=== PATIENT | female | born 1975 | race Caucasian/White ===

== ENCOUNTER 2017-02-21 10:27 | Inpatient (IN) ==
[2017-02-21] MEDS ORDERED: *HR* Morphine 2 MG/ML SYRINGE IVP ONE (10:33)
[2017-02-21] MEDS ORDERED: 0.9 % Sodium Chloride 1,000 ML IVC ONE (10:33)
[2017-02-21] MEDS ORDERED: Ondansetron 4 MG/2 ML VIAL IVP ONE (10:33)
--- NOTE | 2017-02-21 10:37 | Emergency Department Note ---
Disposition Clinical Impression: Vomiting and diarrhea, Colitis Disposition: Admitted As Inpatient Condition: Fair Referrals: NO,PCP [Non-Partnered Physician] - Forms: Work/School Release, ED Satisfaction Letter Time of Disposition: 11:41 Abdominal Pain HPI - General Chief Complaint: ED Abdominal Pain Stated Complaint: abd n/v/d Time Seen by Provider: 02/21/17 10:33 Source: EMS Nursing Notes Reviewed: Yes Vital Signs Reviewed: Yes - History of Present Illness HPI Narrative: 41-year-old female presents emergency room for abdominal pain nausea vomiting and diarrhea. Symptoms started on Tuesday after she ate some taco salad. She states she started throwing up almost immediately after eating. She has had persistent vomiting since Tuesday as well as diarrhea. She has not noted any blood in her vomit or stool. No documented fevers. She is complaining of lower abdominal pain and cramping. She denies any urinary symptoms. She does admit to some chills and riders. She was brought in via ambulance. Onset (ago): day(s) Consistency: constant Location: LLQ, RLQ, suprapubic Pain Severity: moderate Pain Scale: 8 Quality: cramping, aching Migration to: suprapubic Improves with: nothing Worsens with: eating, bowel movement, vomiting Associated symptoms: Reports: nausea, vomiting, diarrhea, chills Treatments prior to arrival: none - Related Data Home Medications Medication Instructions Recorded Confirmed Duloxetine HCl [Cymbalta] 60 mg PO DAILY 04/25/15 08/10/16 Esomeprazole Magnesium [Nexium] 40 mg PO DAILY 04/25/15 08/10/16 Lurasidone HCl [Latuda] 120 mg PO DAILY 04/25/15 08/10/16 Trazodone HCl [TraZODone] 200 mg PO HS 04/25/15 08/10/16 Albuterol Sulfate [Proair Hfa] 1 puff IH TID 05/24/16 08/10/16 Baclofen 10 mg PO BID PRN 05/24/16 08/10/16 Cholecalciferol (Vitamin D3) 1,000 unit PO DAILY 05/24/16 08/10/16 [Vitamin D3] HydrOXYzine Pamoate [Vistaril] 100 mg PO TID 05/24/16 08/10/16 Levothyroxine Sodium [Tirosint] 50 mcg PO DAILY 05/24/16 08/10/16 Ondansetron ODT [Zofran ODT] 4 mg SL Q8H PRN 05/24/16 08/10/16 Prazosin HCl [Minipress] 5 mg PO HS 05/24/16 08/10/16 Propranolol HCl 20 mg PO HS 05/24/16 08/10/16 Ranitidine HCl [Zantac] 150 mg PO BID 05/24/16 08/10/16 Fluticasone Propionate Nasal 1 spray NS DAILY 05/25/16 08/10/16 [Flonase] Vitamin B Complex [B Complex] 1 tab PO DAILY 05/25/16 08/10/16 Albuterol Neb [Proventil Neb] 2.5 mg IH Q4HR 08/10/16 08/10/16 Eluxadoline [Viberzi] 150 mg PO BID 08/10/16 08/10/16 Promethazine [Phenergan] 50 mg RC Q8HR 08/10/16 08/10/16 Previous Rx's Medication Instructions Recorded Promethazine [Phenergan] 25 mg PO Q8HR #10 tablet 08/07/16 Hyoscyamine SL [Levsin Sl] 0.125 mg SL TID #90 tab.subl 08/11/16 Allergies Allergy/AdvReac Type Severity Reaction Status Date / Time latex Allergy Rash Verified 08/10/16 13:30 naproxen [From Naprosyn] Allergy Swelling Verified 08/10/16 13:30 of Lip/Tongue/Throat bismuth subsalicylate AdvReac Vomiting Verified 08/10/16 13:30 [From Pepto-Bismol] caffeine AdvReac Vomiting Verified 08/10/16 13:30 codeine AdvReac Vomiting Verified 08/10/16 13:30 Review of Systems: Gen.: No fevers or chills or new weakness Eyes: Denies double vision or any vision changes Ears: Denies any otalgia Pharynx: Denies sore throat CV: Denies chest pain. Denies palpitations Respiratory: Denies any cough or sputum production. No shortness of breath. GI: + for abdominal pain, nausea vomiting diarrhea Neuro: Denies any headache. No problems with ambulation. No numbness. 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 Psychiatric history: Reports: anxiety, bipolar, PTSD, prior suicide attempt, previous psychiatric hospitalization - Social History Smoking status: Current every day smoker Alcohol use: Reports: none Drug use: Reports: marijuana Physical Exam - General Limitations: no limitations, other (+rigors ) General appearance: anxious, in distress - Head Head exam: atraumatic, normocephalic - Eye Eye exam: Present: normal appearance - ENT ENT exam: mucous membranes dry - Chest Chest inspection: Present: normal inspection - Respiratory Respiratory exam: Present: normal lung sounds bilaterally - Cardiovascular Cardiovascular exam: Present: normal rhythm, tachycardia - Abdominal Exam Abdominal exam: Present: soft, tenderness (Diffuse lower abdominal tenderness. No guarding or rebound. Normal bowel sounds.) - Extremities Exam Extremities exam: Present: normal inspection - Neurological Exam Neurological exam: Present: alert, oriented X3 - Psychiatric Psychiatric exam: Present: normal affect, anxious - Skin Skin exam: Present: warm, dry, intact Course Course Narrative: Patient was given pain medication and antiemetics and IV fluids. Her lactate did come back elevated at 4. CT scan showed evidence of either infectious or inflammatory colitis. She needs to be admitted for further care and treatment with IV antibiotics and IV fluids. She remains afebrile. No significant white count elevation. Vital Signs Temperature 98.9 F 02/21/17 10:29 Pulse Rate 122 02/21/17 10:29 Respiratory Rate 22 02/21/17 10:29 Blood Pressure 136/98 02/21/17 10:29 O2 Sat by Pulse Oximetry 98 02/21/17 10:29 Temperature 98.9 F 02/21/17 10:29 Pulse Rate 62 02/21/17 11:39 Respiratory Rate 18 02/21/17 11:39 Blood Pressure 99/55 02/21/17 11:39 O2 Sat by Pulse Oximetry 98 02/21/17 11:39 Oxygen Delivery Oxygen Delivery Room Air Abdominal Pain - MDM Narrative Medical decision making narrative: will continue fluids, I have ordered IV Levaquin and IV Flagyl to treat for possible infectious colitis. Her pain on exam is correlated to what is seen on CT scan. She does have an elevated lactate level. She is on her second liter fluid at this time. - Medical Records Medical records reviewed: Yes I reviewed the patient's medical records. - Lab Data Lab results reviewed: Yes I reviewed the patient's lab results. Result diagrams: 02/21/17 10:50 02/21/17 10:50 Lab Results 02/21/17 02/21/17 02/21/17 Range/Units 10:35 10:50 10:50 WBC 12.1 H (4.3-11.1) K/mcL RBC 5.47 H (3.82-4.97) M/mcL Hgb 15.9 H (11.5-15.4) g/dL Hct 47.2 H (35.3-44.9) % MCV 86.3 (83.0-100.0) fL MCH 29.1 (28.0-33.3) pg MCHC 33.7 (31.6-35.5) g/dL RDW 14.6 H (11.5-14.5) % Plt Count 331 (140-400) K/mcL MPV 9.9 (9.4-12.4) fL Immature Gran % 0.5 (0-4) % Seg Neutrophils % 74.1 % Lymphocytes % 16.7 % Monocytes % 7.5 % Eosinophils % 0.7 % Basophils % 0.5 % Neutrophils # 8.9 (1.6-8.9) K/mcL Lymphocytes # 2.0 (0.6-4.6) K/mcL Monocytes # 0.9 (0.0-1.3) K/mcL Eosinophils # 0.1 (0.0-0.6) K/mcL Basophils # 0.1 (0.0-0.2) K/mcL Sodium 143 (136-145) mEq/L Potassium 3.4 L (3.5-4.5) mEq/L Chloride 109 (98-109) mEq/L Carbon Dioxide 21 (19-29) mEq/L BUN 6 L (7-20) mg/dL Creatinine 0.85 (0.57-1.11) mg/dL Est GFR ( Amer) > 60 (> 60) Est GFR (Non-Af Amer) > 60 (> 60) BUN/Creatinine Ratio 7 (6-26) Glucose 108 H (70-99) mg/dL POC Glucose 112 H (58-89) Calculated Osmolality 294 (280-300) Lactic Acid (0.5-2.2) mmol/L Calcium 9.9 (8.6-10.8) mg/dL Total Bilirubin 0.3 (0.2-1.2) mg/dL Direct Bilirubin 0.1 (0.0-0.5) mg/dL Indirect Bilirubin 0.2 (0.0-1.2) mg/dL AST 10 (5-34) Units/L ALT 12 (0-55) Units/L Alkaline Phosphatase 138 H (38-126) Units/L Serum Total Protein 7.7 (6.0-8.3) g/dL Albumin 4.0 (3.5-5.0) g/dL Globulin 3.7 H (2.4-3.5) g/dL Albumin/Globulin Ratio 1.1 (1.1-2.2) Lipase 36 (8-78) Units/L // Range/Units 10:50 WBC (4.3-11.1) K/mcL RBC (3.82-4.97) M/mcL Hgb (11.5-15.4) g/dL Hct (35.3-44.9) % MCV (83.0-100.0) fL MCH (28.0-33.3) pg MCHC (31.6-35.5) g/dL RDW (11.5-14.5) % Plt Count (140-400) K/mcL MPV (9.4-12.4) fL Immature Gran % (0-4) % Seg Neutrophils % % Lymphocytes % % Monocytes % % Eosinophils % % Basophils % % Neutrophils # (1.6-8.9) K/mcL Lymphocytes # (0.6-4.6) K/mcL Monocytes # (0.0-1.3) K/mcL Eosinophils # (0.0-0.6) K/mcL Basophils # (0.0-0.2) K/mcL Sodium (136-145) mEq/L Potassium (3.5-4.5) mEq/L Chloride (98-109) mEq/L Carbon Dioxide (19-29) mEq/L BUN (7-20) mg/dL Creatinine (0.57-1.11) mg/dL Est GFR ( Amer) (> 60) Est GFR (Non-Af Amer) (> 60) BUN/Creatinine Ratio (6-26) Glucose (70-99) mg/dL POC Glucose (58-89) Calculated Osmolality (280-300) Lactic Acid 4.0 H* (0.5-2.2) mmol/L Calcium (8.6-10.8) mg/dL Total Bilirubin (0.2-1.2) mg/dL Direct Bilirubin (0.0-0.5) mg/dL Indirect Bilirubin (0.0-1.2) mg/dL AST (5-34) Units/L ALT (0-55) Units/L Alkaline Phosphatase (38-126) Units/L Serum Total Protein (6.0-8.3) g/dL Albumin (3.5-5.0) g/dL Globulin (2.4-3.5) g/dL Albumin/Globulin Ratio (1.1-2.2) Lipase (8-78) Units/L - Radiology Data Radiology results reviewed: Yes I reviewed the patient's radiology results.
[2017-02-21] MEDS ORDERED: *HR* Promethazine 25 MG/ML VIAL IVP ONE (10:55)
[2017-02-21 11:03] LABS: Basophils # 0.1 K/mcL (0.0-0.2); Basophils % 0.5 %; Eosinophils # 0.1 K/mcL (0.0-0.6); Eosinophils % 0.7 %; Hematocrit 47.2 % (35.3-44.9); Hemoglobin 15.9 g/dL (11.5-15.4); Immature Granulocytes % 0.5 % (0-4); Lymphocytes % 16.7 %; Mean Corpuscular HGB Conc 33.7 g/dL (31.6-35.5); Mean Corpuscular Hemoglobin 29.1 pg (28.0-33.3); Mean Corpuscular Volume 86.3 fL (83.0-100.0); Mean Platelet Volume 9.9 fL (9.4-12.4); Monocytes # 0.9 K/mcL (0.0-1.3); Monocytes % 7.5 %; Neutrophils # 8.9 K/mcL (1.6-8.9); Platelet Count 331 K/mcL (140-400); Red Blood Count 5.47 M/mcL (3.82-4.97); Red Cell Distribution Width 14.6 % (11.5-14.5); Segmented Neutrophils % 74.1 %
[2017-02-21 11:14] LABS: Alanine Aminotransferase 12 Units/L (0-55); Albumin/Globulin Ratio 1.1 (1.1-2.2); Alkaline Phosphatase 138 Units/L (38-126); Aspartate Amino Transferase 10 Units/L (5-34); BUN/Creatinine Ratio 7 (6-26); Bilirubin,Direct 0.1 mg/dL (0.0-0.5); Bilirubin,Indirect 0.2 mg/dL (0.0-1.2); Bilirubin,Total 0.3 mg/dL (0.2-1.2); Blood Urea Nitrogen 6 mg/dL (7-20); Calcium 9.9 mg/dL (8.6-10.8); Carbon Dioxide 21 mEq/L (19-29); Chloride 109 mEq/L (98-109); Globulin 3.7 g/dL (2.4-3.5); Glucose 108 mg/dL (70-99); Lipase 36 Units/L (8-78); Osmolality,Calculated 294 (280-300); Potassium 3.4 mEq/L (3.5-4.5); Sodium 143 mEq/L (136-145); Total Protein 7.7 g/dL (6.0-8.3); eGFR For African Americans > 60 (> 60); eGFR For Non-African Americans > 60 (> 60)
[2017-02-21] MEDS ORDERED: MetroNIDAZOLE 500 MG/100 ML 500 MG/100 ML BAG IVPB ONE (11:39)
[2017-02-21] MEDS ORDERED: *HR* HYDROmorphone (PF) 1 MG/ML SYRINGE IVP ONE (11:39)
[2017-02-21 11:45] LABS: Bilirubin,Urine Negative (Negative); Blood,Urine Trace (Negative); Clarity,Urine Clear (Clear); Color,Urine Yellow (Yellow); Glucose,Urine (UA) Normal (Normal); Ketones,Urine Trace mg/dL (Negative); Leukocyte Esterase,Urine Negative (Negative); Nitrite,Urine Negative (Negative); PH,Urine 7.5 pH Units (5.0-8.0); Protein,Urine Negative (Neg-Trace); Specific Gravity,Urine 1.011 (1.010-1.025); Urobilinogen,Urine Normal (Normal)
[2017-02-21 11:48] LABS: Bacteria,Urine None Seen per hpf (None-Few); Hyaline Casts,Urine None Seen per lpf (None-Few); Squamous Epithelial Cell,Urine Many per lpf (None-Few); WBC,Urine 0-3 per hpf (0-3)
[2017-02-21] MEDS: Levofloxacin 750 MG/150 ML 750 MG/150 ML BAG IVPB SCH (11:54)
--- NOTE | 2017-02-21 13:05 | Event Note ---
Date of Encounter: 02/21/17 Time of Encounter: 13:02 Patient seen and examined with nurse practitioner. Food poisoning versus gastroenteritis. Symptoms of intractable abdominal pain nausea vomiting and diarrhea that are both nonbloody for the past 2 days. If you brighten the emergency room. CT scan shows evidence of colitis. In. Antibiotics with ciprofloxacin and Flagyl until stool studies are back. Lactic acid is for. 2 L of fluids were given in the emergency room and continue hydration. Continue NPO. No prior similar problems. she has history of irritable bowel syndrome. Hemodynamically stable except for intermittent hypotension after opiates given in the emergency room. She wants some time to decide on a code status.
[2017-02-21] MEDS ORDERED: Ketorolac 30 MG/ML VIAL IVP PRN (13:18)
[2017-02-21] MEDS ORDERED: Naloxone 0.4 MG/ML INJ IVP PRN (13:18)
[2017-02-21] MEDS ORDERED: *HR* LORazepam 2 MG/ML VIAL IVP ONE (13:28)
--- NOTE | 2017-02-21 13:56 | Internal Med History&Physical ---
Date of Encounter: 02/21/17 Time of Encounter: 13:00 Assessment and Plan (1) Abdominal pain Current visit: Yes Status: Acute Assess: Ms. Wei presents with chief complaint of severe lower abdominal pain with nausea, vomiting, and diarrhea for the past three days. Patient states she became ill after eating a taco salad at home on Tuesday. Her mother reports that no one else became ill from eating the same food. Ms. Wei reports that she is unable to keep anything down due to the continuing nausea and vomiting, and that she continues to experience diarrhea as well. Patient denies any blood present in stool or emesis. Diagnosis for this patient is food poisoning versus gastroenteritis based on current symptoms. Patient's current WBCs on initial blood draw is 12.1. Plan: Blood cultures ordered Urine cultures ordered based on patient's hx of UTIs Stool cultures ordered to include C. difficile and ova/parasites IV Zofran ordered PRN IV Protonix 40 mg daily ordered Supplemental O2 ordered NPO diet except ice chips as tolerated Continue IV levaquin 750 mg daily beginning 02/22/17 due to patient receiving initial dose in ED Resume Flagyl 500 mg Q8 at 21:00 today (02/22/17) Monitor intake and output and daily weight Falls precautions/bed rest w/bathroom privileges/[id number] orders due to patient's dizziness Monitor patient and vital signs Qualifiers: Abdominal location: lower abdomen, unspecified Qualified Code(s): R10.30 - Lower abdominal pain, unspecified (2) Vomiting and diarrhea Current visit: Yes Status: Acute Assess: Ms. Wei reports that she is unable to keep anything down due to the continuing nausea and vomiting, and that she continues to experience diarrhea as well. Patient denies any blood present in stool or emesis. Plan: NPO diet except ice chips as tolerated Cultures for blood, urine, and stool ordered IV fluids 0.9% NS @ 125 mL/HR for hydration Follow-up labs ordered IV Zofran ordered PRN IV Protonix ordered 40 mg daily Monitor input and output Monitor daily weight (3) Leukocytosis (leucocytosis) Current visit: Yes Status: Acute Assess: Patient presents acute leukocytosis related to possible worsening or gastroenteritis. Patient's initial WBCs are 12.1 at first blood draw in ED. Plan: Continue IV levaquin 750 mg daily beginning 02/22/17 due to patient receiving initial dose in ED Resume Flagyl 500 mg Q8 at 21:00 today (02/22/17) Blood cultures ordered Urine cultures ordered based on patient's hx of UTIs Stool cultures ordered to include C. difficile and ova/parasites Repeat lactic acid ordered Qualifiers: Leukocytosis type: lymphocytosis Qualified Code(s): D72.820 - Lymphocytosis (symptomatic) (4) Hypokalemia Current visit: Yes Status: Acute Assess: Patient presents with acute hypokalemia most likely due to current nausea, vomiting, diarrhea, and dehydration for the past three days. Plan: IV Potassium piggyback 10 meq ONCE ordered Follow-up labs ordered (5) Irritable bowel syndrome Current visit: Yes Status: Chronic Assess: Patient presents with history of irritable bowel syndrome. Plan: Continue patient's current medications NPO diet except ice chips as tolerated until current symptoms subside Fecal occult guaic ordered Monitor input and output Qualifiers: Irritable bowel syndrome type: with both diarrhea and constipation Qualified Code(s): K58.2 - Mixed irritable bowel syndrome (6) GERD (gastroesophageal reflux disease) Current visit: Yes Status: Chronic Assess: Patient presents with a history of chronic gastroesophageal reflux disease. Plan: IV Zofran ordered PRN IV Protonix 40 mg daily ordered Continue patient's medications Qualifiers: Esophagitis presence: esophagitis presence not specified Qualified Code(s) : K21.9 - Gastro-esophageal reflux disease without esophagitis (7) DVT prophylaxis Current visit: Yes Status: Acute Assess: Patient placed on DVT prophylaxis due to inpatient protocol and current bedrest status. Plan: Heparin 5,000 units SQ Q8 ordered Internal Medicine - H&P: HPI Chief complaint: Abdominal pain/N/V/D Admitted From: Emergency Dept Plans for Post Hospital Care: Home History of present illness: Ms. Wei is a 41 year old female who presents from the ED with chief complaint of severe lower abdominal pain with nausea, vomiting, and diarrhea for the past three days. Patient states she became ill after eating a taco salad at home on Tuesday. Her mother reports that no one else became ill from eating the same food. Ms. Wei reports that she is unable to keep anything down due to the continuing nausea and vomiting, and that she continues to experience diarrhea as well. Patient denies any blood present in stool or emesis. Patient denies fever but reports chills and uncontrollable shaking earlier today (02/21/17). Patient states that the pain is located in the suprapubic area more so than the epigastric area. She also states that she had something similar one year ago and reports Dr. Gardiner performed an EGD and colonoscopy. She states the occurrence last year was attributed to heightened stress in her life. Ms. Wei has a history of IBS, GERD, tendinitis, fibromyalgia, neuropathy, asthma, COPD, migraines, osteoporosis, thyroid disease , anxiety, depression, bipolar disorder, borderline personality disorder, PTSD, and prior suicide attempts involving pills and cutting. Patient's lactic acid is currently 4.0 on initial blood draw ED. Patient to be admitted as inpatient due to elevated lactic acid and will be placed nothing by mouth with ice chips as tolerated. She received IV Zofran, IV Protonix, and IV fluids. Orders have been placed for a urine tox screen, urine cultures, blood cultures, and stool cultures (to include ova and parasites and C. difficile). Lactic acid will be repeated. We will continue IV levaquin 750 mg daily beginning 02/22/17 due to patient receiving dose today in ED and IV flagyl 500 mg Q8 resuming at 21:00 today (02/21/17) for infection coverage. Bed rest, falls precautions, and up- with assist orders placed due to patient's current dizziness. Patient to be monitored closely. Past Med Surg Social Fam HX - Past Medical History Source: patient Medical history: arthritis, asthma, COPD, fibromyalgia, GERD, migraine, osteoporosis, thyroid disease, other Psychiatric history: anxiety, bipolar, depression, PTSD, prior suicide attempt ( Patient reports multiple attempts using pills and cutting wrists.), previous psychiatric hospitalization, other (Borderline personality disorder) - Past Surgical History Surgical History: hysterectomy, other (Surgery for deviated septum) - Social History Smoking Status: Current every day smoker Packs per day: 1 PPD Smokeless Tobacco Status: No Alcohol use: none Drug use: marijuana Current living situation: Home, With Family Activity Level: Independent ambulation Recent Out of Country Travel Within the Last 8 Weeks: No Exposure or Possible Exposure to Illness During Travel: No - Family History Father Adopted: No Race: Family Member Ethnicity: Non- Living Status: Age at : 58 Cause of : Esophageal cancer Hx Family Cardiac Disorders: Yes (hyperlipidemia) Hx Family Respiratory Disorders: No Hx Family Cancer: Yes (Esophageal) Hx Family GI Disorders: No Hx Family Endocrine Disorder: No Hx Family Neuromuscular Disorders: No Hx Family Neurologic Disorders: Yes (anxiety) Hx Family HEENT Disorders: No Hx Family Autoimmune Disorders: No Mother Adopted: No Race: Family Member Ethnicity: Non- Living Status: Still Living Hx Family Cardiac Disorders: No Hx Family Respiratory Disorders: Yes (COPD) Hx Family Cancer: No Hx Family GI Disorders: Yes (Kidney stones, IBS) Hx Family Endocrine Disorder: No Hx Family Neuromuscular Disorders: No Hx Family Neurologic Disorders: Yes (Anxiety) Hx Family HEENT Disorders: No Hx Family Autoimmune Disorders: No Internal Medicine - H&P: Meds Duloxetine HCl [Cymbalta] 60 mg PO DAILY 04/25/15 [History] Esomeprazole Magnesium [Nexium] 40 mg PO DAILY 04/25/15 [History] Lurasidone HCl [Latuda] 120 mg PO DAILY 04/25/15 [History] Trazodone HCl [TraZODone] 200 mg PO HS 04/25/15 [History] Albuterol Sulfate [Proair Hfa] 1 puff IH TID 05/24/16 [History] Baclofen 10 mg PO BID PRN 05/24/16 [History] Cholecalciferol (Vitamin D3) [Vitamin D3] 1,000 unit PO DAILY 05/24/16 [History] HydrOXYzine Pamoate [Vistaril] 100 mg PO TID 05/24/16 [History] Levothyroxine Sodium [Tirosint] 50 mcg PO DAILY 05/24/16 [History] Ondansetron ODT [Zofran ODT] 4 mg SL Q8H PRN 05/24/16 [History] Prazosin HCl [Minipress] 5 mg PO HS 05/24/16 [History] Propranolol HCl 20 mg PO HS 05/24/16 [History] Ranitidine HCl [Zantac] 150 mg PO BID 05/24/16 [History] Fluticasone Propionate Nasal [Flonase] 1 spray NS DAILY 05/25/16 [History] Vitamin B Complex [B Complex] 1 tab PO DAILY 05/25/16 [History] Promethazine [Phenergan] 25 mg PO Q8HR #10 tablet 08/07/16 [Rx] Albuterol Neb [Proventil Neb] 2.5 mg IH Q4HR 08/10/16 [History] Eluxadoline [Viberzi] 150 mg PO BID 08/10/16 [History] Promethazine [Phenergan] 50 mg RC Q8HR 08/10/16 [History] Montelukast [Singulair] 10 mg PO DAILY 02/21/17 [History] Pantoprazole Sodium [Protonix] 40 mg PO BID 02/21/17 [History] Pregabalin [Lyrica] 150 mg PO BID 02/21/17 [History] diazePAM [Valium] 5 mg PO DAILY PRN 02/21/17 [History] Allergies latex Allergy (Verified 08/10/16 13:30) Rash naproxen [From Naprosyn] Allergy (Verified 08/10/16 13:30) Swelling of Lip/Tongue/Throat bismuth subsalicylate [From Pepto-Bismol] Adverse Reaction (Verified 08/10/16 13 :30) Vomiting caffeine Adverse Reaction (Verified 08/10/16 13:30) Vomiting codeine Adverse Reaction (Verified 08/10/16 13:30) Vomiting All Systems PM: A 10-system review of systems was performed and is negative for pertinent findings except as documented above in the HPI. - Constitutional Constitutional: as per HPI, anorexia, chills - EENT Eyes: no change in vision, no discharge, no pain, no photophobia Ears: no ear discharge, no ear pain, no tinnitus Nose, mouth and throat: no dysphagia, no nasal discharge, no neck pain, no sore throat - Breasts Breasts: as per HPI - Cardiovascular Cardiovascular ROS IM: as per HPI, lightheadedness, no chest pain, no diaphoresis, no dyspnea, no palpitations, no syncope - Respiratory Respiratory: no cough, no dyspnea, no wheezing, no excessive phlegm production - Gastrointestinal Gastrointestinal: as per HPI, abdominal pain, cramping, diarrhea, nausea, vomiting - Genitourinary Genitourinary: no change in urinary stream, no dysuria, no flank pain, no hematuria Menstruation: as per HPI, post hysterectomy - Musculoskeletal Musculoskeletal ROS IM: no numbness, no tingling - Integumentary Integumentary IM: no rash, no unusual bruising - Neurological Neurological ROS: as per HPI, dizziness, weakness, no confusion, no convulsions , no focal weakness, no numbness, no tingling, no tremor(s) - Psychiatric Psychiatric: as per HPI - Endocrine Endocrine IM: as per HPI - Hematologic/Lymphatic Hematologic/Lymphatic: no easy bruising - Allergic/Immunologic Allergic/Immunologic: as per HPI - Constitutional Vitals: Temp Pulse Resp BP Pulse Ox 99 F 62 18 99/55 98 02/21/17 11:39 02/21/17 11:39 02/21/17 11:39 02/21/17 11:39 02/21/17 11:39 General appearance: Present: cooperative, A&O X 3, obese, severe distress, answers questions appropriately - Head Head exam: Present: atraumatic, normocephalic - Eye Eye exam: Present: PERRL, conjuntiva pink, sclera anicteric Pupils: Present: PERRL - ENT ENT exam: Present: normal exam, normal external ear exam - Neck Neck exam general surgery: Present: supple, trachea midline. Absent: lymphadenopathy - Respiratory Respiratory exam: Present: CTAB. Absent: accessory muscle use, rales, rhonchi, wheezes - Cardiovascular Cardiovascular exam: Present: RRR, +S1, +S2. Absent: diastolic murmur, gallop, rubs, systolic murmur - GI/Abdominal GI/Abdominal exam: Present: guarding, hypoactive bowel sounds, soft, tenderness - Rectal Rectal exam: Present: deferred - Additional comments: exam deferred. - Extremities Exam Extremities exam: Present: warm, radial pulses palpable and symetrical. Absent : calf tenderness, cyanotic, pedal edema - Back Exam Back exam: Present: normal inspection - Neurological Exam Neurological exam: Present: altered (Patient appears mildly altered and is slow to respond to questions during examination), CN II-XII intact, oriented X3, no focal deficits. Absent: pronater drift, facial droop, speech deficit - Psychiatric Psychiatric exam: Present: anxious, depressed - Skin Skin exam: Present: dry, intact Internal Med - H&P Results - Labs CBC & Chem 7: 02/21/17 10:50 02/21/17 10:50 Labs: Short CBC 02/21/17 Range/Units 10:50 WBC 12.1 H (4.3-11.1) K/mcL Hgb 15.9 H (11.5-15.4) g/dL Hct 47.2 H (35.3-44.9) % Plt Count 331 (140-400) K/mcL Neutrophils # 8.9 (1.6-8.9) K/mcL BMP 02/21/17 10:50 Sodium 143 Potassium 3.4 L Chloride 109 Carbon Dioxide 21 BUN 6 L Creatinine 0.85 Glucose 108 H Calcium 9.9 Liver Function 02/21/17 Range/Units 10:50 Total Bilirubin 0.3 (0.2-1.2) mg/dL Direct Bilirubin 0.1 (0.0-0.5) mg/dL AST 10 (5-34) Units/L ALT 12 (0-55) Units/L Alkaline Phosphatase 138 H (38-126) Units/L Albumin 4.0 (3.5-5.0) g/dL Urine 02/21/17 Range/Units 11:30 Urine Color Yellow (Yellow) Urine Clarity Clear (Clear) Urine pH 7.5 (5.0-8.0) pH Units Ur Specific [place] 1.011 (1.010-1.025) Urine Protein Negative (Neg-Trace) mg/dL Urine Glucose (UA) Normal (Normal) mg/dL - Impressions ITS Impressions Abdomen/Pelvis CT 02/21/17 10:40 IMPRESSION: 1. There is mild reticulation in the fat surrounding the rectum and descending colon which may be related to an infectious/inflammatory colitis. There is an associated small amount of free pelvic fluid. No focal fluid collection or abscess. 2. Bilateral inguinal hernias containing fat, stable. D/ / 02/21/2017 11:32:18 Krystian Odell MD / margarita Interpreting Provider: Krystian Odell MD - Diagnostic Studies CT scan - abdomen Additional comments: Impressions Abdomen/Pelvis CT 02/21/17 10:40
[2017-02-21] MEDS ORDERED: Baclofen 10 MG TABLET PO PRN (14:57)
[2017-02-21] MEDS: Albuterol 2.5 MG/3 ML NEBULIZER IH SCH ×3 (15:34→23:07)
[2017-02-21] MEDS: 0.9 % Sodium Chloride 1,000 ML IVC SCH (16:38)
[2017-02-21] MEDS: *HR* Heparin 5,000 UNIT/ML VIAL SQ SCH ×2 (16:39→22:34)
[2017-02-21] MEDS: Ondansetron 4 MG/2 ML VIAL IVP PRN (19:32)
[2017-02-21] MEDS: *HR* HYDROmorphone (PF) 1 MG/ML SYRINGE IVP PRN ×2 (19:32→23:54)
[2017-02-21] MEDS ORDERED: MetroNIDAZOLE 500 MG/100 ML 500 MG/100 ML BAG IVPB SCH (21:00)
[2017-02-21] MEDS: Pregabalin 75 MG CAPSULE PO SCH (22:29)
[2017-02-21] MEDS: ELUXADOLINE PO SCH (22:30)
[2017-02-21] MEDS: hydrOXYzine pamoate 25 MG CAPSULE PO SCH (22:30)
[2017-02-21] MEDS: traZODone 50 MG TABLET PO SCH (22:30)
[2017-02-21 22:51] LABS: Amphetamine Screen,Urine Negative ng/mL (Cutoff=1000); Barbiturate Screen,Urine Negative ng/mL (Cutoff=200); Benzodiazepines Screen,Urine Positive ng/mL (Cutoff=200); Cannabinoid Screen,Urine Positive ng/mL (Cutoff = 50); Cocaine Screen,Urine Negative ng/mL (Cutoff= 300); Opiate Screen,Urine Positive ng/mL (Cutoff=300); Phencyclidine Screen,Urine Negative ng/mL (Cutoff=25)
[2017-02-22] MEDS: 0.9 % Sodium Chloride 1,000 ML IVC SCH (02:00)
[2017-02-22] MEDS: Albuterol 2.5 MG/3 ML NEBULIZER IH SCH ×5 (03:38→23:33)
[2017-02-22] MEDS: *HR* HYDROmorphone (PF) 1 MG/ML SYRINGE IVP PRN ×5 (04:26→23:11)
[2017-02-22] MEDS: D5% in 0.45% NACL 1,000 ML IVC SCH (06:37)
[2017-02-22] MEDS: Ondansetron 4 MG/2 ML VIAL IVP PRN ×2 (06:39→19:51)
[2017-02-22 06:58] LABS: Basophils % 0.6 %; Eosinophils # 0.1 K/mcL (0.0-0.6); Eosinophils % 1.1 %; Hematocrit 35.9 % (35.3-44.9); Immature Granulocytes % 0.3 % (0-4); Lymphocytes # 3.5 K/mcL (0.6-4.6); Lymphocytes % 48.3 %; Mean Corpuscular HGB Conc 32.6 g/dL (31.6-35.5); Mean Corpuscular Hemoglobin 28.9 pg (28.0-33.3); Mean Corpuscular Volume 88.6 fL (83.0-100.0); Mean Platelet Volume 10.5 fL (9.4-12.4); Monocytes # 0.9 K/mcL (0.0-1.3); Neutrophils # 2.7 K/mcL (1.6-8.9); Platelet Count 242 K/mcL (140-400); Red Blood Count 4.05 M/mcL (3.82-4.97); Red Cell Distribution Width 14.9 % (11.5-14.5); Segmented Neutrophils % 37.7 %
[2017-02-22 07:00] LABS: Hemoglobin 11.7 g/dL (11.5-15.4)
[2017-02-22 07:27] LABS: Alanine Aminotransferase 7 Units/L (0-55); Albumin 2.6 g/dL (3.5-5.0); Alkaline Phosphatase 89 Units/L (38-126); Aspartate Amino Transferase 11 Units/L (5-34); BUN/Creatinine Ratio 8 (6-26); Bilirubin,Total 0.3 mg/dL (0.2-1.2); Blood Urea Nitrogen 6 mg/dL (7-20); Calcium 8.4 mg/dL (8.6-10.8); Carbon Dioxide 21 mEq/L (19-29); Chloride 116 mEq/L (98-109); Chol/HDL Ratio 4.8 (0-4.9); Cholesterol 155 mg/dL (< 200); Globulin 2.6 g/dL (2.4-3.5); Glucose 76 mg/dL (70-99); HDL Cholesterol 32 mg/dL (40-59); LDL Cholesterol,Calculated 112 mg/dL (0-99); Magnesium 1.8 mg/dL (1.6-2.6); Osmolality,Calculated 292 (280-300); Phosphorous 3.2 mg/dL (2.3-4.7); Potassium 3.7 mEq/L (3.5-4.5); Sodium 143 mEq/L (136-145); Total Protein 5.2 g/dL (6.0-8.3); Triglycerides 57 mg/dL (< 150); eGFR For African Americans > 60 (> 60); eGFR For Non-African Americans > 60 (> 60)
[2017-02-22] MEDS: Vitamin B Complex/Vit C/Vit E 1 EACH TABLET PO SCH (08:29)
[2017-02-22] MEDS: hydrOXYzine pamoate 25 MG CAPSULE PO SCH ×2 (08:29→22:59)
[2017-02-22] MEDS: Pantoprazole 40 MG VIAL IVP SCH (08:29)
[2017-02-22] MEDS: Pregabalin 75 MG CAPSULE PO SCH ×2 (08:29→23:00)
[2017-02-22] MEDS: Cholecalciferol (D-3) 1,000 UNIT TABLET PO SCH (08:30)
[2017-02-22] MEDS: ELUXADOLINE PO SCH ×2 (08:33→23:00)
[2017-02-22] MEDS: *HR* Heparin 5,000 UNIT/ML VIAL SQ SCH ×3 (08:33→22:59)
[2017-02-22] MEDS: Fluticasone Propionate Nasal 50 MCG/SPRAY BOTTLE NS SCH (08:33)
[2017-02-22] MEDS: Levofloxacin 750 MG/150 ML 750 MG/150 ML BAG IVPB SCH (08:35)
[2017-02-22] MEDS ORDERED: Levofloxacin 750 MG/150 ML 750 MG/150 ML BAG IVPB SCH (09:00)
[2017-02-22] MEDS: MetroNIDAZOLE 500 MG/100 ML 500 MG/100 ML BAG IVPB SCH ×2 (10:32→17:36)
[2017-02-22] MEDS: diazePAM 5 MG TABLET PO PRN (14:24)
--- NOTE | 2017-02-22 16:16 | Internal Med Progress Note ---
Date of Encounter: 02/22/17 Time of Encounter: 09:35 - Assessment and plan (1) Acute gastroenteritis Current Visit: Yes Status: Acute Assessment and plan: Improving, continue Flagl, Levaquin (2) Irritable bowel syndrome Current Visit: Yes Status: Chronic Assessment and plan: follows up with gastroenterology as outpatient Qualifiers: Irritable bowel syndrome type: with both diarrhea and constipation Qualified Code(s): K58.2 - Mixed irritable bowel syndrome (3) GERD (gastroesophageal reflux disease) Current Visit: Yes Status: Chronic Assessment and plan: continue pantoprazole Qualifiers: Esophagitis presence: esophagitis presence not specified Qualified Code(s) : K21.9 - Gastro-esophageal reflux disease without esophagitis (4) Tobacco abuse Current Visit: No Status: Chronic Assessment and plan: NRT, counselled about cessation - Time Spent With Patient less than 15 minutes - Subjective Interval history: Patient is awake and alert. Not in any distress. Feels better. States he diarrhea and vomiting have improved. Wants to eat. No fever. No other acute events or complaints. - Constitutional Vitals: Temp Pulse Resp BP Pulse Ox 99.0 F 50 16 107/62 94 02/22/17 15:40 02/22/17 15:40 02/22/17 15:40 02/22/17 15:40 02/22/17 15:40 General appearance: Present: cooperative, A&O X 3, no acute distress, answers questions appropriately - ENT ENT exam: Present: mucous membranes dry - Neck Neck exam general surgery: Present: supple - Respiratory Respiratory exam: Present: CTAB. Absent: rhonchi, wheezes - Cardiovascular Cardiovascular exam: Present: RRR, +S1, +S2 - GI/Abdominal GI/Abdominal exam: Present: soft, tenderness (mild epigastric). Absent: guarding - Extremities Exam Extremities exam: Present: radial pulses palpable and symetrical. Absent: cyanotic, pedal edema - Neurological Exam Neurological exam: Present: alert, oriented X3, no focal deficits Internal Medicine: Result - Labs CBC & Chem 7: 02/22/17 06:21 02/22/17 06:21 Labs: Short CBC 02/22/17 Range/Units 06:21 WBC 7.2 (4.3-11.1) K/mcL Hgb 11.7 D (11.5-15.4) g/dL Hct 35.9 (35.3-44.9) % Plt Count 242 (140-400) K/mcL Neutrophils # 2.7 (1.6-8.9) K/mcL BMP 02/22/17 06:21 Sodium 143 Potassium 3.7 Chloride 116 H Carbon Dioxide 21 BUN 6 L Creatinine 0.71 Glucose 76 Calcium 8.4 L D Liver Function 02/22/17 Range/Units 06:21 Total Bilirubin 0.3 (0.2-1.2) mg/dL AST 11 (5-34) Units/L ALT 7 (0-55) Units/L Alkaline Phosphatase 89 (38-126) Units/L Albumin 2.6 L D (3.5-5.0) g/dL - VTE Documentation of Mechanical Device: Intermittent pneumatic compression device Consult Discharge Plan - Plan Referrals: Yudelka Whittington MD [Primary Care Provider] -
[2017-02-22] MEDS: Nicotine 21 MG PATCH.TD24 TD SCH (17:35)
[2017-02-22] MEDS: traZODone 50 MG TABLET PO SCH (22:59)
[2017-02-23] MEDS: *HR* Heparin 5,000 UNIT/ML VIAL SQ SCH ×3 (00:28→17:01)
[2017-02-23] MEDS: D5% in 0.45% NACL 1,000 ML IVC SCH ×4 (00:32→13:16)
[2017-02-23] MEDS ORDERED: Ondansetron 4 MG/2 ML VIAL IVP PRN (01:34)
[2017-02-23] MEDS ORDERED: Ondansetron 4 MG/2 ML VIAL IVP ONE (01:34)
[2017-02-23] MEDS ORDERED: Albuterol 2.5 MG/3 ML NEBULIZER IH PRN (01:35)
[2017-02-23] MEDS: *HR* Morphine 2 MG/ML SYRINGE IVP PRN ×4 (01:44→20:33)
[2017-02-23] MEDS: MetroNIDAZOLE 500 MG/100 ML 500 MG/100 ML BAG IVPB SCH ×3 (04:16→19:31)
[2017-02-23] MEDS: hydrOXYzine pamoate 25 MG CAPSULE PO SCH ×2 (07:45→20:33)
[2017-02-23] MEDS: Pregabalin 75 MG CAPSULE PO SCH ×2 (07:46→20:33)
[2017-02-23] MEDS: Vitamin B Complex/Vit C/Vit E 1 EACH TABLET PO SCH (07:46)
[2017-02-23] MEDS: Nicotine 21 MG PATCH.TD24 TD SCH (07:46)
[2017-02-23] MEDS: Pantoprazole 40 MG VIAL IVP SCH (07:47)
[2017-02-23] MEDS: Cholecalciferol (D-3) 1,000 UNIT TABLET PO SCH (07:47)
[2017-02-23] MEDS: Levofloxacin 750 MG/150 ML 750 MG/150 ML BAG IVPB SCH (07:48)
[2017-02-23] MEDS: ELUXADOLINE PO SCH ×2 (10:44→20:34)
[2017-02-23] MEDS ORDERED: Fluconazole 100 MG TABLET PO ONE (15:44)
--- NOTE | 2017-02-23 16:29 | Internal Med Progress Note ---
Date of Encounter: 02/23/17 Time of Encounter: 11:00 - Assessment and plan (1) Acute gastroenteritis Current Visit: Yes Status: Acute Assessment and plan: Improving, continue Flagyl, Levaquin (2) Irritable bowel syndrome Current Visit: Yes Status: Chronic Assessment and plan: follows up with gastroenterology as outpatient Qualifiers: Irritable bowel syndrome type: with both diarrhea and constipation Qualified Code(s): K58.2 - Mixed irritable bowel syndrome (3) GERD (gastroesophageal reflux disease) Current Visit: Yes Status: Chronic Assessment and plan: continue pantoprazole Qualifiers: Esophagitis presence: esophagitis presence not specified Qualified Code(s) : K21.9 - Gastro-esophageal reflux disease without esophagitis (4) Tobacco abuse Current Visit: No Status: Chronic Assessment and plan: NRT, counselled about cessation - Time Spent With Patient less than 15 minutes - Subjective Interval history: Patient is awake and alert. Not in any distress. Feels better. States her diarrhea and vomiting have improved. Tolerating oral diet. Emotionally labile. No fever. No other acute events or complaints. - Constitutional Vitals: Temp Pulse Resp BP Pulse Ox 98.2 F 60 17 97/61 99 02/23/17 14:02 02/23/17 14:02 02/23/17 14:02 02/23/17 14:02 02/23/17 14:02 General appearance: Present: cooperative, A&O X 3, no acute distress, answers questions appropriately - Head Head exam: Present: atraumatic - Neck Neck exam general surgery: Present: supple - Respiratory Respiratory exam: Present: CTAB. Absent: rhonchi, wheezes - Cardiovascular Cardiovascular exam: Present: RRR, +S1, +S2 - GI/Abdominal GI/Abdominal exam: Present: soft. Absent: guarding, tenderness - Extremities Exam Extremities exam: Present: radial pulses palpable and symetrical. Absent: cyanotic, pedal edema - Neurological Exam Neurological exam: Present: alert, oriented X3, no focal deficits Internal Medicine: Result - Labs CBC & Chem 7: 02/22/17 06:21 02/22/17 06:21 - VTE Documentation of Mechanical Device: Intermittent pneumatic compression device Consult Discharge Plan - Plan Referrals: Yudelka Whittington MD [Primary Care Provider] -
[2017-02-23] MEDS: diazePAM 5 MG TABLET PO PRN (17:10)
[2017-02-23] MEDS: Nystatin SUSP 5 ML UD.LIQ PO SCH ×2 (17:10→20:33)
[2017-02-23] MEDS: Fluticasone Propionate Nasal 50 MCG/SPRAY BOTTLE NS SCH (17:24)
[2017-02-23] MEDS: traZODone 50 MG TABLET PO SCH (20:33)
[2017-02-24] MEDS: *HR* Morphine 2 MG/ML SYRINGE IVP PRN ×3 (00:20→07:56)
[2017-02-24] MEDS: *HR* Heparin 5,000 UNIT/ML VIAL SQ SCH ×2 (00:23→10:50)
[2017-02-24] MEDS: D5% in 0.45% NACL 1,000 ML IVC SCH (02:17)
[2017-02-24] MEDS: MetroNIDAZOLE 500 MG/100 ML 500 MG/100 ML BAG IVPB SCH (02:18)
[2017-02-24] MEDS: Pantoprazole 40 MG VIAL IVP SCH (07:57)
[2017-02-24] MEDS: Nystatin SUSP 5 ML UD.LIQ PO SCH (07:57)
[2017-02-24] MEDS: Vitamin B Complex/Vit C/Vit E 1 EACH TABLET PO SCH (07:57)
[2017-02-24] MEDS: Pregabalin 75 MG CAPSULE PO SCH (07:57)
[2017-02-24] MEDS: Nicotine 21 MG PATCH.TD24 TD SCH (07:58)
[2017-02-24] MEDS: hydrOXYzine pamoate 25 MG CAPSULE PO SCH (07:58)
[2017-02-24] MEDS: Cholecalciferol (D-3) 1,000 UNIT TABLET PO SCH (07:58)
[2017-02-24] MEDS: Levofloxacin 750 MG/150 ML 750 MG/150 ML BAG IVPB SCH (07:59)
--- NOTE | 2017-02-24 10:21 | Discharge Summary ---
Date of Encounter: 02/24/17 Time of Encounter: 08:15 - Discharge Diagnosis (1) Acute gastroenteritis Priority: Primary Status: Acute Comments: Resolved, continue Flagyl (2) Irritable bowel syndrome Priority: Secondary Status: Chronic Comments: follows up with gastroenterology as outpatient Qualifiers: Irritable bowel syndrome type: with both diarrhea and constipation Qualified Code(s): K58.2 - Mixed irritable bowel syndrome (3) GERD (gastroesophageal reflux disease) Priority: Secondary Status: Chronic Comments: continue pantoprazole Qualifiers: Esophagitis presence: esophagitis presence not specified Qualified Code(s) : K21.9 - Gastro-esophageal reflux disease without esophagitis (4) Tobacco abuse Priority: Secondary Status: Chronic Comments: NRT, counselled about cessation - Discharge Medications Prescriptions: OxyCODONE/APAP 5/325 [Percocet 5/325 MG] 1 each PO Q8HR PRN #7 tablet PRN Reason: Pain Fluconazole [Diflucan] 150 mg PO DAILY #1 tab metroNIDAZOLE [Flagyl] 500 mg PO BID 7 Days Nicotine Patch [Nicoderm] 21 mg TD DAILY #30 patch.td24 Nystatin [Nystatin Suspension] 100,000 units PO QID #120 ml Home Medications: Duloxetine HCl [Cymbalta] 60 mg PO DAILY 04/25/15 [History] Lurasidone HCl [Latuda] 120 mg PO DAILY 04/25/15 [History] Trazodone HCl [TraZODone] 200 mg PO HS 04/25/15 [History] Albuterol Sulfate [Proair Hfa] 1 puff IH TID 05/24/16 [History] Cholecalciferol (Vitamin D3) [Vitamin D3] 1,000 unit PO DAILY 05/24/16 [History] HydrOXYzine Pamoate [Vistaril] 50 mg PO BID 05/24/16 [History] Levothyroxine Sodium [Tirosint] 50 mcg PO DAILY 05/24/16 [History] Ondansetron ODT [Zofran ODT] 4 mg SL Q8H PRN 05/24/16 [History] Prazosin HCl [Minipress] 5 mg PO HS 05/24/16 [History] Propranolol HCl 20 mg PO HS 05/24/16 [History] Ranitidine HCl [Zantac] 150 mg PO BID 05/24/16 [History] Vitamin B Complex [B Complex] 1 tab PO DAILY 05/25/16 [History] Albuterol Neb [Proventil Neb] 2.5 mg IH Q4HR 08/10/16 [History] Eluxadoline [Viberzi] 150 mg PO BID 08/10/16 [History] Montelukast [Singulair] 10 mg PO DAILY 02/21/17 [History] Pantoprazole Sodium [Protonix] 40 mg PO BID 02/21/17 [History] Fluconazole [Diflucan] 150 mg PO DAILY #1 tab 02/24/17 [Rx] Fluticasone Propionate Nasal [Flonase] 50 mcg NS DAILY bottle 02/24/17 [Rx] Nicotine Patch [Nicoderm] 21 mg TD DAILY #30 patch.td24 02/24/17 [Rx] Nystatin [Nystatin Suspension] 100,000 units PO QID #120 ml 02/24/17 [Rx] OxyCODONE/APAP 5/325 [Percocet 5/325 MG] 1 each PO Q8HR PRN #7 tablet 02/24/17 [ Rx] Pregabalin [Lyrica] 150 mg PO BID capsule 02/24/17 [Rx] metroNIDAZOLE [Flagyl] 500 mg PO BID 7 Days 02/24/17 [Rx] Allergies/Adverse Reactions: Allergies latex Allergy (Verified 08/10/16 13:30) Rash naproxen [From Naprosyn] Allergy (Verified 08/10/16 13:30) Swelling of Lip/Tongue/Throat bismuth subsalicylate [From Pepto-Bismol] Adverse Reaction (Verified 08/10/16 13 :30) Vomiting caffeine Adverse Reaction (Verified 08/10/16 13:30) Vomiting codeine Adverse Reaction (Verified 08/10/16 13:30) Vomiting Date of admission: 02/21/17 14:08 Primary care physician: Yudelka Whittington Anticipated date of discharge: 02/24/17 - Patient Status Disposition: Home, Self-Care Condition: Good Functional capacity at discharge: independent ambulation Overall status at discharge: patient is progressing back to baseline - Discharge Instructions Instructions: Gastroenteritis (DC) Follow Up With: Yudelka Whittington MD [Primary Care Provider] - 03/04/17 11:15 am - Diet and Activity Activity: resume usual activities as tolerated Diet: low fat, low cholesterol Hospital course: Ms. Wei is a 41 year old female who presented to the ED with chief complaint of severe lower abdominal pain with nausea, vomiting, and diarrhea. Patient states she became ill after eating a taco salad at home. Her mother reported that no one else became ill from eating the same food. Ms. Wei reported that she was unable to keep anything down due to the continuing nausea and vomiting, and she continued to experience diarrhea as well. Patient denied any blood present in stool or emesis. Patient denied fever but reported chills and uncontrollable shaking earlier today (02/21/17). Patient stated that the pain was located in the suprapubic area more so than the epigastric area. She also stated that she had something similar one year ago and reports Dr. Gardiner performed an EGD and colonoscopy. She states the occurrence last year was attributed to heightened stress in her life. Ms. Wei has a history of IBS , GERD, tendinitis, fibromyalgia, neuropathy, asthma, COPD, migraines, osteoporosis, thyroid disease, anxiety, depression, bipolar disorder, borderline personality disorder, PTSD, and prior suicide attempts involving pills and cutting. Patient's lactic acid was 4.0 on initial blood draw ED. She received IV Zofran, IV Protonix, and IV fluids. Patient was started on IV Levaquin and Flagyl. Diet was slowly advanced. She tolerated clear liquids and then regular diet. Symptoms of diarrhea and vomiting have now resolved. Patient is emotionally labile. She has been advised to continue all her home meds regularly. She states she will follow up with her GI specialist for her IBS. At the time of discharge, patient is awake and alert. not in any distress. Explained about condition and plan of care. Understood and agreed. No unanswered questions. Feels better and wants to go home. No complications. Advised about smoking cessation. Time spent discussing smoking cessation with patient: 3 to 10 minutes - Time Spent with Patient Total time spent providing and/or coordinating discharge services: Less than 30 minutes - Constitutional Vitals: Temp Pulse Resp BP Pulse Ox 98.1 F 71 16 113/75 93 02/24/17 06:53 02/24/17 06:53 02/24/17 06:53 02/24/17 06:53 02/24/17 06:53 General appearance: Present: cooperative, A&O X 3, no acute distress, answers questions appropriately - Head Head exam: Present: atraumatic - Neck Neck exam general surgery: Present: supple - Respiratory Respiratory exam: Present: CTAB. Absent: rhonchi, wheezes - Cardiovascular Cardiovascular exam: Present: RRR, +S1, +S2 - GI/Abdominal GI/Abdominal exam: Present: soft. Absent: guarding, tenderness - Extremities Exam Extremities exam: Present: radial pulses palpable and symetrical. Absent: cyanotic, pedal edema - Neurological Exam Neurological exam: Present: alert, oriented X3, no focal deficits - VTE Documentation of Mechanical Device: Intermittent pneumatic compression device
[2017-02-24 10:51] VITALS: BP 111/68
[2017-02-24] MEDS: 0.9 % Sodium Chloride 1,000 ML IVC SCH (10:51)
[2017-02-24] MEDS: diazePAM 5 MG TABLET PO PRN (10:54)
== END 2017-02-24 12:55 | disposition home or self-care (01) | DRG 392 ==
LOC: EMEROO 10:27 → 3BNU 14:08 → 3ANU 02-22 23:46
PROVIDERS: ADMIT Hospitalist; ATTEND Nurse Practitioner Family

== ENCOUNTER 2017-04-22 20:17 | Inpatient (IN) ==
--- NOTE | 2017-04-22 21:31 | Emergency Department Note ---
Disposition Clinical Impression: Colitis Sepsis Qualifiers: Sepsis type: sepsis due to unspecified organism Qualified Code(s): A41.9 - Sepsis, unspecified organism Leukocytosis Qualifiers: Leukocytosis type: unspecified Qualified Code(s): D72.829 - Elevated white blood cell count, unspecified Disposition: Admitted As Inpatient Condition: Fair Referrals: NONE,PCP [Non-Partnered Physician] - Forms: Work/School Release, ED Satisfaction Letter Time of Disposition: 00:11 Abdominal Pain HPI - General Chief Complaint: ED Abdominal Pain Stated Complaint: ABD Pain / Diarrhea 2 days Time Seen by Provider: 04/22/17 20:19 Source: patient Mode of arrival: ambulatory Nursing Notes Reviewed: Yes Vital Signs Reviewed: Yes - History of Present Illness HPI Narrative: 41-year-old female history of bipolar, fibromyalgia, IBS, recently admitted for colitis in February 2017, presents with 2 days of nausea vomiting and diffuse abdominal pain. Patient states she is 8 out of 10 crampy pain in her lower abdomen she describes this as left-sided and right-sided, radiating across her abdomen. Patient states that she is been having diarrhea for last several days as well that she describes as brown and loose stool, denies any hematochezia or melena. Patient reports some dysuria, but denies hematuria. Patient is a history of a hysterectomy but no other abdominal surgeries. She states that this feels a lot like blossoms that she had colitis is not as bad, and they gave her antibiotics for that previously and she is admitted to the hospital for a few days. Patient denies chest pain, weight changes, She reports nausea, fever, chills. Pt Subjective Complaint: abdominal pain Onset (ago): day(s) Consistency: constant, intermittent Location: diffuse, suprapubic Pain Severity: moderate Pain Scale: 8 Quality: stabbing, aching Radiation: LLQ, RLQ Improves with: nothing Worsens with: nothing Associated symptoms: Reports: nausea. Denies: vomiting, diarrhea Treatments prior to arrival: none - Related Data Home Medications Medication Instructions Recorded Confirmed Duloxetine HCl [Cymbalta] 60 mg PO DAILY 04/25/15 02/21/17 Lurasidone HCl [Latuda] 120 mg PO DAILY 04/25/15 02/21/17 Trazodone HCl [TraZODone] 200 mg PO HS 04/25/15 02/21/17 Albuterol Sulfate [Proair Hfa] 1 puff IH TID 05/24/16 02/21/17 Cholecalciferol (Vitamin D3) 1,000 unit PO DAILY 05/24/16 02/21/17 [Vitamin D3] HydrOXYzine Pamoate [Vistaril] 50 mg PO BID 05/24/16 02/21/17 Levothyroxine Sodium [Tirosint] 50 mcg PO DAILY 05/24/16 02/21/17 Ondansetron ODT [Zofran ODT] 4 mg SL Q8H PRN 05/24/16 02/21/17 Prazosin HCl [Minipress] 5 mg PO HS 05/24/16 02/21/17 Propranolol HCl 20 mg PO HS 05/24/16 02/21/17 Ranitidine HCl [Zantac] 150 mg PO BID 05/24/16 02/21/17 Vitamin B Complex [B Complex] 1 tab PO DAILY 05/25/16 02/21/17 Albuterol Neb [Proventil Neb] 2.5 mg IH Q4HR 08/10/16 02/21/17 Eluxadoline [Viberzi] 150 mg PO BID 08/10/16 02/21/17 Montelukast [Singulair] 10 mg PO DAILY 02/21/17 02/21/17 Pantoprazole Sodium [Protonix] 40 mg PO BID 02/21/17 02/21/17 Previous Rx's Medication Instructions Recorded Fluconazole [Diflucan] 150 mg PO DAILY #1 tab 02/24/17 Fluticasone Propionate Nasal 50 mcg NS DAILY bottle 02/24/17 [Flonase] Nicotine Patch [Nicoderm] 21 mg TD DAILY #30 patch.td24 02/24/17 Nystatin [Nystatin Suspension] 100,000 units PO QID #120 ml 02/24/17 OxyCODONE/APAP 5/325 [Percocet 1 each PO Q8HR PRN #7 tablet 02/24/17 5/325 MG] Pregabalin [Lyrica] 150 mg PO BID capsule 02/24/17 metroNIDAZOLE [Flagyl] 500 mg PO BID 7 Days 02/24/17 HYDROcodone/Acet 5/325 mg [[place] 1 tab PO Q6H PRN #6 tab 07/19/17 5-325 mg] Allergies Allergy/AdvReac Type Severity Reaction Status Date / Time latex Allergy Rash Verified 04/06/17 11:00 naproxen [From Naprosyn] Allergy Swelling Verified 04/06/17 11:00 of Lip/Tongue/Throat bismuth subsalicylate AdvReac Vomiting Verified 04/06/17 11:00 [From Pepto-Bismol] caffeine AdvReac Vomiting Verified 04/06/17 11:00 codeine AdvReac Vomiting Verified 04/06/17 11:00 Review of Systems: 10 Point ROS was performed and negative except as per below or as documented in HPI. Constitutional: Denies: fever Eyes: Denies: eye pain ENT: Denies: nasal congestion CV: Denies: chest pain Resp: Denies: cough, hemoptysis GI: +abdominal pain, Nausea and diarrhea Denies: hematochezia Denies: dysuria, hematuria MSK: Denies: back pain, neck pain, extremity pain Skin: Denies: new rashes Neuro: Denies: paresthesias or weakness All systems ED: reviewed and negative except as stated. Abdominal Pain PMH - Past Medical History Medical history: Reports: arthritis, asthma, COPD, fibromyalgia, GERD, migraine , thyroid disease, other Female Surgical History: Reports: hysterectomy CHANNEL DEVELOPMENT DIRECTOR history: Reports: no CHANNEL DEVELOPMENT DIRECTOR history Psychiatric history: Reports: anxiety, bipolar, depression, PTSD, prior suicide attempt, previous psychiatric hospitalization - Social History Smoking status: Current every day smoker Alcohol use: Reports: none Drug use: Reports: none Physical Exam Constitutional: Tachycardic, temperature 99.9 appears very uncomfortable Eyes: PERRLA, sclera anicteric Neck: normal inspection, neck is supple Resp: CTA bilaterally, no resp distress CV: RRR, no m/g/r GI: normal inspection, soft abdomen, no guarding or rigidity, mild to moderate tenderness to palpation diffusely, negative Dominique sign. Hyperactive bowel sounds. Back: normal inspection, no tenderness to palpation Neuro: A&O3, CNII-XII grossly intact, ESQUIVEL MSK: no gross deformities, normal ROM UE and LE Skin: on limited exam, skin intact with no rashes or lesions - General Limitations: no limitations General appearance: alert, in no apparent distress Course Course Narrative: 41-year-old female with nausea, vomiting, and diffuse lower abdominal pain. She does not have a surgical belly with rebound or guarding, but I am concerned about her symptoms, she had a lactate of 4.0 previously and she is admitted a month ago, so will recheck lactate including CBC, BMP, hepatic panel, lipase, 2 L of fluids, CT abdomen and pelvis without contrast, antiemetics and - Reevaluation(s) Reevaluation #1: At 23:08 Sepsis identified possibly and suspected based on CT read. CT was read and shows inflammatory colitis, possibly infectious colitis, at this point concern for sepsis, patient meets criteria with leukocytosis and tachycardia, however she does not meet criteria for severe sepsis she is not elevated lactate , no changes in bilirubin or creatinine, no signs of end organ damage, and no hypotension. For that reason we did give her a 2 L bolus 30ml/kg, she did have a lactate, we added a blood cultures and will admit. Empiric Abx for intra- abdominal infection with Zosyn and Flagyl started after blood cultures. Time: 23:08 Reevaluation #2: Dr. Lopez accepts patient, she is hemodynamically stable at time of ED disposition. Time: 00:10 Vital Signs Temperature 99.9 F H 04/22/17 20:19 Pulse Rate 105 04/22/17 20:19 Respiratory Rate 20 04/22/17 20:19 Blood Pressure 97/63 04/22/17 20:19 O2 Sat by Pulse Oximetry 91 04/22/17 20:19 Temperature 99.9 F H 04/22/17 20:19 Pulse Rate 96 04/22/17 23:17 Respiratory Rate 16 04/22/17 23:17 Blood Pressure 109/69 04/22/17 23:17 O2 Sat by Pulse Oximetry 91 04/22/17 23:17 Oxygen Delivery Oxygen Delivery Room Air Abdominal Pain - Differential Diagnosis Differential Diagnosis: Likely: abdominal pain non-specific, constipation, diverticulosis, gastroenteritis, ischemic bowel - Medical Records Medical records reviewed: Yes I reviewed the patient's medical records. - Lab Data Lab results reviewed: Yes I reviewed the patient's lab results. Result diagrams: 04/22/17 21:28 04/22/17 21:28 Lab Results 04/22/17 04/22/17 04/22/17 Range/Units 21:28 21:28 21:28 WBC 20.7 H (4.3-11.1) K/mcL RBC 4.92 (3.82-4.97) M/mcL Hgb 14.0 (11.5-15.4) g/dL Hct 41.1 (35.3-44.9) % MCV 83.5 (83.0-100.0) fL MCH 28.5 (28.0-33.3) pg MCHC 34.1 (31.6-35.5) g/dL RDW 14.4 (11.5-14.5) % Plt Count 370 (140-400) K/mcL MPV 9.6 (9.4-12.4) fL Immature Gran % 0.6 (0-4) % Seg Neutrophils % 75.1 % Lymphocytes % 18.0 % Monocytes % 6.0 % Eosinophils % 0.1 % Basophils % 0.2 % Neutrophils # 15.6 H (1.6-8.9) K/mcL Lymphocytes # 3.7 (0.6-4.6) K/mcL Monocytes # 1.2 (0.0-1.3) K/mcL Eosinophils # 0.0 (0.0-0.6) K/mcL Basophils # 0.1 (0.0-0.2) K/mcL Sodium 133 L (136-145) mEq/L Potassium 3.5 (3.5-4.5) mEq/L Chloride 100 (98-109) mEq/L Carbon Dioxide 24 (19-29) mEq/L BUN 6 L (7-20) mg/dL Creatinine 0.72 (0.57-1.11) mg/dL Est GFR ( Amer) > 60 (> 60) Est GFR (Non-Af Amer) > 60 (> 60) BUN/Creatinine Ratio 8 (6-26) Glucose 102 H (70-99) mg/dL Calculated Osmolality 274 L (280-300) Lactic Acid 1.3 (0.5-2.2) mmol/L Calcium 9.1 (8.6-10.8) mg/dL Phosphorus 3.6 (2.3-4.7) mg/dL Magnesium 1.6 (1.6-2.6) mg/dL Total Bilirubin 0.3 (0.2-1.2) mg/dL Direct Bilirubin 0.1 (0.0-0.5) mg/dL Indirect Bilirubin 0.2 (0.0-1.2) mg/dL AST 13 (5-34) Units/L ALT 13 (0-55) Units/L Alkaline Phosphatase 106 (38-126) Units/L Troponin I (0-0.03) ng/mL Serum Total Protein 6.9 (6.0-8.3) g/dL Albumin 3.1 L (3.5-5.0) g/dL Globulin 3.8 H (2.4-3.5) g/dL Albumin/Globulin Ratio 0.8 L (1.1-2.2) Amylase 36 (25-125) Units/L Lipase 21 (8-78) Units/L Urine Color (Yellow) Urine Clarity (Clear) Urine pH (5.0-8.0) pH Units Ur Specific [place] (1.010-1.025) Urine Protein (Neg-Trace) mg/dL Urine Glucose (UA) (Normal) mg/dL Urine Ketones (Negative) mg/dL Urine Blood (Negative) Urine Nitrite (Negative) Urine Bilirubin (Negative) Urine Urobilinogen (Normal) mg/dL Ur Leukocyte Esterase (Negative) Urine Microscopic RBC (0-3) per hpf Urine Microscopic WBC (0-3) per hpf Ur Squamous Epith Cells (None-Few) per lpf Urine Bacteria (None-Few) per hpf Hyaline Casts (None-Few) per lpf Ur Culture Indicated? (NO) 04/22/17 04/22/17 Range/Units 21:28 21:40 WBC (4.3-11.1) K/mcL RBC (3.82-4.97) M/mcL Hgb (11.5-15.4) g/dL Hct (35.3-44.9) % MCV (83.0-100.0) fL MCH (28.0-33.3) pg MCHC (31.6-35.5) g/dL RDW (11.5-14.5) % Plt Count (140-400) K/mcL MPV (9.4-12.4) fL Immature Gran % (0-4) % Seg Neutrophils % % Lymphocytes % % Monocytes % % Eosinophils % % Basophils % % Neutrophils # (1.6-8.9) K/mcL Lymphocytes # (0.6-4.6) K/mcL Monocytes # (0.0-1.3) K/mcL Eosinophils # (0.0-0.6) K/mcL Basophils # (0.0-0.2) K/mcL Sodium (136-145) mEq/L Potassium (3.5-4.5) mEq/L Chloride (98-109) mEq/L Carbon Dioxide (19-29) mEq/L BUN (7-20) mg/dL Creatinine (0.57-1.11) mg/dL Est GFR ( Amer) (> 60) Est GFR (Non-Af Amer) (> 60) BUN/Creatinine Ratio (6-26) Glucose (70-99) mg/dL Calculated Osmolality (280-300) Lactic Acid (0.5-2.2) mmol/L Calcium (8.6-10.8) mg/dL Phosphorus (2.3-4.7) mg/dL Magnesium (1.6-2.6) mg/dL Total Bilirubin (0.2-1.2) mg/dL Direct Bilirubin (0.0-0.5) mg/dL Indirect Bilirubin (0.0-1.2) mg/dL AST (5-34) Units/L ALT (0-55) Units/L Alkaline Phosphatase (38-126) Units/L Troponin I 0.00 (0-0.03) ng/mL Serum Total Protein (6.0-8.3) g/dL Albumin (3.5-5.0) g/dL Globulin (2.4-3.5) g/dL Albumin/Globulin Ratio (1.1-2.2) Amylase (25-125) Units/L Lipase (8-78) Units/L Urine Color Yellow (Yellow) Urine Clarity Clear (Clear) Urine pH 6.0 (5.0-8.0) pH Units Ur Specific [place] 1.013 (1.010-1.025) Urine Protein Negative (Neg-Trace) mg/dL Urine Glucose (UA) Normal (Normal) mg/dL Urine Ketones Negative (Negative) mg/dL Urine Blood Moderate H (Negative) Urine Nitrite Negative (Negative) Urine Bilirubin Negative (Negative) Urine Urobilinogen Normal (Normal) mg/dL Ur Leukocyte Esterase Negative (Negative) Urine Microscopic RBC 5-15 H (0-3) per hpf Urine Microscopic WBC 3-5 H (0-3) per hpf Ur Squamous Epith Cells Many H (None-Few) per lpf Urine Bacteria None Seen (None-Few) per hpf Hyaline Casts None Seen (None-Few) per lpf Ur Culture Indicated? NO (NO) - Radiology Data Radiology results reviewed: Yes I reviewed the patient's radiology results. Abdomen/Pelvis CT 04/22/17 21:34 IMPRESSION: 1. There is mild increase wall thickening and inflammation involving the rectum, sigmoid colon and descending colon. Findings are nonspecific, and could represent an infectious or inflammatory colitis. 2. Normal appendix. 3. No nephrolithiasis or hydronephrosis. D/ / Trevon Roche MD / Trevon Roche MD Interpreting Provider: Trevon Roche MD - EKG Data EKG attestation: Yes I reviewed and interpreted this EKG. EKG shows normal: sinus rhythm Rate: normal Rhythm: NSR [place]/QRS: normal (Ventricular rate 80 bpm MS 146 QRS [address] seg elevations unchanged when compared to previous EKG) Interpretation: no acute changes - Core Measures AMI Core Measures Followed: No Attestation Statement - Attestation Attestation: I examined this patient and my medical decision-making was reviewed with the Resident Physician. I agree with the documented findings, disposition and treatment plan as described except to the extent set forth below. Patient to ED with abdominal pain vomiting diarrhea. Onset a couple of days ago. Patient is also to prior episodes she had for which she had to be admitted for IV antibiotics for colitis. She states is not quite as bad as it was that time. Feels warm but no measured fever. Exam shows her no distress with diffuse abdominal tenderness. Plan. Labs CT and symptom control. CT shows colitis. Patient meets sepsis criteria leukocytosis, colitis, and tachycardia. She is given broad-spectrum antibiotics. She is given 2 L of fluid. She is admitted to medicine.
[2017-04-22] MEDS ORDERED: Pantoprazole 40 MG VIAL IVP ONE (21:34)
[2017-04-22] MEDS ORDERED: Ondansetron 4 MG/2 ML VIAL IVP ONE (21:34)
[2017-04-22] MEDS ORDERED: 0.9 % Sodium Chloride 1,000 ML IVC ONE ×2 (21:34→22:06)
[2017-04-22 21:38] LABS: Basophils # 0.1 K/mcL (0.0-0.2); Basophils % 0.2 %; Eosinophils % 0.1 %; Hematocrit 41.1 % (35.3-44.9); Immature Granulocytes % 0.6 % (0-4); Lymphocytes # 3.7 K/mcL (0.6-4.6); Mean Corpuscular HGB Conc 34.1 g/dL (31.6-35.5); Mean Corpuscular Hemoglobin 28.5 pg (28.0-33.3); Mean Corpuscular Volume 83.5 fL (83.0-100.0); Mean Platelet Volume 9.6 fL (9.4-12.4); Monocytes # 1.2 K/mcL (0.0-1.3); Neutrophils # 15.6 K/mcL (1.6-8.9); Platelet Count 370 K/mcL (140-400); Red Blood Count 4.92 M/mcL (3.82-4.97); Red Cell Distribution Width 14.4 % (11.5-14.5); Segmented Neutrophils % 75.1 %
[2017-04-22 21:47] LABS: Bilirubin,Urine Negative (Negative); Blood,Urine Moderate (Negative); Clarity,Urine Clear (Clear); Color,Urine Yellow (Yellow); Glucose,Urine (UA) Normal (Normal); Ketones,Urine Negative (Negative); Leukocyte Esterase,Urine Negative (Negative); Nitrite,Urine Negative (Negative); Protein,Urine Negative (Neg-Trace); Specific Gravity,Urine 1.013 (1.010-1.025); Urobilinogen,Urine Normal (Normal)
[2017-04-22 21:50] LABS: Bacteria,Urine None Seen per hpf (None-Few); Hyaline Casts,Urine None Seen per lpf (None-Few); Squamous Epithelial Cell,Urine Many per lpf (None-Few)
[2017-04-22 21:51] LABS: Alanine Aminotransferase 13 Units/L (0-55); Albumin 3.1 g/dL (3.5-5.0); Albumin/Globulin Ratio 0.8 (1.1-2.2); Alkaline Phosphatase 106 Units/L (38-126); Amylase 36 Units/L (25-125); Aspartate Amino Transferase 13 Units/L (5-34); BUN/Creatinine Ratio 8 (6-26); Bilirubin,Direct 0.1 mg/dL (0.0-0.5); Bilirubin,Indirect 0.2 mg/dL (0.0-1.2); Bilirubin,Total 0.3 mg/dL (0.2-1.2); Blood Urea Nitrogen 6 mg/dL (7-20); Calcium 9.1 mg/dL (8.6-10.8); Carbon Dioxide 24 mEq/L (19-29); Chloride 100 mEq/L (98-109); Globulin 3.8 g/dL (2.4-3.5); Glucose 102 mg/dL (70-99); Lipase 21 Units/L (8-78); Osmolality,Calculated 274 (280-300); Potassium 3.5 mEq/L (3.5-4.5); Sodium 133 mEq/L (136-145); Total Protein 6.9 g/dL (6.0-8.3); eGFR For African Americans > 60 (> 60); eGFR For Non-African Americans > 60 (> 60)
[2017-04-22] MEDS ORDERED: *HR* HYDROmorphone (PF) 1 MG/ML SYRINGE IVP ONE (22:55)
[2017-04-22] MEDS ORDERED: MetroNIDAZOLE 500 MG/100 ML 500 MG/100 ML BAG IVPB ONE (23:25)
[2017-04-22] MEDS ORDERED: Piperacillin/Tazobactam 3.375 GM in D5% in Water (Mini-Bag+) 100 ML IVPB ONE (23:25)
[2017-04-22 23:59] LABS: Magnesium 1.6 mg/dL (1.6-2.6); Phosphorous 3.6 mg/dL (2.3-4.7)
[2017-04-23] MEDS ORDERED: Naloxone 0.4 MG/ML INJ IVP PRN (02:05)
--- NOTE | 2017-04-23 02:30 | Internal Med History&Physical ---
<Марина Carlos - Last Filed: 04/23/17 02:30> Date of Encounter: 04/23/17 Time of Encounter: 01:30 Assessment and Plan (1) Sepsis Current visit: Yes Status: Acute - 2 SIRS criteria (WBC 20.7 and HR 105). Lactic acid 1.8. - Likely secondary to colitis. - Pending blood cultures. - Continue antibiotics and hydration with IV NS. - Closely monitor. Qualifiers: Sepsis type: sepsis due to unspecified organism Qualified Code(s): A41.9 - Sepsis, unspecified organism (2) Colitis Current visit: Yes Status: Acute - CT A/P showed mild increase wall thickening and inflammation involving the rectum, sigmoid colon and descending colon, concerning of infectious or inflammatory colitis. - Colonoscopy on 02/17/16 found a ascending colon polyp, which has focal adenomatous changes on pathology. Random colon biopsy found mild chronic inflammation in lamina propria and lymphoid aggregates. - Stool culture and C. difficile toxin PCR had been ordered. - Will treat with Cipro and Flagyl. - Continue to monitor. (3) GERD (gastroesophageal reflux disease) Current visit: No Status: Chronic - Continue PPI. Qualifiers: Esophagitis presence: esophagitis presence not specified Qualified Code(s) : K21.9 - Gastro-esophageal reflux disease without esophagitis (4) Anxiety and depression Current visit: Yes Status: Acute - Will continue home psychiatric medications. (5) Tobacco abuse Current visit: No Status: Chronic - Smoking cessation counseling. - Nicotine patch. (6) DVT prophylaxis Current visit: No Status: Acute - SQ heparin. Internal Medicine - H&P: HPI Chief complaint: nausea, diarrhea and abdominal pain Admitted From: Emergency Dept Plans for Post Hospital Care: Home History of present illness: Ms. Wei is a 41 year old female with PMH of IBS, GERD, fibromyalgia, anxiety and depression. Patient presented with complaint of nausea, diarrhea and diffuse abdominal pain for 2 days. Patient reports having bowel movements up to 10 times a day and describes the abdominal pain as diffuse constant sharp pain aggravated by bowel movement and no noted alleviating factor. Other associated symptoms include chills, shortness of breath and productive cough with clear sputum. Patient was hospitalized for similar symptoms back in February 2017 and was treated with Flagyl and Levaquin at that time. Patient denies recent travel or sick contact. Past Med Surg Social Fam HX - Past Medical History Medical history: arthritis, asthma, COPD, fibromyalgia, GERD, migraine, thyroid disease, other Psychiatric history: anxiety, bipolar, depression, PTSD, prior suicide attempt, previous psychiatric hospitalization - Past Surgical History Surgical History: hysterectomy, other - Social History Smoking Status: Current every day smoker Smokeless Tobacco Status: No Alcohol use: none Drug use: none - Family History Father Adopted: No Family Member Ethnicity: Non- Living Status: Hx Family Cardiac Disorders: Yes (hyperlipidemia) Hx Family Respiratory Disorders: No Hx Family Cancer: Yes (Esophageal) Hx Family GI Disorders: No Hx Family Endocrine Disorder: No Hx Family Neuromuscular Disorders: No Hx Family Neurologic Disorders: Yes (anxiety) Hx Family HEENT Disorders: No Hx Family Autoimmune Disorders: No Mother Adopted: No Family Member Ethnicity: Non- Living Status: Still Living Hx Family Cardiac Disorders: No Hx Family Respiratory Disorders: Yes Hx Family Cancer: No Hx Family GI Disorders: Yes (Kidney stones, IBS) Hx Family Endocrine Disorder: No Hx Family Neuromuscular Disorders: No Hx Family Neurologic Disorders: Yes (Anxiety) Hx Family HEENT Disorders: No Hx Family Autoimmune Disorders: No Internal Medicine - H&P: Meds Duloxetine HCl [Cymbalta] 60 mg PO DAILY 04/25/15 [History] Lurasidone HCl [Latuda] 120 mg PO DAILY 04/25/15 [History] Trazodone HCl [TraZODone] 200 mg PO HS 04/25/15 [History] Albuterol Sulfate [Proair Hfa] 1 puff IH TID 05/24/16 [History] Cholecalciferol (Vitamin D3) [Vitamin D3] 1,000 unit PO DAILY 05/24/16 [History] HydrOXYzine Pamoate [Vistaril] 50 mg PO BID 05/24/16 [History] Levothyroxine Sodium [Tirosint] 50 mcg PO DAILY 05/24/16 [History] Ondansetron ODT [Zofran ODT] 4 mg SL Q8H PRN 05/24/16 [History] Prazosin HCl [Minipress] 5 mg PO HS 05/24/16 [History] Propranolol HCl 20 mg PO HS 05/24/16 [History] Ranitidine HCl [Zantac] 150 mg PO BID 05/24/16 [History] Vitamin B Complex [B Complex] 1 tab PO DAILY 05/25/16 [History] Albuterol Neb [Proventil Neb] 2.5 mg IH Q4HR 08/10/16 [History] Eluxadoline [Viberzi] 150 mg PO BID 08/10/16 [History] Montelukast [Singulair] 10 mg PO DAILY 02/21/17 [History] Pantoprazole Sodium [Protonix] 40 mg PO BID 02/21/17 [History] Fluconazole [Diflucan] 150 mg PO DAILY #1 tab 02/24/17 [Rx] Fluticasone Propionate Nasal [Flonase] 50 mcg NS DAILY bottle 02/24/17 [Rx] Nicotine Patch [Nicoderm] 21 mg TD DAILY #30 patch.td24 02/24/17 [Rx] Nystatin [Nystatin Suspension] 100,000 units PO QID #120 ml 02/24/17 [Rx] OxyCODONE/APAP 5/325 [Percocet 5/325 MG] 1 each PO Q8HR PRN #7 tablet 02/24/17 [ Rx] Pregabalin [Lyrica] 150 mg PO BID capsule 02/24/17 [Rx] metroNIDAZOLE [Flagyl] 500 mg PO BID 7 Days 02/24/17 [Rx] HYDROcodone/Acet 5/325 mg [[place] 5-325 mg] 1 tab PO Q6H PRN #6 tab 04/06/17 [Rx] Allergies latex Allergy (Verified 04/06/17 11:00) Rash naproxen [From Naprosyn] Allergy (Verified 04/06/17 11:00) Swelling of Lip/Tongue/Throat bismuth subsalicylate [From Pepto-Bismol] Adverse Reaction (Verified 04/06/17 11 :00) Vomiting caffeine Adverse Reaction (Verified 04/06/17 11:00) Vomiting codeine Adverse Reaction (Verified 04/06/17 11:00) Vomiting All Systems PM: A 10-system review of systems was performed and is negative for pertinent findings except as documented above in the HPI. - Constitutional Constitutional: anorexia, chills, no fever(s) - EENT Eyes: no change in vision Ears: no decreased hearing Nose, mouth and throat: no dysphagia, no odynophagia - Cardiovascular Cardiovascular ROS IM: edema, no chest pain, no syncope - Respiratory Respiratory: cough, dyspnea, no hemoptysis, no change in phlegm color - Gastrointestinal Gastrointestinal: as per HPI, abdominal pain, diarrhea, nausea, no hematochezia , no melena, no vomiting - Genitourinary Genitourinary: no difficulty urinating, no dysuria, no hematuria - Integumentary Integumentary IM: no pruritus, no rash - Neurological Neurological ROS: no focal weakness, no numbness, no tingling - Hematologic/Lymphatic Hematologic/Lymphatic: no easy bleeding, no easy bruising - Constitutional Vitals: Temp Pulse Resp BP Pulse Ox 99.9 F H 96 16 97/51 91 04/22/17 20:19 04/22/17 23:17 04/23/17 01:12 04/23/17 01:12 04/22/17 23:17 General appearance: Present: cooperative, A&O X 3, no acute distress - Head Head exam: Present: atraumatic, normocephalic - Eye Eye exam: Present: EOMI, PERRL, conjuntiva pink, sclera anicteric - Neck Neck exam general surgery: Present: supple, trachea midline. Absent: lymphadenopathy - Respiratory Respiratory exam: Present: CTAB. Absent: accessory muscle use, rales, rhonchi, wheezes - Cardiovascular Cardiovascular exam: Present: +S1, +S2, tachycardia. Absent: diastolic murmur, gallop, rubs, systolic murmur - GI/Abdominal GI/Abdominal exam: Present: normal bowel sounds, soft, tenderness (Diffuse), no peritoneal signs. Absent: distended - Extremities Exam Extremities exam: Present: pedal edema (Mild BLE edema), warm, radial pulses palpable and symetrical. Absent: calf tenderness, cyanotic - Neurological Exam Neurological exam: Present: CN II-XII intact, oriented X3, no focal deficits. Absent: pronater drift, facial droop, speech deficit - Skin Skin exam: Present: dry, intact, warm Internal Med - H&P Results - Labs CBC & Chem 7: 04/22/17 21:28 04/22/17 21:28 <Jose Cruz Gamboa - Last Filed: 04/23/17 06:01> Date of Encounter: 04/23/17 Internal Medicine - H&P: HPI History of present illness: Ms. Wei is a 41 year old female All Systems PM: A 10-system review of systems was performed and is negative for pertinent findings except as documented above in the HPI. - Constitutional Vitals: Temp Pulse Resp BP Pulse Ox 98.4 F 80 16 95/58 96 04/23/17 02:53 04/23/17 02:53 04/23/17 02:53 04/23/17 02:53 04/23/17 02:53 Internal Med - H&P Results - Labs CBC & Chem 7: 04/22/17 21:28 04/22/17 21:28 - Diagnostic Studies CT scan - abdomen Status: image reviewed by me - Attending Attestation I personally interviewed and examined this patient and my medical decision- making was reviewed with the Resident Physician. I agree with the documented findings, disposition and treatment plan as described. Jose Cruz Gamboa MD, MPH Hospitalist
[2017-04-23] MEDS: 0.9 % Sodium Chloride 1,000 ML IVC SCH ×2 (02:51→14:21)
[2017-04-23] MEDS: *HR* Heparin 5,000 UNIT/ML VIAL SQ SCH ×3 (06:03→21:28)
[2017-04-23] MEDS ORDERED: *HR* OxyCODONE/APAP 5/325 TABLET PO ONE ×3 (06:44→21:44)
[2017-04-23] MEDS: Ondansetron 4 MG/2 ML VIAL IVP PRN ×2 (07:13→18:01)
[2017-04-23 07:44] LABS: Adenovirus F 40/41 PCR Not detected (Not detect); Astrovirus PCR Not detected (Not detect); C.difficile Toxin A/B by PCR Not detected (Not detect); Campylobacter by PCR Not detected (Not detect); Cryptosporidium by PCR Not detected (Not detect); Cyclospora cayetanensis PCR Not detected (Not detect); E. coli O157 by PCR Not detected (Not detect); Entamoeba histolytica PCR Not detected (Not detect); Enteroaggregative E.coli(EAEC) Not detected (Not detect); Enteropathogenic E.coli(EPEC) Not detected (Not detect); Enterotoxigenic E.coli (ETEC) Not detected (Not detect); Giardia lamblia PCR Not detected (Not detect); Norovirus GI/GII PCR Not detected (Not detect); Plesiomonas shigelloides PCR Not detected (Not detect); Rotavirus A PCR Not detected (Not detect); Salmonella PCR Not detected (Not detect); Sapovirus PCR Not detected (Not detect); Shig/EnteroinvasiveE coli EIEC Not detected (Not detect); Shigalike tox-prod E coli STEC Not detected (Not detect); Vibrio PCR Not detected (Not detect); Vibrio cholerae PCR Not detected (Not detect); Yersinia enterocolitica PCR Not detected (Not detect)
[2017-04-23 07:54] LABS: BUN/Creatinine Ratio 7 (6-26); Calcium 8.6 mg/dL (8.6-10.8); Carbon Dioxide 24 mEq/L (19-29); Chloride 109 mEq/L (98-109); Glucose 109 mg/dL (70-99); Osmolality,Calculated 290 (280-300); Potassium 3.4 mEq/L (3.5-4.5); eGFR For African Americans > 60 (> 60); eGFR For Non-African Americans > 60 (> 60)
[2017-04-23 08:05] LABS: Basophils # 0.1 K/mcL (0.0-0.2); Basophils % 0.3 %; Eosinophils # 0.1 K/mcL (0.0-0.6); Eosinophils % 0.5 %; Hematocrit 38.1 % (35.3-44.9); Immature Granulocytes % 0.4 % (0-4); Lymphocytes # 4.5 K/mcL (0.6-4.6); Lymphocytes % 29.9 %; Mean Corpuscular HGB Conc 32.5 g/dL (31.6-35.5); Mean Corpuscular Hemoglobin 27.8 pg (28.0-33.3); Mean Corpuscular Volume 85.4 fL (83.0-100.0); Mean Platelet Volume 10.6 fL (9.4-12.4); Monocytes # 1.3 K/mcL (0.0-1.3); Monocytes % 8.5 %; Neutrophils # 9.1 K/mcL (1.6-8.9); Platelet Count 353 K/mcL (140-400); Red Blood Count 4.46 M/mcL (3.82-4.97); Red Cell Distribution Width 14.6 % (11.5-14.5); Segmented Neutrophils % 60.4 %
[2017-04-23 08:06] LABS: Blood Urea Nitrogen 5 mg/dL (7-20); Sodium 141 mEq/L (136-145)
[2017-04-23 08:14] LABS: Hemoglobin 12.4 g/dL (11.5-15.4)
[2017-04-23] MEDS: MetroNIDAZOLE 500 MG/100 ML 500 MG/100 ML BAG IVPB SCH ×3 (08:22→23:01)
[2017-04-23] MEDS: Nicotine 14 MG PATCH.TD24 TD SCH (08:27)
[2017-04-23] MEDS ORDERED: *HR* LORazepam 2 MG/ML VIAL IVP ONE (10:38)
[2017-04-23] MEDS: Pantoprazole 40 MG VIAL IVP SCH (11:13)
--- NOTE | 2017-04-23 13:48 | Event Note ---
Date of Encounter: 04/23/17 Time of Encounter: 13:45 Admitted overnight with ABD pain. Was found to be septic secondary to colitis. Seen and examined at bedside; says she feel about the same. Says she is nervous and is requesting valium. Medication list reviewed and valium recently stopped. Afebrile, WBC trending down. Cont IV ATB, fluids. Will add one time dose ativan. Clinically stable
[2017-04-23] MEDS: Nystatin POWDER 30 GM BOTTLE TP SCH (23:01)
[2017-04-23] MEDS: hydrOXYzine pamoate 25 MG CAPSULE PO PRN (23:01)
[2017-04-24] MEDS: 0.9 % Sodium Chloride 1,000 ML IVC SCH ×2 (03:43→15:12)
[2017-04-24] MEDS: Ondansetron 4 MG/2 ML VIAL IVP PRN ×2 (03:44→15:02)
[2017-04-24 04:13] LABS: Hematocrit 33.7 % (35.3-44.9); Mean Corpuscular HGB Conc 32.6 g/dL (31.6-35.5); Mean Corpuscular Hemoglobin 28.3 pg (28.0-33.3); Mean Corpuscular Volume 86.6 fL (83.0-100.0); Platelet Count 285 K/mcL (140-400); Red Blood Count 3.89 M/mcL (3.82-4.97); Red Cell Distribution Width 14.8 % (11.5-14.5)
[2017-04-24 04:35] LABS: Alanine Aminotransferase 10 Units/L (0-55); Albumin 2.6 g/dL (3.5-5.0); Albumin/Globulin Ratio 0.9 (1.1-2.2); Alkaline Phosphatase 81 Units/L (38-126); Aspartate Amino Transferase 10 Units/L (5-34); BUN/Creatinine Ratio 6 (6-26); Bilirubin,Total 0.3 mg/dL (0.2-1.2); Calcium 8.4 mg/dL (8.6-10.8); Carbon Dioxide 26 mEq/L (19-29); Chloride 110 mEq/L (98-109); Glucose 88 mg/dL (70-99); Osmolality,Calculated 290 (280-300); Potassium 3.6 mEq/L (3.5-4.5); Sodium 142 mEq/L (136-145); Total Protein 5.6 g/dL (6.0-8.3); eGFR For African Americans > 60 (> 60); eGFR For Non-African Americans > 60 (> 60)
[2017-04-24 04:37] LABS: Blood Urea Nitrogen 4 mg/dL (7-20)
[2017-04-24] MEDS: Acetaminophen 325 MG TABLET PO PRN ×2 (06:02→12:31)
[2017-04-24] MEDS: *HR* Heparin 5,000 UNIT/ML VIAL SQ SCH ×3 (06:02→20:11)
[2017-04-24] MEDS: Pregabalin 75 MG CAPSULE PO SCH ×2 (08:02→20:05)
[2017-04-24] MEDS: hydrOXYzine pamoate 25 MG CAPSULE PO PRN (08:02)
[2017-04-24] MEDS: Nystatin POWDER 30 GM BOTTLE TP SCH ×2 (08:06→20:08)
[2017-04-24] MEDS: Nicotine 14 MG PATCH.TD24 TD SCH (08:06)
[2017-04-24] MEDS: Pantoprazole 40 MG VIAL IVP SCH (08:07)
[2017-04-24] MEDS: MetroNIDAZOLE 500 MG/100 ML 500 MG/100 ML BAG IVPB SCH ×2 (08:10→15:03)
[2017-04-24] MEDS ORDERED: Famotidine 20 MG TABLET PO SCH (09:00)
[2017-04-24] MEDS: BuPROPion XL (24 HR) 150 MG TABLET PO SCH (12:29)
--- NOTE | 2017-04-24 13:44 | Internal Med Progress Note ---
Date of Encounter: 04/24/17 Time of Encounter: 13:42 - Assessment and plan (1) Sepsis Current Visit: Yes Status: Resolved Assessment and plan: Patient's vital signs are within normal limits and WBC has returned to normal at 10.0. Treating her colitis and anticipate discharge once tolerating PO. Qualifiers: Sepsis type: sepsis due to unspecified organism Qualified Code(s): A41.9 - Sepsis, unspecified organism (2) Colitis Current Visit: Yes Status: Acute Assessment and plan: IV fluids 0.9NS at 100mL/hr Flagyl and cipro IVPB advance diet as tolerated. (3) Vomiting and diarrhea Current Visit: Yes Status: Acute Assessment and plan: Secondary to acute colitis. IV fluids 0.9NS at 100mL/hr. Zofran PRN for nausea advance diet as tolerated. (4) GERD (gastroesophageal reflux disease) Current Visit: Yes Status: Chronic Assessment and plan: continue PPI Qualifiers: Esophagitis presence: esophagitis presence not specified Qualified Code(s) : K21.9 - Gastro-esophageal reflux disease without esophagitis (5) Anxiety and depression Current Visit: Yes Status: Acute Assessment and plan: Patient reporting nightmares and anxiety. She did not receive her home doses of cymbalta or trazodone yesterday. Will continue her home doses today and continue to monitor. (6) Smoking Current Visit: Yes Status: Acute Assessment and plan: smoking cessation and nicotine patch. (7) DVT prophylaxis Current Visit: Yes Status: Acute Assessment and plan: Heparin 5000u SQ TID - Subjective Interval history: Patient reporting feeling anxious and having nightmares overnight. She reports she has not been tolerating food yet and is still having diarrhea. Vital signs are within normal limits and WBC has normalized. Stool culture negative. Will continue her home psych medications, continue flagyl and cipro and advance diet as tolerating. - Constitutional Vitals: Temp Pulse Resp BP Pulse Ox 98.7 F 71 16 120/71 99 04/24/17 10:43 04/24/17 10:43 04/24/17 10:43 04/24/17 10:43 04/24/17 10:43 General appearance: Present: cooperative, A&O X 3, no acute distress - Head Head exam: Present: atraumatic, normocephalic - Eye Eye exam: Present: PERRL, conjuntiva pink, sclera anicteric Pupils: Present: PERRL - Neck Neck exam general surgery: Present: supple, trachea midline. Absent: lymphadenopathy - Respiratory Respiratory exam: Present: CTAB. Absent: accessory muscle use, rales, rhonchi, wheezes - Cardiovascular Cardiovascular exam: Present: RRR, +S1, +S2. Absent: diastolic murmur, gallop, rubs, systolic murmur - GI/Abdominal GI/Abdominal exam: Present: normal bowel sounds, soft, tenderness, no peritoneal signs. Absent: distended - Extremities Exam Extremities exam: Present: warm, radial pulses palpable and symetrical. Absent : calf tenderness, cyanotic, pedal edema - Neurological Exam Neurological exam: Present: CN II-XII intact, oriented X3, no focal deficits. Absent: facial droop, speech deficit - Skin Skin exam: Present: dry, intact Internal Medicine: Result - Labs CBC & Chem 7: 04/24/17 03:33 04/24/17 03:33 Labs: All Lab Results (24 Hours) 04/24/17 04/24/17 Range/Units 03:33 03:33 WBC 10.0 (4.3-11.1) K/mcL RBC 3.89 (3.82-4.97) M/mcL Hgb 11.0 L (11.5-15.4) g/dL Hct 33.7 L (35.3-44.9) % MCV 86.6 (83.0-100.0) fL MCH 28.3 (28.0-33.3) pg MCHC 32.6 (31.6-35.5) g/dL RDW 14.8 H (11.5-14.5) % Plt Count 285 (140-400) K/mcL MPV 10.0 (9.4-12.4) fL Sodium 142 (136-145) mEq/L Potassium 3.6 (3.5-4.5) mEq/L Chloride 110 H (98-109) mEq/L Carbon Dioxide 26 (19-29) mEq/L BUN 4 L (7-20) mg/dL Creatinine 0.62 (0.57-1.11) mg/dL Est GFR ( Amer) > 60 (> 60) Est GFR (Non-Af Amer) > 60 (> 60) BUN/Creatinine Ratio 6 (6-26) Glucose 88 (70-99) mg/dL Calculated Osmolality 290 (280-300) Calcium 8.4 L (8.6-10.8) mg/dL Total Bilirubin 0.3 (0.2-1.2) mg/dL AST 10 (5-34) Units/L ALT 10 (0-55) Units/L Alkaline Phosphatase 81 (38-126) Units/L Serum Total Protein 5.6 L (6.0-8.3) g/dL Albumin 2.6 L (3.5-5.0) g/dL Globulin 3.0 (2.4-3.5) g/dL Albumin/Globulin Ratio 0.9 L (1.1-2.2) - Diagnostic Studies CT scan - abdomen Additional comments: Abdomen/Pelvis CT 04/22/17 21:34 IMPRESSION: 1. There is mild increase wall thickening and inflammation involving the rectum, sigmoid colon and descending colon. Findings are nonspecific, and could represent an infectious or an inflammatory colitis. 2. Normal appendix. 3. No nephrolithiasis or hydronephrosis. D/ / 04/23/2017 05:02:40 Trevon Roche MD / karanyer Interpreting Provider: Trevon Roche MD Consult Discharge Plan - Plan Referrals: Yudelka Whittington MD [Primary Care Provider] -
[2017-04-24] MEDS: Baclofen 10 MG TABLET PO SCH ×2 (15:02→20:05)
[2017-04-24] MEDS: Nystatin SUSP 5 ML UD.LIQ PO SCH ×2 (17:26→20:07)
[2017-04-24] MEDS: Famotidine 20 MG TABLET PO SCH (20:05)
[2017-04-24] MEDS ORDERED: traZODone 50 MG TABLET PO SCH ×2 (21:00)
[2017-04-25] MEDS: MetroNIDAZOLE 500 MG/100 ML 500 MG/100 ML BAG IVPB SCH ×2 (00:22→08:01)
[2017-04-25] MEDS: hydrOXYzine pamoate 25 MG CAPSULE PO PRN (00:23)
[2017-04-25 01:53] LABS: Hematocrit 33.3 % (35.3-44.9); Hemoglobin 11.3 g/dL (11.5-15.4); Mean Corpuscular HGB Conc 33.9 g/dL (31.6-35.5); Mean Corpuscular Hemoglobin 28.7 pg (28.0-33.3); Mean Corpuscular Volume 84.5 fL (83.0-100.0); Mean Platelet Volume 10.5 fL (9.4-12.4); Platelet Count 285 K/mcL (140-400); Red Blood Count 3.94 M/mcL (3.82-4.97); Red Cell Distribution Width 14.6 % (11.5-14.5)
[2017-04-25 02:01] LABS: Alanine Aminotransferase 10 Units/L (0-55); Albumin 2.6 g/dL (3.5-5.0); Albumin/Globulin Ratio 0.9 (1.1-2.2); Alkaline Phosphatase 97 Units/L (38-126); Aspartate Amino Transferase 14 Units/L (5-34); BUN/Creatinine Ratio 6 (6-26); Bilirubin,Total 0.3 mg/dL (0.2-1.2); Blood Urea Nitrogen 4 mg/dL (7-20); Calcium 8.4 mg/dL (8.6-10.8); Carbon Dioxide 25 mEq/L (19-29); Chloride 109 mEq/L (98-109); Glucose 84 mg/dL (70-99); Osmolality,Calculated 286 (280-300); Potassium 3.3 mEq/L (3.5-4.5); Sodium 140 mEq/L (136-145); Total Protein 5.6 g/dL (6.0-8.3); eGFR For African Americans > 60 (> 60); eGFR For Non-African Americans > 60 (> 60)
[2017-04-25] MEDS: *HR* Heparin 5,000 UNIT/ML VIAL SQ SCH (05:27)
[2017-04-25] MEDS: Baclofen 10 MG TABLET PO SCH (08:01)
[2017-04-25] MEDS: Pregabalin 75 MG CAPSULE PO SCH (08:01)
[2017-04-25] MEDS: Nystatin SUSP 5 ML UD.LIQ PO SCH ×2 (08:01→13:09)
[2017-04-25] MEDS: Famotidine 20 MG TABLET PO SCH (08:02)
[2017-04-25] MEDS: Nicotine 14 MG PATCH.TD24 TD SCH (08:02)
[2017-04-25] MEDS: Pantoprazole 40 MG VIAL IVP SCH (08:02)
[2017-04-25] MEDS: BuPROPion XL (24 HR) 150 MG TABLET PO SCH (08:03)
[2017-04-25] MEDS: 0.9 % Sodium Chloride 1,000 ML IVC SCH (08:03)
[2017-04-25] MEDS ORDERED: Fluticasone Propionate Nasal 50 MCG/SPRAY BOTTLE NS SCH (09:00)
[2017-04-25] MEDS ORDERED: *HR* HYDROmorphone 2 MG/ML SYRINGE IVP ONE (10:05)
[2017-04-25] MEDS: Ondansetron 4 MG/2 ML VIAL IVP PRN (10:17)
[2017-04-25] MEDS: Nystatin POWDER 30 GM BOTTLE TP SCH (10:18)
--- NOTE | 2017-04-25 10:33 | Discharge Summary ---
<Arias Perez R - Last Filed: 04/25/17 11:43> Date of Encounter: 04/25/17 Time of Encounter: 09:20 - Discharge Diagnosis (1) Sepsis Priority: Primary Status: Resolved Qualifiers: Sepsis type: sepsis due to unspecified organism Qualified Code(s): A41.9 - Sepsis, unspecified organism (2) Colitis Priority: Secondary Status: Acute (3) GERD (gastroesophageal reflux disease) Priority: Secondary Status: Chronic Qualifiers: Esophagitis presence: esophagitis presence not specified Qualified Code(s) : K21.9 - Gastro-esophageal reflux disease without esophagitis (4) Anxiety and depression Priority: Secondary Status: Chronic - Discharge Medications Prescriptions: Fluconazole [Diflucan] 150 mg PO DAILY #3 tablet Levofloxacin [Levaquin] 750 mg PO DAILY #7 tablet metroNIDAZOLE [Flagyl] 500 mg PO TID #21 tablet Home Medications: Duloxetine HCl [Cymbalta] 30 mg PO DAILY 04/25/15 [History] Lurasidone HCl [Latuda] 120 mg PO DAILY 04/25/15 [History] Trazodone HCl [TraZODone] 300 mg PO HS 04/25/15 [History] Albuterol Sulfate [Proair Hfa] 1 puff IH TID 05/24/16 [History] Cholecalciferol (Vitamin D3) [Vitamin D3] 1,000 unit PO DAILY 05/24/16 [History] HydrOXYzine Pamoate [Vistaril] 50 mg PO TID 05/24/16 [History] Levothyroxine Sodium [Tirosint] 50 mcg PO DAILY 05/24/16 [History] Ondansetron ODT [Zofran ODT] 4 mg SL Q8H PRN 05/24/16 [History] Prazosin HCl [Minipress] 5 mg PO HS 05/24/16 [History] Propranolol HCl 20 mg PO HS 05/24/16 [History] Ranitidine HCl [Zantac] 150 mg PO BID 05/24/16 [History] Vitamin B Complex [B Complex] 1 tab PO DAILY 05/25/16 [History] Albuterol Neb [Proventil Neb] 2.5 mg IH Q4HR 08/10/16 [History] Montelukast [Singulair] 10 mg PO DAILY 02/21/17 [History] Pantoprazole Sodium [Protonix] 40 mg PO BID 02/21/17 [History] Fluticasone Propionate Nasal [Flonase] 50 mcg NS DAILY bottle 02/24/17 [Rx] Pregabalin [Lyrica] 150 mg PO BID capsule 02/24/17 [Rx] HYDROcodone/Acet 5/325 mg [[place] 5-325 mg] 1 tab PO Q6H PRN #6 tab 04/06/17 [Rx] Baclofen [Lioresal] 10 mg PO TID 04/23/17 [History] BuPROPion XL (24 HR) [Wellbutrin Xl] 150 mg PO DAILY 04/23/17 [History] Acetaminophen [Tylenol] 650 mg PO Q6HR PRN tab 04/25/17 [Rx] Fluconazole [Diflucan] 150 mg PO DAILY #3 tablet 04/25/17 [Rx] Levofloxacin [Levaquin] 750 mg PO DAILY #7 tablet 04/25/17 [Rx] metroNIDAZOLE [Flagyl] 500 mg PO TID #21 tablet 04/25/17 [Rx] Allergies/Adverse Reactions: Allergies latex Allergy (Verified 04/06/17 11:00) Rash naproxen [From Naprosyn] Allergy (Verified 04/06/17 11:00) Swelling of Lip/Tongue/Throat bismuth subsalicylate [From Pepto-Bismol] Adverse Reaction (Verified 04/06/17 11 :00) Vomiting caffeine Adverse Reaction (Verified 04/06/17 11:00) Vomiting codeine Adverse Reaction (Verified 04/06/17 11:00) Vomiting Date of admission: 04/24/17 17:13 Primary care physician: Yudelka Whittington Discharging clinician: Arias Perez Anticipated date of discharge: 04/25/17 - Patient Status Disposition: Home, Self-Care Condition: Fair Functional capacity at discharge: independent ambulation Overall status at discharge: patient is progressing back to baseline - Discharge Instructions Instructions: Metronidazole (By mouth), Fluconazole (By mouth), Levofloxacin ( By mouth), Infectious Colitis (GEN) Follow Up With: Yudelka Whittington MD [Primary Care Provider] - 04/29/17 10:45 am Stephen Gardiner MD [Partnered Physician] - (Web Request entered for Gastroenterology. Thank you) Additional Instructions: Follow-up with your primary care provider within 7 days Follow-up with gastroenterology rn occupational prescriptions at your pharmacy Take Levaquin once daily for 7 days Take Flagyl three times daily for 7 days Take Diflucan for 3 days Return or seek care if symptoms worsen - Diet and Activity Activity: increase activity as tolerated Diet: advance to your usual diet Interval History: Patient seen and examined. Reports she is improved from yesterday. Reports some diarrhea through the night. Some nausea and abdominal pain this morning, but no vomiting. Tolerating PO intake. Denies chest pain, dyspnea, hematochezia, melena , dysuria. Hospital course: Ms. Wei is a 41 year old female who presented with nausea, vomiting, diarrhea, and diffuse abdominal pain. She met SIRS criteria and blood cultures were drawn and preliminary results are negative. CT showed increased wall thickening and inflammation of rectum, sigmoid colon, and descending colon ( inflammation vs infectious). Stool PCR was negative. She was given Cipro and Flagyll and the fever and white blood cell count improved. - Time Spent with Patient Total time spent providing and/or coordinating discharge services: - Constitutional Vitals: Temp Pulse Resp BP Pulse Ox 98.7 F 69 16 107/64 97 04/25/17 07:01 04/25/17 07:01 04/25/17 07:01 04/25/17 07:01 04/25/17 07:25 General appearance: Present: cooperative, A&O X 3, no acute distress - Head Head exam: Present: atraumatic, normocephalic - Eye Eye exam: Present: sclera anicteric - Respiratory Respiratory exam: Present: CTAB. Absent: rales, rhonchi, wheezes - Cardiovascular Cardiovascular exam: Present: RRR, +S1, +S2. Absent: diastolic murmur, systolic murmur - GI/Abdominal GI/Abdominal exam: Present: normal bowel sounds, soft, tenderness (diffusely). Absent: distended, rigid - Extremities Exam Extremities exam: Present: warm, radial pulses palpable and symetrical. Absent : calf tenderness, joint swelling, pedal edema <Aris Mims - Last Filed: 04/25/17 18:20> Date of Encounter: 04/25/17 Date of admission: 04/24/17 17:13 Primary care physician: Yudelka Whittington [facility] course: Ms. Wei is a 41 year old female - Time Spent with Patient Total time spent providing and/or coordinating discharge services: - Constitutional Vitals: Temp Pulse Resp BP Pulse Ox 98.9 F 62 16 118/74 95 04/25/17 11:01 04/25/17 11:01 04/25/17 11:01 04/25/17 11:01 04/25/17 11:01 - Attending Attestation I examined this patient and my medical decision-making was reviewed with the Resident Physician, Dr Perez. I agree with the documented findings, disposition and treatment plan as described except to the extent set forth below. I have independently obtained history and examined the patient and my findings are summarized below: Patient reports that her nausea has improved, denies vomiting. Abdominal pain is controlled with oral pain medication. On exam abdomen is soft and nontender. Heart is regular. Plan: We will switch to oral Levaquin and Flagyl. Plan for discharge home today.
[2017-04-25 11:03] VITALS: BP 118/74
--- NOTE | 2017-04-25 15:09 | Electrocardiograph Report ---
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
== END 2017-04-25 14:19 | disposition home or self-care (01) | DRG 872 ==
LOC: EMEROO 20:17 → 3ANU 20:17 → SUATTDRO 04-24 17:13
PROVIDERS: ADMIT Internal Medicine; ATTEND Internal Medicine

== ENCOUNTER 2017-07-03 17:21 | Inpatient (IN) ==
[2017-07-03] MEDS ORDERED: Ondansetron 4 MG/2 ML VIAL IVP ONE (17:49)
[2017-07-03] MEDS ORDERED: 0.9 % Sodium Chloride 1,000 ML IVC ONE ×2 (17:49→20:21)
--- NOTE | 2017-07-03 17:53 | Emergency Department Note ---
Disposition Clinical Impression: Cellulitis Disposition: Admitted As Inpatient Condition: Good Referrals: Yudelka Whittington MD [Primary Care Provider] - Forms: ED Satisfaction Letter Time of Disposition: 20:48 Skin/Abscess/FB HPI Chief complaint: ED Skin/Abscess/Foreign Body Stated complaint: inflamed insision post gall bladder Time Seen by Provider: 07/03/17 17:39 Source: patient Mode of arrival: ambulatory Limitations: no limitations Nursing Notes Reviewed: Yes Vital Signs Reviewed: Yes HPI Narrative: Patient presents to the ED with the chief complaint of redness around her surgical incision and abdominal pain. Patient had a laparoscopic cholecystectomy performed by Dr. Leiva on 06/30 due to cholecystitis. States that she was discharged home 2 days ago without issue. She woke up this morning and noticed redness around her periumbilical incision. She complains of gradually increasing abdominal pain, nausea, subjective fever. She has also been having diarrhea which is nonbloody, nonbilious. States her Percocet helps with the pain in her abdomen but not the pain in her skin around the incision. States she has not had a bowel movement since discharge, so she took some laxative last night and has had diarrhea since. Home Medications Medication Instructions Recorded Confirmed Duloxetine HCl [Cymbalta] 30 mg PO DAILY 04/25/15 06/29/17 Lurasidone HCl [Latuda] 120 mg PO DAILY 04/25/15 06/29/17 Trazodone HCl [TraZODone] 300 mg PO HS 04/25/15 06/29/17 Albuterol Sulfate [Proair Hfa] 1 puff IH TID 05/24/16 06/29/17 Cholecalciferol (Vitamin D3) 1,000 unit PO DAILY 05/24/16 06/29/17 [Vitamin D3] HydrOXYzine Pamoate [Vistaril] 50 mg PO TID 05/24/16 06/29/17 Levothyroxine Sodium [Tirosint] 50 mcg PO DAILY 05/24/16 06/29/17 Prazosin HCl [Minipress] 5 mg PO HS 05/24/16 06/29/17 Propranolol HCl 20 mg PO HS 05/24/16 06/29/17 Ranitidine HCl [Zantac] 150 mg PO BID 05/24/16 06/29/17 Vitamin B Complex [B Complex] 1 tab PO DAILY 05/25/16 06/29/17 Albuterol Neb [Proventil Neb] 2.5 mg IH Q4HR 08/10/16 06/29/17 Montelukast [Singulair] 10 mg PO DAILY 02/21/17 06/29/17 Pantoprazole Sodium [Protonix] 40 mg PO BID 02/21/17 06/29/17 Baclofen [Lioresal] 10 mg PO TID 04/23/17 06/29/17 BuPROPion XL (24 HR) [Wellbutrin 150 mg PO DAILY 04/23/17 06/29/17 Xl] Dicyclomine [Bentyl] 20 mg PO TID 06/29/17 06/29/17 diazePAM [Valium] 5 mg PO DAILY 06/29/17 06/29/17 Previous Rx's Medication Instructions Recorded Pregabalin [Lyrica] 150 mg PO BID capsule 02/24/17 Acetaminophen [Tylenol] 650 mg PO Q6HR PRN tab 04/25/17 Docusate [Colace] 100 mg PO BID #30 capsule 07/01/17 OxyCODONE/APAP 10/325 [Percocet 1 each PO Q6HR PRN #28 tablet 07/01/17 10/325 MG] Allergies Allergy/AdvReac Type Severity Reaction Status Date / Time latex Allergy Rash Verified 07/03/17 17:33 naproxen [From Naprosyn] Allergy Swelling Verified 07/03/17 17:33 of Lip/Tongue/Throat aluminum hydroxide AdvReac Vomiting Verified 07/03/17 17:33 [From Mylanta] bismuth subsalicylate AdvReac Vomiting Verified 07/03/17 17:33 [From Pepto-Bismol] caffeine AdvReac Vomiting Verified 07/03/17 17:33 calcium carbonate AdvReac Vomiting Verified 07/03/17 17:33 [From Mylanta] codeine AdvReac Vomiting Verified 07/03/17 17:33 magnesium [From Mylanta] AdvReac Vomiting Verified 07/03/17 17:33 simethicone [From Mylanta] AdvReac Vomiting Verified 07/03/17 17:33 tramadol [From Ultram] AdvReac Nausea Verified 07/03/17 17:33 All systems ED: reviewed and negative except as stated. Constitutional: Reports: fever (subjective ) Cardiovascular: Denies: chest pain Respiratory: Denies: dyspnea Gastrointestinal: Reports: abdominal pain, nausea, diarrhea Genitourinary: Denies: dysuria Musculoskeletal: Denies: back pain Integumentary: Reports: as per HPI, rash Neurological: Denies: headache Endocrine: Reports: fatigue Past Medical History - Past Medical History Attestation: Yes The following information was validated with the patient. Source: patient Medical history: Reports: arthritis, asthma, COPD, fibromyalgia, GERD, migraine , thyroid disease, other Surgical history: Reports: hysterectomy (laproscopic ) Psychiatric history: Reports: anxiety, bipolar, depression, PTSD, prior suicide attempt, previous psychiatric hospitalization HEALTH PROGRAM MANAGER history: Reports: no HEALTH PROGRAM MANAGER history - Social History Smoking Status: Current every day smoker Smokeless Tobacco Status: No Alcohol use: Reports: none Drug use: Reports: none Physical Exam - General Limitations: no limitations General appearance: alert, in no apparent distress, other (appears uncomfortable ) - ENT ENT exam: normal exam, normal oropharynx, mucous membranes moist - Neck Neck exam: Present: normal inspection, full ROM, trachea midline - Chest Chest inspection: Present: normal inspection, symmetric chest wall rise - Respiratory Respiratory exam: Present: normal lung sounds bilaterally - Cardiovascular Cardiovascular exam: Present: regular rate, normal rhythm, normal heart sounds - Abdominal Exam Abdominal exam: Present: soft, tenderness, distention, guarding, hypoactive bowel sounds, incision (Laparoscopic incisions are clean and intact. The periumbilical incision does have a large area of erythema surrounding it. She is guarding diffusely with no rebound tenderness. Mild warmth.) - Extremities Exam Extremities exam: Present: normal inspection, full ROM. Absent: tenderness, pedal edema - Neurological Exam Neurological exam: Present: alert, oriented X3 - Psychiatric Psychiatric exam: Present: normal affect, normal mood - Skin Skin exam: Present: warm, dry, intact, rash. Absent: normal color Course Course Narrative: Patient presents to the ED with complaints of what appears to be a cellulitis around her surgical site. She is 3 days postop laparoscopic cholecystectomy. Patient has fairly significant abdominal tenderness and guarding, which is more than I would expect her to have 3 days postop. Concern over potential intra- abdominal abscess versus perforation. We will check labs and CT abdomen and pelvis with IV contrast to further evaluate. - Reevaluation(s) Reevaluation #1: Patient has an abdominal wall cellulitis. We will consult surgery and admitted to medicine. Vital Signs Temperature 98.4 F 07/03/17 17:33 Pulse Rate 95 07/03/17 17:33 Respiratory Rate 20 07/03/17 17:33 Blood Pressure 85/57 07/03/17 17:33 O2 Sat by Pulse Oximetry 94 07/03/17 17:33 Temperature 98.4 F 07/03/17 17:33 Pulse Rate 98 07/03/17 20:24 Respiratory Rate 12 07/03/17 20:24 Blood Pressure 90/60 07/03/17 20:24 O2 Sat by Pulse Oximetry 93 07/03/17 20:24 Oxygen Delivery Oxygen Delivery Nasal Cannula Skin/Abscess/Foreign Body - Lab Data Result diagrams: 07/03/17 18:10 07/03/17 18:10 Lab Results 07/03/17 07/03/17 07/03/17 Range/Units 18:10 18:10 18:10 WBC 15.8 H D (4.3-11.1) K/mcL RBC 4.01 (3.82-4.97) M/mcL Hgb 11.6 (11.5-15.4) g/dL Hct 34.5 L (35.3-44.9) % MCV 86.0 (83.0-100.0) fL MCH 28.9 (28.0-33.3) pg MCHC 33.6 (31.6-35.5) g/dL RDW 15.3 H (11.5-14.5) % Plt Count 314 (140-400) K/mcL MPV 10.5 (9.4-12.4) fL Immature Gran % 0.6 (0-4) % Seg Neutrophils % 66.3 % Lymphocytes % 18.2 % Monocytes % 10.9 % Eosinophils % 3.7 % Basophils % 0.3 % Neutrophils # 10.5 H (1.6-8.9) K/mcL Lymphocytes # 2.9 (0.6-4.6) K/mcL Monocytes # 1.7 H (0.0-1.3) K/mcL Eosinophils # 0.6 (0.0-0.6) K/mcL Basophils # 0.1 (0.0-0.2) K/mcL Sodium 138 (136-145) mEq/L Potassium 3.1 L (3.5-4.5) mEq/L Chloride 101 (98-109) mEq/L Carbon Dioxide 28 (19-29) mEq/L BUN 6 L (7-20) mg/dL Creatinine 0.73 (0.57-1.11) mg/dL Est GFR ( Amer) > 60 (> 60) Est GFR (Non-Af Amer) > 60 (> 60) BUN/Creatinine Ratio 8 (6-26) Glucose 103 H (70-99) mg/dL Calculated Osmolality 284 (280-300) Lactic Acid 1.4 (0.5-2.2) mmol/L Calcium 8.8 (8.6-10.8) mg/dL Total Bilirubin 0.2 (0.2-1.2) mg/dL Direct Bilirubin 0.1 (0.0-0.5) mg/dL Indirect Bilirubin 0.1 (0.0-1.2) mg/dL AST 16 (5-34) Units/L ALT 69 H (0-55) Units/L Alkaline Phosphatase 154 H (38-126) Units/L Serum Total Protein 6.4 (6.0-8.3) g/dL Albumin 2.7 L (3.5-5.0) g/dL Globulin 3.7 H (2.4-3.5) g/dL Albumin/Globulin Ratio 0.7 L (1.1-2.2) Lipase 15 (8-78) Units/L Urine Color (Yellow) Urine Clarity (Clear) Urine pH (5.0-8.0) pH Units Ur Specific [place] (1.010-1.025) Urine Protein (Neg-Trace) mg/dL Urine Glucose (UA) (Normal) mg/dL Urine Ketones (Negative) mg/dL Urine Blood (Negative) Urine Nitrite (Negative) Urine Bilirubin (Negative) Urine Urobilinogen (Normal) mg/dL Ur Leukocyte Esterase (Negative) Urine Microscopic RBC (0-3) per hpf Urine Microscopic WBC (0-3) per hpf Ur Squamous Epith Cells (None-Few) per lpf Urine Bacteria (None-Few) per hpf Hyaline Casts (None-Few) per lpf Ur Culture Indicated? (NO) Urine Test (Negative) 10/15/17 10/15/17 Range/Units 18:45 18:45 WBC (4.3-11.1) K/mcL RBC (3.82-4.97) M/mcL Hgb (11.5-15.4) g/dL Hct (35.3-44.9) % MCV (83.0-100.0) fL MCH (28.0-33.3) pg MCHC (31.6-35.5) g/dL RDW (11.5-14.5) % Plt Count (140-400) K/mcL MPV (9.4-12.4) fL Immature Gran % (0-4) % Seg Neutrophils % % Lymphocytes % % Monocytes % % Eosinophils % % Basophils % % Neutrophils # (1.6-8.9) K/mcL Lymphocytes # (0.6-4.6) K/mcL Monocytes # (0.0-1.3) K/mcL Eosinophils # (0.0-0.6) K/mcL Basophils # (0.0-0.2) K/mcL Sodium (136-145) mEq/L Potassium (3.5-4.5) mEq/L Chloride (98-109) mEq/L Carbon Dioxide (19-29) mEq/L BUN (7-20) mg/dL Creatinine (0.57-1.11) mg/dL Est GFR ( Amer) (> 60) Est GFR (Non-Af Amer) (> 60) BUN/Creatinine Ratio (6-26) Glucose (70-99) mg/dL Calculated Osmolality (280-300) Lactic Acid (0.5-2.2) mmol/L Calcium (8.6-10.8) mg/dL Total Bilirubin (0.2-1.2) mg/dL Direct Bilirubin (0.0-0.5) mg/dL Indirect Bilirubin (0.0-1.2) mg/dL AST (5-34) Units/L ALT (0-55) Units/L Alkaline Phosphatase (38-126) Units/L Serum Total Protein (6.0-8.3) g/dL Albumin (3.5-5.0) g/dL Globulin (2.4-3.5) g/dL Albumin/Globulin Ratio (1.1-2.2) Lipase (8-78) Units/L Urine Color Yellow (Yellow) Urine Clarity Cloudy A (Clear) Urine pH 6.0 (5.0-8.0) pH Units Ur Specific [place] 1.015 (1.010-1.025) Urine Protein Negative (Neg-Trace) mg/dL Urine Glucose (UA) Normal (Normal) mg/dL Urine Ketones Negative (Negative) mg/dL Urine Blood Moderate H (Negative) Urine Nitrite Negative (Negative) Urine Bilirubin Negative (Negative) Urine Urobilinogen Normal (Normal) mg/dL Ur Leukocyte Esterase Negative (Negative) Urine Microscopic RBC 5-15 H (0-3) per hpf Urine Microscopic WBC 0-3 (0-3) per hpf Ur Squamous Epith Cells Many H (None-Few) per lpf Urine Bacteria None Seen (None-Few) per hpf Hyaline Casts Few (None-Few) per lpf Ur Culture Indicated? NO (NO) Urine Test Negative (Negative)
--- NOTE | 2017-07-03 17:58 | Emergency Department Note ---
START Narrative - START START: I examined this patient and my medical decision-making was reviewed with the Resident Physician. I agree with the documented findings, disposition and treatment plan as described except to the extent set forth below. 41-year-old female presents emergency room for abdominal pain. She is postop day #3 status post laparoscopic cholecystectomy. She is having increasing abdominal pain as well as redness around the incision at the umbilicus. We will check lab work as well as a CT scan of the pelvis.
[2017-07-03 18:26] LABS: Basophils # 0.1 K/mcL (0.0-0.2); Basophils % 0.3 %; Eosinophils # 0.6 K/mcL (0.0-0.6); Eosinophils % 3.7 %; Hematocrit 34.5 % (35.3-44.9); Hemoglobin 11.6 g/dL (11.5-15.4); Immature Granulocytes % 0.6 % (0-4); Lymphocytes # 2.9 K/mcL (0.6-4.6); Lymphocytes % 18.2 %; Mean Corpuscular HGB Conc 33.6 g/dL (31.6-35.5); Mean Corpuscular Hemoglobin 28.9 pg (28.0-33.3); Mean Platelet Volume 10.5 fL (9.4-12.4); Monocytes # 1.7 K/mcL (0.0-1.3); Monocytes % 10.9 %; Neutrophils # 10.5 K/mcL (1.6-8.9); Platelet Count 314 K/mcL (140-400); Red Blood Count 4.01 M/mcL (3.82-4.97); Red Cell Distribution Width 15.3 % (11.5-14.5); Segmented Neutrophils % 66.3 %
[2017-07-03] MEDS ORDERED: *HR* HYDROmorphone (PF) 1 MG/ML SYRINGE IVP ONE (18:39)
[2017-07-03 18:50] LABS: Alanine Aminotransferase 69 Units/L (0-55); Albumin 2.7 g/dL (3.5-5.0); Albumin/Globulin Ratio 0.7 (1.1-2.2); Alkaline Phosphatase 154 Units/L (38-126); Aspartate Amino Transferase 16 Units/L (5-34); BUN/Creatinine Ratio 8 (6-26); Bilirubin,Direct 0.1 mg/dL (0.0-0.5); Bilirubin,Indirect 0.1 mg/dL (0.0-1.2); Bilirubin,Total 0.2 mg/dL (0.2-1.2); Blood Urea Nitrogen 6 mg/dL (7-20); Calcium 8.8 mg/dL (8.6-10.8); Carbon Dioxide 28 mEq/L (19-29); Chloride 101 mEq/L (98-109); Globulin 3.7 g/dL (2.4-3.5); Glucose 103 mg/dL (70-99); Lipase 15 Units/L (8-78); Osmolality,Calculated 284 (280-300); Potassium 3.1 mEq/L (3.5-4.5); Sodium 138 mEq/L (136-145); Total Protein 6.4 g/dL (6.0-8.3); eGFR For African Americans > 60 (> 60); eGFR For Non-African Americans > 60 (> 60)
[2017-07-03 18:54] LABS: Bilirubin,Urine Negative (Negative); Blood,Urine Moderate (Negative); Clarity,Urine Cloudy (Clear); Color,Urine Yellow (Yellow); Glucose,Urine (UA) Normal (Normal); Ketones,Urine Negative (Negative); Leukocyte Esterase,Urine Negative (Negative); Nitrite,Urine Negative (Negative); Protein,Urine Negative (Neg-Trace); Specific Gravity,Urine 1.015 (1.010-1.025); Urobilinogen,Urine Normal (Normal)
[2017-07-03 18:55] LABS: Bacteria,Urine None Seen per hpf (None-Few); Hyaline Casts,Urine Few per lpf (None-Few); Squamous Epithelial Cell,Urine Many per lpf (None-Few); WBC,Urine 0-3 per hpf (0-3)
[2017-07-03] MEDS ORDERED: Piperacillin/Tazobactam 4.5 GM in D5% in Water (Mini-Bag+) 100 ML IVPB ONE (20:14)
[2017-07-03] MEDS ORDERED: Vancomycin 1,000 MG in D5% in Water 250 ML IVPB ONE (20:14)
[2017-07-03] MEDS ORDERED: Naloxone 0.4 MG/ML INJ IVP PRN (21:53)
[2017-07-03 22:14] LABS: Magnesium 1.7 mg/dL (1.6-2.6)
--- NOTE | 2017-07-04 00:04 | Internal Med History&Physical ---
Date of Encounter: 07/04/17 Time of Encounter: 21:00 Assessment and Plan (1) Cellulitis Current visit: Yes Status: Acute Patient is 3 days postop status post cholecystectomy. She has redness and tenderness around periumbilical incision. No drainage noted 2 blood cultures have been obtained we will continue with vancomycin and Zosyn 3 surgery has been consult and 4 continue with IV fluids 5 Zofran as needed for nausea Qualifiers: Site of cellulitis: unspecified site Qualified Code(s): L03.90 - Cellulitis , unspecified (2) Bipolar disorder (manic depression) Current visit: No Status: Chronic Presently stable we will continue with home medications Qualifiers: Active/Remission status: remission status unspecified Qualified Code(s): F31.9 - Bipolar disorder, unspecified (3) Nicotine dependence with nicotine-induced disorder Current visit: No Status: Chronic Encourage patient to stop smoking nicotine patch as needed Qualifiers: Nicotine product type: cigarettes Qualified Code(s): F17.219 - Nicotine dependence, cigarettes, with unspecified nicotine-induced disorders (4) Hypokalemia Current visit: No Status: Acute Presently potassium 3.1 we will replace and recheck in a.m. (5) GERD (gastroesophageal reflux disease) Current visit: No Status: Chronic Continue with Protonix Qualifiers: Esophagitis presence: esophagitis presence not specified Qualified Code(s) : K21.9 - Gastro-esophageal reflux disease without esophagitis (6) DVT prophylaxis Current visit: No Status: Acute Lovenox subcutaneous (7) Hypothyroid Current visit: No Status: Chronic Continue with Synthroid Qualifiers: Hypothyroidism type: unspecified Qualified Code(s): E03.9 - Hypothyroidism , unspecified Internal Medicine - H&P: HPI Chief complaint: abd pain Admitted From: Emergency Dept Plans for Post Hospital Care: Home History of present illness: Ms. Wei is a 41 year old female past medical history of asthma COPD 5 myalgia GERD thyroid disease she is a smoker anxiety bipolar PTSD. Patient is postop day 3 status post laparoscopic cholecystectomy performed by Dr. Wells. She states that she was discharged home 2 days ago without any issues. She woke up this morning and noticed redness around her periumbilical incision. She has been experiencing increasing abdominal pain nausea and subjective fevers. She has had some diarrhea which she did take a laxative due to no BM since discharge. She presented to the ER above complaints. CT of abdomen pelvis obtained which was suggestive of cellulitis. She did have an elevated white count of 15 her lactate was 1.4. Blood cultures have been obtained she is given IV fluids initiated on vancomycin and Zosyn. Surgery was notified per ER and she has been admitted for further workup and evaluation. Presently patient appears to be hypotensive with systolic low 90s we will continue with IV fluids I did review this case with Dr. Messina who agrees with plan. Past Med Surg Social Fam HX - Past Medical History Medical history: arthritis, asthma, COPD, fibromyalgia, GERD, migraine, thyroid disease, other Psychiatric history: anxiety, bipolar, depression, PTSD, prior suicide attempt, previous psychiatric hospitalization - Past Surgical History Surgical History: hysterectomy (laproscopic ) - Social History Smoking Status: Current every day smoker Smokeless Tobacco Status: No Alcohol use: none Drug use: none - Family History Father Adopted: No Family Member Ethnicity: Non- Living Status: Hx Family Cardiac Disorders: Yes (hyperlipidemia) Hx Family Respiratory Disorders: No Hx Family Cancer: Yes (Esophageal) Hx Family GI Disorders: No Hx Family Endocrine Disorder: No Hx Family Neuromuscular Disorders: No Hx Family Neurologic Disorders: Yes (anxiety) Hx Family HEENT Disorders: No Hx Family Autoimmune Disorders: No Mother Adopted: No Family Member Ethnicity: Non- Living Status: Still Living Hx Family Cardiac Disorders: No Hx Family Respiratory Disorders: Yes Hx Family Cancer: No Hx Family GI Disorders: Yes (Kidney stones, IBS) Hx Family Endocrine Disorder: No Hx Family Neuromuscular Disorders: No Hx Family Neurologic Disorders: Yes (Anxiety) Hx Family HEENT Disorders: No Hx Family Autoimmune Disorders: No Internal Medicine - H&P: Meds Duloxetine HCl [Cymbalta] 30 mg PO DAILY 04/25/15 [History] Lurasidone HCl [Latuda] 120 mg PO DAILY 04/25/15 [History] Trazodone HCl [TraZODone] 300 mg PO HS 04/25/15 [History] Albuterol Sulfate [Proair Hfa] 1 puff IH TID 05/24/16 [History] Cholecalciferol (Vitamin D3) [Vitamin D3] 1,000 unit PO DAILY 05/24/16 [History] HydrOXYzine Pamoate [Vistaril] 50 mg PO TID 05/24/16 [History] Levothyroxine Sodium [Tirosint] 50 mcg PO DAILY 05/24/16 [History] Prazosin HCl [Minipress] 5 mg PO HS 05/24/16 [History] Propranolol HCl 20 mg PO HS 05/24/16 [History] Ranitidine HCl [Zantac] 150 mg PO BID 05/24/16 [History] Vitamin B Complex [B Complex] 1 tab PO DAILY 05/25/16 [History] Albuterol Neb [Proventil Neb] 2.5 mg IH Q4HR 08/10/16 [History] Montelukast [Singulair] 10 mg PO DAILY 02/21/17 [History] Pantoprazole Sodium [Protonix] 40 mg PO BID 02/21/17 [History] Pregabalin [Lyrica] 150 mg PO BID capsule 02/24/17 [Rx] Baclofen [Lioresal] 10 mg PO TID 04/23/17 [History] BuPROPion XL (24 HR) [Wellbutrin Xl] 150 mg PO DAILY 04/23/17 [History] Acetaminophen [Tylenol] 650 mg PO Q6HR PRN tab 04/25/17 [Rx] Dicyclomine [Bentyl] 20 mg PO TID 06/29/17 [History] diazePAM [Valium] 5 mg PO DAILY 06/29/17 [History] Docusate [Colace] 100 mg PO BID #30 capsule 07/01/17 [Rx] OxyCODONE/APAP 10/325 [Percocet 10/325 MG] 1 each PO Q6HR PRN #28 tablet [Rx] 3 Allergy/AdvReac Type Severity Reaction Status Date / Time latex Allergy Rash Verified 07/03/17 17:33 naproxen [From Naprosyn] Allergy Swelling Verified 07/03/17 17:33 of Lip/Tongue/Throat aluminum hydroxide AdvReac Vomiting Verified 07/03/17 17:33 [From Mylanta] bismuth subsalicylate AdvReac Vomiting Verified 07/03/17 17:33 [From Pepto-Bismol] caffeine AdvReac Vomiting Verified 07/03/17 17:33 calcium carbonate AdvReac Vomiting Verified 07/03/17 17:33 [From Mylanta] codeine AdvReac Vomiting Verified 07/03/17 17:33 magnesium [From Mylanta] AdvReac Vomiting Verified 07/03/17 17:33 simethicone [From Mylanta] AdvReac Vomiting Verified 07/03/17 17:33 tramadol [From Ultram] AdvReac Nausea Verified 07/03/17 17:33 All Systems PM: A 10-system review of systems was performed and is negative for pertinent findings except as documented above in the HPI. - Constitutional Constitutional: fever(s), no chills, no night sweats - EENT Eyes: no change in vision, no discharge, no pain, no photophobia - Cardiovascular Cardiovascular ROS IM: no chest pain, no diaphoresis, no dyspnea, no lightheadedness, no palpitations, no syncope - Respiratory Respiratory: no cough, no dyspnea, no wheezing, no excessive phlegm production - Gastrointestinal Gastrointestinal: abdominal pain, loose stools, no diarrhea, no hematemesis, no hematochezia, no melena, no nausea, no vomiting - Genitourinary Genitourinary: no change in urinary stream, no dysuria, no flank pain, no hematuria - Musculoskeletal Musculoskeletal ROS IM: no numbness, no tingling - Integumentary Integumentary IM: erythema - Neurological Neurological ROS: no confusion, no convulsions, no focal weakness, no numbness, no tingling, no tremor(s) - Hematologic/Lymphatic Hematologic/Lymphatic: no easy bruising - Constitutional Vitals: Temp Pulse Resp BP Pulse Ox 98.4 F 84 16 112/74 95 07/03/17 23:40 07/03/17 23:40 07/03/17 23:40 07/03/17 23:40 07/03/17 23:40 General appearance: Present: A&O X 3, answers questions appropriately - Head Head exam: Present: atraumatic, normocephalic - Eye Eye exam: Present: PERRL, conjuntiva pink, sclera anicteric Pupils: Present: PERRL - Neck Neck exam general surgery: Present: supple, trachea midline. Absent: lymphadenopathy - Respiratory Respiratory exam: Present: CTAB. Absent: accessory muscle use, rales, rhonchi, wheezes - Cardiovascular Cardiovascular exam: Present: RRR, +S1, +S2. Absent: diastolic murmur, gallop, rubs, systolic murmur - GI/Abdominal GI/Abdominal exam: Present: guarding, normal bowel sounds, soft, tenderness, no peritoneal signs. Absent: distended - Extremities Exam Extremities exam: Present: warm, radial pulses palpable and symmetrical. Absent : calf tenderness, cyanotic, pedal edema - Neurological Exam Neurological exam: Present: CN II-XII intact, oriented X3, no focal deficits. Absent: pronater drift, facial droop, speech deficit - Skin Skin exam: Present: dry, erythema, intact Internal Med - H&P Results - Labs CBC & Chem 7: 07/03/17 18:10 07/03/17 18:10 - Diagnostic Studies Other Images Additional comments: Abdomen/Pelvis CT 07/03/17 17:59 IMPRESSION: 1. Postsurgical changes of the anterior abdominal wall with mild subcutaneous stranding noted within the tissue surrounding the periumbilical region. While findings potentially may be postsurgical, recommend clinical correlation to exclude cellulitis. No organized drainable fluid collection identified. 2. Mild stranding in small amount of fluid as well as a single locule of gas identified in the gallbladder fossa, likely postsurgical. 3. Small right pleural effusion and associated atelectasis. D/ / Rajesh Quezada MD / Rajesh Quezada MD Interpreting Provider: Rajesh Quezada MD
[2017-07-04] MEDS: *HR* HYDROmorphone (PF) 1 MG/ML SYRINGE IVP PRN ×7 (00:36→23:20)
[2017-07-04] MEDS ORDERED: Albuterol 2.5 MG/3 ML NEBULIZER IH PRN (01:01)
[2017-07-04] MEDS: 0.9 % Sodium Chloride 1,000 ML IVC SCH ×2 (01:03→09:20)
[2017-07-04] MEDS: Ondansetron 4 MG/2 ML VIAL IVP PRN ×3 (02:14→21:44)
[2017-07-04] MEDS: Ipratropium/Albuterol Neb 3 ML IH SCH ×4 (03:55→22:34)
[2017-07-04] MEDS: Piperacillin/Tazobactam 3.375 GM in D5% in Water (Mini-Bag+) 100 ML IVPB SCH ×3 (05:08→23:17)
[2017-07-04 05:37] LABS: Basophils % 0.3 %; Eosinophils # 0.5 K/mcL (0.0-0.6); Eosinophils % 3.4 %; Hematocrit 32.7 % (35.3-44.9); Hemoglobin 10.8 g/dL (11.5-15.4); Immature Granulocytes % 0.6 % (0-4); Lymphocytes % 15.2 %; Mean Corpuscular Volume 84.7 fL (83.0-100.0); Mean Platelet Volume 10.6 fL (9.4-12.4); Monocytes # 1.4 K/mcL (0.0-1.3); Monocytes % 10.7 %; Neutrophils # 9.2 K/mcL (1.6-8.9); Platelet Count 306 K/mcL (140-400); Red Blood Count 3.86 M/mcL (3.82-4.97); Red Cell Distribution Width 15.4 % (11.5-14.5); Segmented Neutrophils % 69.8 %
[2017-07-04 05:49] LABS: BUN/Creatinine Ratio 3 (6-26); Calcium 8.5 mg/dL (8.6-10.8); Carbon Dioxide 27 mEq/L (19-29); Chloride 110 mEq/L (98-109); Glucose 107 mg/dL (70-99); Osmolality,Calculated 293 (280-300); Potassium 3.6 mEq/L (3.5-4.5); Sodium 143 mEq/L (136-145); eGFR For African Americans > 60 (> 60); eGFR For Non-African Americans > 60 (> 60)
[2017-07-04 05:53] LABS: Blood Urea Nitrogen 2 mg/dL (7-20)
--- NOTE | 2017-07-04 07:31 | General Surgery Consult Note ---
Date of Encounter: 07/04/17 Time of Encounter: 07:29 Assessment and Plan (1) Abdominal pain Current Visit: Yes Status: Acute 41F s/p lap coty POD #4 now with cellulitis around umbilical incision; no drainage; no fluctuance - diet as tolerated - cont IV abx until erythema improves - PO pain meds: recommend scheduled motrin and tylenol over PRN narcotics at present; - lovenox - start home meds Qualifiers: Abdominal location: periumbilical Qualified Code(s): R10.33 - Periumbilical pain (2) Leukocytosis Current Visit: Yes Status: Acute likely reactive to surgery; no abscess; repeat CBC in AM; cont abx Qualifiers: Leukocytosis type: other Qualified Code(s): D72.828 - Other elevated white blood cell count (3) Cellulitis Current Visit: Yes Status: Acute abx repeat cbc serial exams no acute surgery needed Qualifiers: Site of cellulitis: other site Qualified Code(s): L03.818 - Cellulitis of other sites History of Present Illness Consult date: 07/04/17 Reason for consult: other (cellulitis post op lap coty) History of present illness: 41F h/o depression, anxiety, bipolar, prior suicide ideation, PTSD who is POD # 4 s/p lap coty who presents with pain and redness around umbilical incision. no reports of fevers, chills, nausea, vomiting; she is able to tolerate a diet. however, due to the redness and persistent pain around umbilicus, she presents to [facility] for further evaluation. Surgery was consulted for management recommendations. Past Med Surg Social Fam HX - Past Medical History Medical history: arthritis, asthma, COPD, fibromyalgia, GERD, migraine, thyroid disease, other Psychiatric history: anxiety, bipolar, depression, PTSD, prior suicide attempt, previous psychiatric hospitalization - Past Surgical History Surgical History: cholecystectomy, hysterectomy - Social History Smoking Status: Current every day smoker Packs per day: 1 Smokeless Tobacco Status: No Alcohol use: none Drug use: none - Family History Father Adopted: No Family Member Ethnicity: Non- Living Status: Cause of : esophageal ca Hx Family Cardiac Disorders: Yes (hyperlipidemia) Hx Family Respiratory Disorders: No Hx Family Cancer: Yes (Esophageal) Hx Family GI Disorders: No Hx Family Endocrine Disorder: No Hx Family Neuromuscular Disorders: No Hx Family Neurologic Disorders: Yes (anxiety) Hx Family HEENT Disorders: No Hx Family Autoimmune Disorders: No Mother Adopted: No Family Member Ethnicity: Non- Living Status: Still Living Hx Family Cardiac Disorders: No Hx Family Respiratory Disorders: Yes Hx Family Cancer: No Hx Family GI Disorders: Yes (Kidney stones, IBS) Hx Family Endocrine Disorder: No Hx Family Neuromuscular Disorders: No Hx Family Neurologic Disorders: Yes (Anxiety) Hx Family HEENT Disorders: No Hx Family Autoimmune Disorders: No Medications and Allergies Duloxetine HCl [Cymbalta] 30 mg PO DAILY 04/25/15 [History] Lurasidone HCl [Latuda] 120 mg PO HS 04/25/15 [History] Trazodone HCl [TraZODone] 150 mg PO HS 04/25/15 [History] Albuterol Sulfate [Proair Hfa] 1 puff IH TID 05/24/16 [History] Cholecalciferol (Vitamin D3) [Vitamin D3] 1,000 unit PO DAILY 05/24/16 [History] HydrOXYzine Pamoate [Vistaril] 50 mg PO TID 05/24/16 [History] Levothyroxine Sodium [Tirosint] 50 mcg PO DAILY 05/24/16 [History] Prazosin HCl [Minipress] 5 mg PO HS 05/24/16 [History] Propranolol HCl 20 mg PO HS 05/24/16 [History] Ranitidine HCl [Zantac] 150 mg PO BID 05/24/16 [History] Vitamin B Complex [B Complex] 1 tab PO DAILY 05/25/16 [History] Albuterol Neb [Proventil Neb] 2.5 mg IH Q4HR PRN 08/10/16 [History] Montelukast [Singulair] 10 mg PO HS 02/21/17 [History] Pantoprazole Sodium [Protonix] 40 mg PO BID 02/21/17 [History] Pregabalin [Lyrica] 150 mg PO BID capsule 02/24/17 [Rx] Baclofen [Lioresal] 10 mg PO TID 04/23/17 [History] Acetaminophen [Tylenol] 650 mg PO Q6HR PRN tab 04/25/17 [Rx] Dicyclomine [Bentyl] 20 mg PO TID 06/29/17 [History] diazePAM [Valium] 5 mg PO DAILY 06/29/17 [History] OxyCODONE/APAP 10/325 [Percocet 10/325 MG] 1 each PO Q6HR PRN #28 tablet [Rx] BuPROPion XL (24 HR) [Wellbutrin XL] 150 mg PO DAILY 07/04/17 [History] 3 Allergy/AdvReac Type Severity Reaction Status Date / Time latex Allergy Rash Verified 07/03/17 17:33 naproxen [From Naprosyn] Allergy Swelling Verified 07/03/17 17:33 of Lip/Tongue/Throat aluminum hydroxide AdvReac Vomiting Verified 07/03/17 17:33 [From Mylanta] bismuth subsalicylate AdvReac Vomiting Verified 07/03/17 17:33 [From Pepto-Bismol] caffeine AdvReac Vomiting Verified 07/03/17 17:33 calcium carbonate AdvReac Vomiting Verified 07/03/17 17:33 [From Mylanta] codeine AdvReac Vomiting Verified 07/03/17 17:33 magnesium [From Mylanta] AdvReac Vomiting Verified 07/03/17 17:33 simethicone [From Mylanta] AdvReac Vomiting Verified 07/03/17 17:33 tramadol [From Ultram] AdvReac Nausea Verified 07/03/17 17:33 Review of Systems All systems PM: A 10-system review of systems was performed and is negative for pertinent findings except as documented above in the HPI. General Surgery Exam Initial Vital Signs Temp Pulse Resp BP Pulse Ox 98.4 F 95 20 85/57 94 07/03/17 17:33 07/03/17 17:33 07/03/17 17:33 07/03/17 17:33 07/03/17 17:33 - General physical appearance well developed, well nourished, no distress - Eyes other (no scleral icterus) - ENT normocephalic - Neck no lymphadectomy - Respiratory normal expansion, normal respiratory effort, clear to auscultation - Cardiovascular Cardiovascular exam: Present: RRR - Abdomen Abdomen general surgery: Present: soft, tender (at umbilical incision) Hernia: Present: none - Incision Incision: Present: red, clean and dry, intact, erythema ( no fluctuance appreciated; no drainage appreciated) - Integumentary Integumentary general surgery: Present: warm and dry - Neurologic Present: CN 2-12 grossly intact - Psychiatric Psychiatric general surgery: Present: A&Ox3 Exam Initial Vital Signs Temp Pulse Resp BP Pulse Ox 98.4 F 95 20 85/57 94 07/03/17 17:33 07/03/17 17:33 07/03/17 17:33 07/03/17 17:33 07/03/17 17:33 Results - Labs 07/04/17 05:23 07/04/17 05:23 Abnormal lab results WBC 13.2 K/mcL (4.3-11.1) H 07/04/17 05:23 Hgb 10.8 g/dL (11.5-15.4) L 07/04/17 05:23 Hct 32.7 % (35.3-44.9) L 07/04/17 05:23 RDW 15.4 % (11.5-14.5) H 07/04/17 05:23 Neutrophils # 9.2 K/mcL (1.6-8.9) H 07/04/17 05:23 Monocytes # 1.4 K/mcL (0.0-1.3) H 07/04/17 05:23 Chloride 110 mEq/L (98-109) H 07/04/17 05:23 BUN 2 mg/dL (7-20) L 07/04/17 05:23 BUN/Creatinine Ratio 3 (6-26) L 07/04/17 05:23 Glucose 107 mg/dL (70-99) H 07/04/17 05:23 Calcium 8.5 mg/dL (8.6-10.8) L 07/04/17 05:23 ALT 69 Units/L (0-55) H 07/03/17 18:10 Alkaline Phosphatase 154 Units/L (38-126) H 07/03/17 18:10 Albumin 2.7 g/dL (3.5-5.0) L 07/03/17 18:10 Globulin 3.7 g/dL (2.4-3.5) H 07/03/17 18:10 Albumin/Globulin Ratio 0.7 (1.1-2.2) L 07/03/17 18:10 Urine Clarity Cloudy (Clear) A 07/03/17 18:45 Urine Blood Moderate (Negative) H 07/03/17 18:45 Urine Microscopic RBC 5-15 per hpf (0-3) H 07/03/17 18:45 Ur Squamous Epith Cells Many per lpf (None-Few) H 07/03/17 18:45 Diabetes panel 07/04/17 Range/Units 05:23 Sodium 143 (136-145) mEq/L Potassium 3.6 (3.5-4.5) mEq/L Chloride 110 H (98-109) mEq/L Carbon Dioxide 27 (19-29) mEq/L BUN 2 L (7-20) mg/dL Creatinine 0.58 (0.57-1.11) mg/dL Glucose 107 H (70-99) mg/dL Calcium 8.5 L (8.6-10.8) mg/dL Calcium panel 07/04/17 Range/Units 05:23 Calcium 8.5 L (8.6-10.8) mg/dL Pituitary panel 07/04/17 Range/Units 05:23 Sodium 143 (136-145) mEq/L Potassium 3.6 (3.5-4.5) mEq/L Chloride 110 H (98-109) mEq/L Carbon Dioxide 27 (19-29) mEq/L BUN 2 L (7-20) mg/dL Creatinine 0.58 (0.57-1.11) mg/dL Glucose 107 H (70-99) mg/dL Calcium 8.5 L (8.6-10.8) mg/dL Adrenal panel 07/04/17 Range/Units 05:23 Sodium 143 (136-145) mEq/L Potassium 3.6 (3.5-4.5) mEq/L Chloride 110 H (98-109) mEq/L Carbon Dioxide 27 (19-29) mEq/L BUN 2 L (7-20) mg/dL Creatinine 0.58 (0.57-1.11) mg/dL Glucose 107 H (70-99) mg/dL Calcium 8.5 L (8.6-10.8) mg/dL All other labs normal. - Imaging CT scan - abdomen: report reviewed, image reviewed CT scan - pelvis: report reviewed, image reviewed (fat stranding along gall bladder fossa, small foci of air, likely post operative change; fat stranding along umbilicus; no bowel-skin fistula; no abscess or fluid collection) Consult Discharge Plan - Plan Referrals: Yudelka Whittington MD [Primary Care Provider] -
[2017-07-04] MEDS: Pregabalin 75 MG CAPSULE PO SCH ×2 (07:43→21:11)
[2017-07-04] MEDS: Vitamin B Complex/Vit C/Vit E 1 EACH TABLET PO SCH (07:43)
[2017-07-04] MEDS: *HR* Enoxaparin 40 MG/0.4 ML SYRINGE SQ SCH (07:43)
[2017-07-04] MEDS: Famotidine 20 MG TABLET PO SCH ×2 (07:44→21:10)
[2017-07-04] MEDS: Pantoprazole 40 MG VIAL IVP SCH (07:44)
[2017-07-04] MEDS: Cholecalciferol (D-3) 1,000 UNIT TABLET PO SCH (07:44)
[2017-07-04] MEDS ORDERED: Vancomycin 1,000 MG in D5% in Water 250 ML IVPB SCH (09:00)
[2017-07-04] MEDS: Vancomycin 1,250 MG in D5% in Water 250 ML IVPB SCH (10:57)
[2017-07-04] MEDS ORDERED: Aminoglycoside Consult 1 EACH MC ONE (12:06)
[2017-07-04] MEDS ORDERED: Acetaminophen 325 MG TABLET PO PRN (14:04)
--- NOTE | 2017-07-04 14:12 | Internal Med Progress Note ---
Date of Encounter: 07/04/17 Time of Encounter: 14:11 - Assessment and plan (1) Cellulitis Current Visit: Yes Status: Acute Assessment and plan: abdominal wall cellulitis POD #4 cholecystectomy continue empiric IV abx (Vancomycin and zosyn) surgery on board and consultation appreciated pain control Qualifiers: Site of cellulitis: other site Qualified Code(s): L03.818 - Cellulitis of other sites (2) Abdominal pain Current Visit: Yes Status: Acute Assessment and plan: as listed above Qualifiers: Abdominal location: periumbilical Qualified Code(s): R10.33 - Periumbilical pain (3) Anxiety and depression Current Visit: No Status: Chronic Assessment and plan: restarted patient's home medications (4) DVT prophylaxis Current Visit: No Status: Acute Assessment and plan: Lovenox SQ (5) Hypothyroid Current Visit: No Status: Chronic Assessment and plan: continue levothyroxine Qualifiers: Hypothyroidism type: unspecified Qualified Code(s): E03.9 - Hypothyroidism , unspecified (6) Tobacco abuse Current Visit: No Status: Chronic Assessment and plan: smoking cessation counseling provided nicotine supplementation provided - Subjective Interval history: Patient seen and examined at bedside. Resting in bed and reports of pain being better controlled but still requiring dilaudid frequently. tolerating PO intake well. reports of having history of anxiety and requesting her home anxiety medications - Constitutional Vitals: Temp Pulse Resp BP Pulse Ox 99.3 F 74 16 125/81 96 07/04/17 12:00 07/04/17 12:00 07/04/17 12:00 07/04/17 12:00 07/04/17 12:00 General appearance: Present: A&O X 3, answers questions appropriately - Head Head exam: Present: atraumatic, normocephalic - Eye Eye exam: Present: conjuntiva pink, sclera anicteric - Respiratory Respiratory exam: Present: CTAB. Absent: accessory muscle use, rales, rhonchi, wheezes - Cardiovascular Cardiovascular exam: Present: RRR, +S1, +S2. Absent: diastolic murmur, gallop, rubs, systolic murmur - GI/Abdominal GI/Abdominal exam: Present: normal bowel sounds, soft, tenderness (erythema around the umbilicus-surrounding the surgical site-tender to palpation), no peritoneal signs. Absent: distended - Extremities Exam Extremities exam: Present: warm, radial pulses palpable and symmetrical. Absent : calf tenderness, cyanotic, pedal edema - Neurological Exam Neurological exam: Present: alert, oriented X3 - Psychiatric Psychiatric exam: Present: normal affect, normal mood Internal Medicine: Result - Labs CBC & Chem 7: 07/04/17 05:23 07/04/17 05:23 Labs: Short CBC 07/04/17 Range/Units 05:23 WBC 13.2 H (4.3-11.1) K/mcL Hgb 10.8 L (11.5-15.4) g/dL Hct 32.7 L (35.3-44.9) % Plt Count 306 (140-400) K/mcL Neutrophils # 9.2 H (1.6-8.9) K/mcL BMP 07/04/17 05:23 Sodium 143 Potassium 3.6 Chloride 110 H Carbon Dioxide 27 BUN 2 L Creatinine 0.58 Glucose 107 H Calcium 8.5 L Consult Discharge Plan - Plan Referrals: Yudelka Whittington MD [Primary Care Provider] -
[2017-07-04] MEDS: hydrOXYzine pamoate 25 MG CAPSULE PO SCH ×2 (15:53→21:10)
[2017-07-04] MEDS: BuPROPion XL (24 HR) 150 MG TABLET PO SCH (15:54)
[2017-07-04] MEDS: diazePAM 5 MG TABLET PO SCH (15:54)
[2017-07-04] MEDS: Nicotine 21 MG PATCH.TD24 TD SCH (15:54)
[2017-07-04] MEDS ORDERED: traZODone 50 MG TABLET PO SCH (21:00)
[2017-07-04] MEDS: *HR* OxyCODONE/APAP 10/325 TABLET PO PRN (21:07)
[2017-07-05] MEDS: Vancomycin 1,250 MG in D5% in Water 250 ML IVPB SCH (00:19)
[2017-07-05] MEDS: *HR* OxyCODONE/APAP 10/325 TABLET PO PRN ×2 (03:32→09:14)
[2017-07-05] MEDS: Ipratropium/Albuterol Neb 3 ML IH SCH ×2 (04:33→10:52)
[2017-07-05 05:12] LABS: Basophils % 0.4 %; Eosinophils # 0.5 K/mcL (0.0-0.6); Eosinophils % 5.5 %; Hematocrit 30.7 % (35.3-44.9); Hemoglobin 10.2 g/dL (11.5-15.4); Immature Granulocytes % 0.4 % (0-4); Lymphocytes # 3.7 K/mcL (0.6-4.6); Lymphocytes % 38.5 %; Mean Corpuscular HGB Conc 33.2 g/dL (31.6-35.5); Mean Corpuscular Hemoglobin 28.1 pg (28.0-33.3); Mean Corpuscular Volume 84.6 fL (83.0-100.0); Mean Platelet Volume 10.9 fL (9.4-12.4); Monocytes # 1.5 K/mcL (0.0-1.3); Monocytes % 15.1 %; Neutrophils # 3.9 K/mcL (1.6-8.9); Platelet Count 329 K/mcL (140-400); Red Blood Count 3.63 M/mcL (3.82-4.97); Red Cell Distribution Width 15.5 % (11.5-14.5); Segmented Neutrophils % 40.1 %
[2017-07-05 05:26] LABS: BUN/Creatinine Ratio 6 (6-26); Calcium 8.6 mg/dL (8.6-10.8); Carbon Dioxide 28 mEq/L (19-29); Chloride 110 mEq/L (98-109); Glucose 89 mg/dL (70-99); Magnesium 1.7 mg/dL (1.6-2.6); Osmolality,Calculated 294 (280-300); Phosphorous 3.8 mg/dL (2.3-4.7); Potassium 3.1 mEq/L (3.5-4.5); Sodium 144 mEq/L (136-145); eGFR For African Americans > 60 (> 60); eGFR For Non-African Americans > 60 (> 60)
[2017-07-05 05:28] LABS: Blood Urea Nitrogen 4 mg/dL (7-20)
[2017-07-05] MEDS: Piperacillin/Tazobactam 3.375 GM in D5% in Water (Mini-Bag+) 100 ML IVPB SCH (06:54)
[2017-07-05] MEDS: *HR* Enoxaparin 40 MG/0.4 ML SYRINGE SQ SCH ×2 (06:55→06:57)
[2017-07-05] MEDS: Nicotine 21 MG PATCH.TD24 TD SCH (07:57)
[2017-07-05] MEDS: Famotidine 20 MG TABLET PO SCH (07:58)
[2017-07-05] MEDS: Pregabalin 75 MG CAPSULE PO SCH (07:58)
[2017-07-05] MEDS: Vitamin B Complex/Vit C/Vit E 1 EACH TABLET PO SCH (07:58)
[2017-07-05] MEDS: diazePAM 5 MG TABLET PO SCH (07:58)
[2017-07-05] MEDS: Cholecalciferol (D-3) 1,000 UNIT TABLET PO SCH (07:58)
[2017-07-05] MEDS: Pantoprazole 40 MG VIAL IVP SCH (07:58)
[2017-07-05] MEDS: BuPROPion XL (24 HR) 150 MG TABLET PO SCH (07:58)
[2017-07-05] MEDS: hydrOXYzine pamoate 25 MG CAPSULE PO SCH (07:58)
--- NOTE | 2017-07-05 09:08 | General Surgery Progress Note ---
Date of Encounter: 07/05/17 Time of Encounter: 09:06 - Assessment and Plan (1) Abdominal pain Current Visit: Yes Status: Acute 41F s/p lap coty POD #5 now with cellulitis around umbilical incision; no drainage; no fluctuance -transition to PO abx: cont with 7 days PO abx; recommend bactrim - cont reg diet - only PO pain meds -d/c with plans to follow up in clinic next week Qualifiers: Abdominal location: periumbilical Qualified Code(s): R10.33 - Periumbilical pain (2) Leukocytosis Current Visit: Yes Status: Acute resolved; Qualifiers: Leukocytosis type: other Qualified Code(s): D72.828 - Other elevated white blood cell count (3) Cellulitis Current Visit: Yes Status: Acute PO abx follow up in clinic next week Qualifiers: Site of cellulitis: other site Qualified Code(s): L03.818 - Cellulitis of other sites Subjective Patient reports: no new complaints, feels better, still having pain, tolerating a regular diet, voiding w/o difficulty Objective Vital Signs - Last 8 Hours Temp Pulse Resp BP Pulse Ox 07/05/17 07:16 98.0 F 74 15 129/85 92 07/05/17 03:56 98.1 F 63 17 103/67 97 Intake and Output 07/04/17 07/05/17 07/05/17 23:59 07:59 15:59 Intake Total 440 / 440 350 / 350 Output Total 450 / 450 Balance -10 / -10 350 / 350 Intake: IV Fluids 100 / 100 350 / 350 Zosyn 3.375 GM In Dextrose 5% ( 100 / 100 100 / 100 Minibag+) 100 ML 100 ML @ 25 mls/hr IVPB Q8H [facility] Rx#: [id number] Vancocin 1,250 MG In Dextrose 5 250 / 250 % 250 ML @ 166.67 mls/hr IVPB Q12H [facility] Rx#:[id number] Oral 340 / 340 Output: Urine 450 / 450 Other: Meal Dinner Percent of Meal Consumed 60% Weight 77.3 kg Patient Weight 07/05/17 23:59 Weight 77.3 kg - General physical appearance well developed, well nourished, no distress - Eyes other (no scleral icterus) - Respiratory normal expansion, normal respiratory effort - Cardiovascular Cardiovascular exam: Present: RRR - Abdomen Abdomen: Present: soft, tender (at umbilical incision; no fluctuance nor drainage appreciated) - Incision Incision: Present: clean and dry, intact, erythema - Neurologic CN 2-12 grossly intact - Labs 07/05/17 04:26 07/05/17 04:26 Diabetes panel 07/05/17 Range/Units 04:26 Sodium 144 (136-145) mEq/L Potassium 3.1 L (3.5-4.5) mEq/L Chloride 110 H (98-109) mEq/L Carbon Dioxide 28 (19-29) mEq/L BUN 4 L (7-20) mg/dL Creatinine 0.69 (0.57-1.11) mg/dL Glucose 89 (70-99) mg/dL Calcium 8.6 (8.6-10.8) mg/dL Calcium panel 07/05/17 Range/Units 04:26 Calcium 8.6 (8.6-10.8) mg/dL Phosphorus 3.8 (2.3-4.7) mg/dL Pituitary panel 07/05/17 Range/Units 04:26 Sodium 144 (136-145) mEq/L Potassium 3.1 L (3.5-4.5) mEq/L Chloride 110 H (98-109) mEq/L Carbon Dioxide 28 (19-29) mEq/L BUN 4 L (7-20) mg/dL Creatinine 0.69 (0.57-1.11) mg/dL Glucose 89 (70-99) mg/dL Calcium 8.6 (8.6-10.8) mg/dL Adrenal panel 07/05/17 Range/Units 04:26 Sodium 144 (136-145) mEq/L Potassium 3.1 L (3.5-4.5) mEq/L Chloride 110 H (98-109) mEq/L Carbon Dioxide 28 (19-29) mEq/L BUN 4 L (7-20) mg/dL Creatinine 0.69 (0.57-1.11) mg/dL Glucose 89 (70-99) mg/dL Calcium 8.6 (8.6-10.8) mg/dL Consult Discharge Plan - Plan Referrals: Yudelka Whittington MD [Primary Care Provider] -
--- NOTE | 2017-07-05 11:07 | Discharge Summary ---
Date of Encounter: 07/05/17 Time of Encounter: 11:04 - Discharge Diagnosis (1) Cellulitis Priority: Primary Status: Acute Qualifiers: Site of cellulitis: other site Qualified Code(s): L03.818 - Cellulitis of other sites (2) S/P cholecystectomy Priority: Secondary Status: Acute (3) Bipolar disorder (manic depression) Priority: Secondary Status: Chronic Qualifiers: Active/Remission status: remission status unspecified Qualified Code(s): F31.9 - Bipolar disorder, unspecified (4) Tobacco abuse Priority: Secondary Status: Chronic (5) GERD (gastroesophageal reflux disease) Priority: Secondary Status: Chronic Qualifiers: Esophagitis presence: esophagitis presence not specified Qualified Code(s) : K21.9 - Gastro-esophageal reflux disease without esophagitis (6) Hypothyroid Priority: Secondary Status: Chronic Qualifiers: Hypothyroidism type: unspecified Qualified Code(s): E03.9 - Hypothyroidism , unspecified - Discharge Medications Prescriptions: OxyCODONE/APAP 10/325 [Percocet 10/325 MG] 1 each PO Q6HR PRN #15 tablet PRN Reason: Pain Nicotine Patch [Nicoderm] 21 mg TD DAILY #30 patch.td24 Sulfamethoxazole/Trimeth DS [Bactrim DS] 1 each PO BID #14 tablet Home Medications: Duloxetine HCl [Cymbalta] 30 mg PO DAILY 04/25/15 [History] Lurasidone HCl [Latuda] 120 mg PO HS 04/25/15 [History] Trazodone HCl [TraZODone] 150 mg PO HS 04/25/15 [History] Albuterol Sulfate [Proair Hfa] 1 puff IH TID 05/24/16 [History] Cholecalciferol (Vitamin D3) [Vitamin D3] 1,000 unit PO DAILY 05/24/16 [History] HydrOXYzine Pamoate [Vistaril] 50 mg PO TID 05/24/16 [History] Levothyroxine Sodium [Tirosint] 50 mcg PO DAILY 05/24/16 [History] Prazosin HCl [Minipress] 5 mg PO HS 05/24/16 [History] Propranolol HCl 20 mg PO HS 05/24/16 [History] Ranitidine HCl [Zantac] 150 mg PO BID 05/24/16 [History] Vitamin B Complex [B Complex] 1 tab PO DAILY 05/25/16 [History] Albuterol Neb [Proventil Neb] 2.5 mg IH Q4HR PRN 08/10/16 [History] Montelukast [Singulair] 10 mg PO HS 02/21/17 [History] Pantoprazole Sodium [Protonix] 40 mg PO BID 02/21/17 [History] Pregabalin [Lyrica] 150 mg PO BID capsule 02/24/17 [Rx] Baclofen [Lioresal] 10 mg PO TID 04/23/17 [History] Acetaminophen [Tylenol] 650 mg PO Q6HR PRN tab 04/25/17 [Rx] Dicyclomine [Bentyl] 20 mg PO TID 06/29/17 [History] diazePAM [Valium] 5 mg PO DAILY 06/29/17 [History] BuPROPion XL (24 HR) [Wellbutrin Xl] 150 mg PO DAILY 07/04/17 [History] Nicotine Patch [Nicoderm] 21 mg TD DAILY #30 patch.td24 07/05/17 [Rx] OxyCODONE/APAP 10/325 [Percocet 10/325 MG] 1 each PO Q6HR PRN #15 tablet [Rx] Sulfamethoxazole/Trimeth DS [Bactrim DS] 1 each PO BID #14 tablet 07/05/17 [Rx] Allergies/Adverse Reactions: 3 Allergy/AdvReac Type Severity Reaction Status Date / Time latex Allergy Rash Verified 07/03/17 17:33 naproxen [From Naprosyn] Allergy Swelling Verified 07/03/17 17:33 of Lip/Tongue/Throat aluminum hydroxide AdvReac Vomiting Verified 07/03/17 17:33 [From Mylanta] bismuth subsalicylate AdvReac Vomiting Verified 07/03/17 17:33 [From Pepto-Bismol] caffeine AdvReac Vomiting Verified 07/03/17 17:33 calcium carbonate AdvReac Vomiting Verified 07/03/17 17:33 [From Mylanta] codeine AdvReac Vomiting Verified 07/03/17 17:33 magnesium [From Mylanta] AdvReac Vomiting Verified 07/03/17 17:33 simethicone [From Mylanta] AdvReac Vomiting Verified 07/03/17 17:33 tramadol [From Ultram] AdvReac Nausea Verified 07/03/17 17:33 Date of admission: 07/03/17 22:04 Primary care physician: Yudelka Whittington - Patient Status Disposition: Home, Self-Care Condition: Good Overall status at discharge: patient is back to baseline - Discharge Instructions Follow Up With: Yudelka Whittington MD [Primary Care Provider] - Jorge Leiva MD [Non-Partnered Physician] - Additional Instructions: Please f/u with PCP in one week f/u with Surgery Dr. Leiva in 1 week - Diet and Activity Activity: increase activity as tolerated Diet: advance to your usual diet Hospital course: Ms. Wei is a 41 year old female past medical history of asthma COPD, fibromyalgia, GERD thyroid disease, chronic smoker, anxiety, bipolar and PTSD who recently had lap cholecystectomy 3 days prior to this hospitalization was resented to ER on postop day 3 with worsening redness and abdominal pain around her periumbilical incision. She has been experiencing increasing abdominal pain nausea and subjective fevers. Pt was admitted here for abdominal wall cellulites around the recent surgical incision area. CT of abd did not show any drainable fluid collection. Pt was started on empirical abx with Zosyn and Vancomycin. She was also followed by surgery Dr. Leiva. Her cellulites improving now, Surgery recommend to switch to PO abx and ok to d/c home today. She is tolerating pO intake well, her WBC also improved, down to 9.6 today. So will d/c her home in stable condition with PO Bactrim DS for 7 days. Her blood cx no growth so far. - Time Spent with Patient Total time spent providing and/or coordinating discharge services: - Constitutional Vitals: Temp Pulse Resp BP Pulse Ox 98.0 F 74 15 129/85 92 07/05/17 07:16 07/05/17 07:16 07/05/17 07:16 07/05/17 07:16 07/05/17 07:16 General appearance: Present: A&O X 3, answers questions appropriately - Head Head exam: Present: atraumatic, normal inspection - Respiratory Respiratory exam: Present: CTAB. Absent: accessory muscle use, rales, rhonchi, wheezes - Cardiovascular Cardiovascular exam: Present: RRR, +S1, +S2. Absent: diastolic murmur, gallop, rubs, systolic murmur - GI/Abdominal GI/Abdominal exam: Present: normal bowel sounds, soft. Absent: rebound, rigid Additional comments: mild erythema over hiral umbilical region around the surgical incision area. No active drainage / discharge noticed. Mild tenderness + - Extremities Exam Extremities exam: Absent: calf tenderness, pedal edema, tenderness - Back Exam Back exam: Absent: CVA tenderness (L), CVA tenderness (R) - Psychiatric Psychiatric exam: Present: normal affect, normal mood
[2017-07-05 11:49] VITALS: BP 130/84
== END 2017-07-05 12:07 | disposition home or self-care (01) | DRG 920 ==
LOC: EMEROO 17:21 → 3NENU 17:21 → SUATTDRO 22:03 → 3NENU 22:27
PROVIDERS: ADMIT Internal Medicine; ATTEND Family Medicine

== ENCOUNTER 2018-10-21 23:58 | Inpatient (IN) ==
[2018-10-22] MEDS ORDERED: GI Cocktail 40 ML EACH PO ONE (01:11)
[2018-10-22] MEDS ORDERED: Ondansetron 4 MG/2 ML VIAL IVP ONE ×2 (01:11→03:00)
[2018-10-22] MEDS ORDERED: 0.9 % Sodium Chloride 1,000 ML IVC ONE (01:11)
[2018-10-22] MEDS ORDERED: Isovue-370 500 ML BOTTLE IVP ONE (01:12)
[2018-10-22 01:36] LABS: Basophils # 0.1 K/mcL (0.0-0.2); Basophils % 0.4 %; Eosinophils % 0.3 %; Hematocrit 39.2 % (35.3-44.9); Hemoglobin 13.4 g/dL (11.5-15.4); Immature Granulocytes % 0.7 % (0-4); Lymphocytes # 6.7 K/mcL (0.6-4.6); Lymphocytes % 42.7 %; Mean Corpuscular HGB Conc 34.2 g/dL (31.6-35.5); Mean Corpuscular Hemoglobin 28.6 pg (28.0-33.3); Mean Corpuscular Volume 83.8 fL (83.0-100.0); Mean Platelet Volume 9.5 fL (9.4-12.4); Monocytes # 1.4 K/mcL (0.0-1.3); Monocytes % 9.1 %; Neutrophils # 7.3 K/mcL (1.6-8.9); Platelet Count 382 K/mcL (140-400); Red Blood Count 4.68 M/mcL (3.82-4.97); Red Cell Distribution Width 12.4 % (11.5-14.5); Segmented Neutrophils % 46.8 %
[2018-10-22 01:40] LABS: Bilirubin,Urine Negative (Negative); Blood,Urine Negative (Negative); Clarity,Urine Clear (Clear); Color,Urine Yellow (Yellow); Glucose,Urine (UA) Normal (Normal); Ketones,Urine Negative (Negative); Leukocyte Esterase,Urine Negative (Negative); Nitrite,Urine Negative (Negative); Protein,Urine Negative (Neg-Trace); Specific Gravity,Urine 1.011 (1.010-1.025); Urobilinogen,Urine Normal (Normal)
[2018-10-22 01:55] LABS: Alanine Aminotransferase 13 Units/L (7-52); Albumin 4.3 g/dL (3.5-5.7); Albumin/Globulin Ratio 1.5 (1.1-2.2); Alkaline Phosphatase 101 Units/L (34-104); Aspartate Amino Transferase 10 Units/L (13-39); BUN/Creatinine Ratio 12 (6-26); Bilirubin,Direct 0.1 mg/dL (0.0-0.2); Bilirubin,Indirect 0.2 mg/dL (0.0-1.2); Bilirubin,Total 0.3 mg/dL (0.3-1.0); Blood Urea Nitrogen 9 mg/dL (6-20); Calcium 9.4 mg/dL (8.6-10.3); Carbon Dioxide 25 mEq/L (23-29); Chloride 102 mEq/L (98-107); Globulin 2.9 g/dL (2.4-3.5); Glucose 86 mg/dL (70-105); Lipase 25 Units/L (11-82); Osmolality,Calculated 276 (280-300); Potassium 2.8 mEq/L (3.5-5.1); Sodium 134 mEq/L (136-145); Total Protein 7.2 g/dL (6.4-8.9); eGFR For Non-African Americans > 60 (> 60)
--- NOTE | 2018-10-22 02:19 | Emergency Department Note ---
Addendum entered and electronically signed by Aden Yu 10/22/18 04:59: EKG performed at 0 454 with ventricular rate of 55, regular rhythm, normal axis, some flattening of the T waves, no ST segment elevation or depression. Original Note: Disposition Clinical Impression: Hypokalemia Abdominal pain Qualifiers: Abdominal location: epigastric Qualified Code(s): R10.13 - Epigastric pain Nausea and vomiting Qualifiers: Vomiting type: unspecified Vomiting Intractability: intractable Qualified Code(s): R11.2 - Nausea with vomiting, unspecified Disposition: Admitted As Inpatient Condition: Fair Forms: ED Satisfaction Letter Time of Disposition: 03:35 General Adult HPI - General Chief complaint: ED Nausea/Vomiting/Diarrhea Stated complaint: N/V Time Seen by Provider: 10/22/18 00:38 Source: patient Limitations: no limitations Nursing Notes Reviewed: Yes Vital Signs Reviewed: Yes - History of Present Illness HPI Narrative: Patient is a 43-year-old female presenting with abdominal pain. Patient has history of fibromyalgia, marijuana use. Patient states that over the past 3 days she has had midepigastric abdominal pain going down into the left lower quadrant. She states this is sharpshooting with dull ache in nature. She states she has had associated nausea with multiple episodes of vomiting as well as diarrhea. She states there is been no hematochezia, hematemesis or melena. She states that she has had a couple episodes of her typical hemorrhoid bleeding on the toilet paper. Patient has had subjective fevers and chills. She denies any chest pain or shortness of breath. She states that just prior to arrival, she was in her car and had burning sensation going from the middle of her abdomen into her chest. She denies any lightheaded or dizziness. No urinary symptoms. Pain Scale: 8 - Related Data Home Medications Medication Instructions Recorded Confirmed Duloxetine HCl [Cymbalta] 30 mg PO DAILY 04/25/15 07/04/17 Lurasidone HCl [Latuda] 120 mg PO HS 04/25/15 07/04/17 Trazodone HCl [TraZODone] 150 mg PO HS 04/25/15 07/04/17 Albuterol Sulfate [Proair Hfa] 1 puff IH TID 05/24/16 07/04/17 Cholecalciferol (Vitamin D3) 1,000 unit PO DAILY 05/24/16 07/04/17 [Vitamin D3] HydrOXYzine Pamoate [Vistaril] 50 mg PO TID 05/24/16 07/04/17 Levothyroxine Sodium [Tirosint] 50 mcg PO DAILY 05/24/16 07/04/17 Prazosin HCl [Minipress] 5 mg PO HS 05/24/16 07/04/17 Propranolol HCl 20 mg PO HS 05/24/16 07/04/17 raNITIdine HCl [Zantac] 150 mg PO BID 05/24/16 07/04/17 Vitamin B Complex [B Complex] 1 tab PO DAILY 05/25/16 07/04/17 Albuterol Neb [Proventil Neb] 2.5 mg IH Q4HR PRN 08/10/16 07/04/17 Montelukast [Singulair] 10 mg PO HS 02/21/17 07/04/17 Pantoprazole Sodium [Protonix] 40 mg PO BID 02/21/17 07/04/17 Baclofen [Lioresal] 10 mg PO TID 04/23/17 07/04/17 Dicyclomine [Bentyl] 20 mg PO TID 06/29/17 07/04/17 diazePAM [Valium] 5 mg PO DAILY 06/29/17 07/04/17 BuPROPion XL (24 HR) [Wellbutrin 150 mg PO DAILY 07/04/17 07/04/17 Xl] Previous Rx's Medication Instructions Recorded Pregabalin [Lyrica] 150 mg PO BID capsule 02/24/17 Acetaminophen [Tylenol] 650 mg PO Q6HR PRN tab 04/25/17 Nicotine Patch [Nicoderm] 21 mg TD DAILY #30 patch.td24 07/05/17 OxyCODONE/APAP 10/325 [Percocet 1 each PO Q6HR PRN #15 tablet 07/05/17 10/325 MG] Sulfamethoxazole/Trimeth DS 1 each PO BID #14 tablet 07/05/17 [Bactrim DS] methylPREDNISolone [Medrol] 1 each PO DAILY #1 pack 08/09/17 Rizatriptan Benzoate [Maxalt [employer]] 5 mg PO Q2HR PRN #20 tab.rapdis 12/07/17 Azithromycin [Azithromycin 6-Tab 250 mg PO PER PKG DI #6 tab 12/21/17 Pack] Acetaminophen [Tylenol] 1,000 mg PO TID #30 tablet 01/15/18 Lidocaine Patch [Lidoderm 5% patch] 1 each TP DAILY #5 adh..patch 01/15/18 Ondansetron [Zofran] 8 mg PO Q8HR #9 tablet 01/15/18 methylPREDNISolone [Medrol] 1 each PO DAILY #1 pack 08/09/18 Allergies Allergy/AdvReac Type Severity Reaction Status Date / Time latex Allergy Rash Verified 12/21/17 11:08 naproxen [From Naprosyn] Allergy Swelling Verified 12/21/17 11:08 of Lip/Tongue/Throat aluminum hydroxide AdvReac Vomiting Verified 12/21/17 11:08 [From Mylanta] bismuth subsalicylate AdvReac Vomiting Verified 12/21/17 11:08 [From Pepto-Bismol] caffeine AdvReac Vomiting Verified 12/21/17 11:08 calcium carbonate AdvReac Vomiting Verified 12/21/17 11:08 [From Mylanta] codeine AdvReac Vomiting Verified 12/21/17 11:08 magnesium [From Mylanta] AdvReac Vomiting Verified 12/21/17 11:08 simethicone [From Mylanta] AdvReac Vomiting Verified 12/21/17 11:08 tramadol [From Ultram] AdvReac Nausea Verified 12/21/17 11:08 All systems ED: reviewed and negative except as stated. Review of Systems: As Per HPI Constitutional: Reports: fever, chills ENT ED: Denies: ear pain, throat pain, dental pain, hearing loss, epistaxis, congestion, dysphagia Cardiovascular: Denies: chest pain, palpitations, dyspnea on exertion, edema, syncope Respiratory: Denies: cough, dyspnea, wheezes, hemoptysis, stridor Gastrointestinal: Reports: abdominal pain, nausea, vomiting, diarrhea. Denies: constipation, hematemesis, melena, hematochezia Genitourinary: Denies: urgency, dysuria, frequency, hematuria Musculoskeletal: Denies: back pain Integumentary: Denies: rash Neurological: Denies: headache, weakness, confusion Endocrine: Denies: fatigue Past Medical History - Past Medical History Medical history: Reports: arthritis, asthma, COPD, fibromyalgia, GERD, migraine, thyroid disease Surgical history: Reports: cholecystectomy, hysterectomy Psychiatric history: Reports: anxiety, bipolar, depression, PTSD, prior suicide attempt, previous psychiatric hospitalization [employer] history: Reports: no [employer] history - Social History Smoking Status: Current every day smoker Smokeless Tobacco Status: No Alcohol use: Reports: none Drug use: Reports: marijuana Physical Exam - General Limitations: no limitations General appearance: alert - Head Head exam: atraumatic, normocephalic, normal inspection - Eye Eye exam: Present: normal appearance, PERRL, EOMI - ENT ENT exam: normal oropharynx, mucous membranes dry - Neck Neck exam: Present: normal inspection, full ROM, trachea midline - Chest Chest inspection: Present: normal inspection, symmetric chest wall rise - Respiratory Respiratory exam: Present: normal lung sounds bilaterally - Cardiovascular Cardiovascular exam: Present: regular rate, normal rhythm, normal heart sounds - Abdominal Exam Abdominal exam: Present: soft, tenderness (Patient has soft abdomen, she is tender to the midepigastric region as well as throughout and into the left lower quadrant, no guarding or rebound. Patient does have distractible pain, however at times will cry due to palpation.). Absent: distention, guarding, rebound, r igidity - Extremities Exam Extremities exam: Present: normal inspection, full ROM. Absent: tenderness, pedal edema - Expanded Lower Extremity Exam Neurovascular/Tendon exam: Absent: motor deficit, sensory deficit, tendon deficit - Back Exam Back exam: Present: normal inspection, full ROM. Absent: tenderness - Neurological Exam Neurological exam: Present: alert, oriented X3 - Psychiatric Psychiatric exam: Present: normal affect, normal mood - Skin Skin exam: Present: warm, dry, intact, normal color. Absent: rash Course Vital Signs Temperature 98.1 F 10/22/18 00:09 Pulse Rate 55 10/22/18 00:09 Respiratory Rate 18 10/22/18 00:09 Blood Pressure 118/78 10/22/18 00:09 O2 Sat by Pulse Oximetry 96 10/22/18 00:09 Temperature 98.1 F 10/22/18 00:09 Pulse Rate 56 10/22/18 03:30 Respiratory Rate 18 10/22/18 00:09 Blood Pressure 131/76 10/22/18 03:30 O2 Sat by Pulse Oximetry 96 10/22/18 00:09 Oxygen Delivery Oxygen Delivery Room Air Medical Decision Making - MDM Narrative Medical decision making narrative: Patient is a 43-year-old female presenting with abdominal pain. Patient with also nausea, vomiting and diarrhea. Patient appears in no acute distress on examination, is normotensive and afebrile. Patient with tenderness to the abdomen diffusely, greatest in the midepigastric region. While in the ER, patient was given a GI cocktail, Zofran as well as fluids. Patient states the GI cocktail and Zofran did not work for her nausea. Patient continued to dry heave and fluids and repeat peak dosing of Zofran was given. CBC does show slight leukocytosis at 15, however upon further review of chart guarding, appears a patient chronically has slight elevation in leukocytosis with recent visits. Patient is found to have hypokalemia at 2.8. Patient was given 40 mEq liquid solution and she was unable to tolerate oral intake. Hepatic and lipase are all within normal limits. Urinalysis is negative for acute infection. CT of the abdomen and pelvis was performed which shows no acute intra-abdominal or pelvic etiology. At this point in time, as the patient is hypokalemic as well as has intractable vomiting, we will have to admit the patient at this point. Did discuss these findings with the patient, she is agreeable to disposition. - Medical Records Medical records reviewed: Yes I reviewed the patient's medical records. - Lab Data Lab results reviewed: Yes I reviewed the patient's lab results. Result diagrams: 10/22/18 01:26 10/22/18 01:26 Lab Results 10/22/18 10/22/18 10/22/18 Range/Units 01:26 01:26 01:32 WBC 15.6 H (4.3-11.1) K/mcL RBC 4.68 (3.82-4.97) M/mcL Hgb 13.4 (11.5-15.4) g/dL Hct 39.2 (35.3-44.9) % MCV 83.8 (83.0-100.0) fL MCH 28.6 (28.0-33.3) pg MCHC 34.2 (31.6-35.5) g/dL RDW 12.4 (11.5-14.5) % Plt Count 382 (140-400) K/mcL MPV 9.5 (9.4-12.4) fL Immature Gran % 0.7 (0-4) % Seg Neutrophils % 46.8 % Lymphocytes % 42.7 % Monocytes % 9.1 % Eosinophils % 0.3 % Basophils % 0.4 % Neutrophils # 7.3 (1.6-8.9) K/mcL Lymphocytes # 6.7 H (0.6-4.6) K/mcL Monocytes # 1.4 H (0.0-1.3) K/mcL Eosinophils # 0.0 (0.0-0.6) K/mcL Basophils # 0.1 (0.0-0.2) K/mcL Sodium 134 L (136-145) mEq/L Potassium 2.8 L (3.5-5.1) mEq/L Chloride 102 (98-107) mEq/L Carbon Dioxide 25 (23-29) mEq/L BUN 9 (6-20) mg/dL Creatinine 0.75 (0.60-1.20) mg/dL Est GFR ( Amer) > 60 (> 60) Est GFR (Non-Af Amer) > 60 (> 60) BUN/Creatinine Ratio 12 (6-26) Glucose 86 (70-105) mg/dL Calculated Osmolality 276 L (280-300) Calcium 9.4 (8.6-10.3) mg/dL Total Bilirubin 0.3 (0.3-1.0) mg/dL Direct Bilirubin 0.1 (0.0-0.2) mg/dL Indirect Bilirubin 0.2 (0.0-1.2) mg/dL AST 10 L (13-39) Units/L ALT 13 (7-52) Units/L Alkaline Phosphatase 101 (34-104) Units/L Serum Total Protein 7.2 (6.4-8.9) g/dL Albumin 4.3 (3.5-5.7) g/dL Globulin 2.9 (2.4-3.5) g/dL Albumin/Globulin Ratio 1.5 (1.1-2.2) Lipase 25 (11-82) Units/L Urine Color Yellow (Yellow) Urine Clarity Clear (Clear) Urine pH 6.0 (5.0-8.0) pH Units Ur Specific [place] 1.011 (1.010-1.025) Urine Protein Negative (Neg-Trace) mg/dL Urine Glucose (UA) Normal (Normal) mg/dL Urine Ketones Negative (Negative) mg/dL Urine Blood Negative (Negative) Urine Nitrite Negative (Negative) Urine Bilirubin Negative (Negative) Urine Urobilinogen Normal (Normal) mg/dL Ur Leukocyte Esterase Negative (Negative) Ur Culture Indicated? NO (NO) - Radiology Data Radiology results reviewed: Yes I reviewed the patient's radiology results. Abdomen/Pelvis CT 10/22/18 01:12 IMPRESSION: No acute abdominopelvic findings. No evidence of urinary tract stone disease. Normal appendix. D/ / Trevon Shearer / Trevon Shearer Interpreting Provider: Trevon Alex - Abi Situation: Demographics, MOA Background: Presenting Complaint, Relevant PMH, Meds, & Allergies Assessment: Vital Signs, Course and respsone to treatment, Exam Concerns, Patient/Family Expectation, Pertinant Lab Results, Outstanding Labs Recommendation: Barrier(s) to disposition, Recommendation based on pending studies, treatments, or consults Abi Report Given to: Dr. Bill Alex Repor Time: 04:12 (accepted)
[2018-10-22] MEDS ORDERED: *HR* FentaNYL (PF) 100 MCG/2 ML VIAL IVP ONE (02:59)
[2018-10-22] MEDS ORDERED: Potassium Chloride Elixir 20 MEQ/15 ML UDC PO ONE (03:01)
--- NOTE | 2018-10-22 03:35 | Emergency Department Note ---
Disposition Clinical Impression: Hypokalemia Abdominal pain Qualifiers: Abdominal location: epigastric Qualified Code(s): R10.13 - Epigastric pain Nausea and vomiting Qualifiers: Vomiting type: unspecified Vomiting Intractability: intractable Qualified Code(s): R11.2 - Nausea with vomiting, unspecified Disposition: Admitted As Inpatient Condition: Fair General Adult HPI - General Chief complaint: ED Nausea/Vomiting/Diarrhea Stated complaint: N/V Time Seen by Provider: 10/22/18 00:38 Source: patient Limitations: no limitations Nursing Notes Reviewed: Yes Vital Signs Reviewed: Yes - History of Present Illness Pain Scale: 8 - Related Data Home Medications Medication Instructions Recorded Confirmed Duloxetine HCl [Cymbalta] 30 mg PO DAILY 04/25/15 07/04/17 Lurasidone HCl [Latuda] 120 mg PO HS 04/25/15 07/04/17 Trazodone HCl [TraZODone] 150 mg PO HS 04/25/15 07/04/17 Albuterol Sulfate [Proair Hfa] 1 puff IH TID 05/24/16 07/04/17 Cholecalciferol (Vitamin D3) 1,000 unit PO DAILY 05/24/16 07/04/17 [Vitamin D3] HydrOXYzine Pamoate [Vistaril] 50 mg PO TID 05/24/16 07/04/17 Levothyroxine Sodium [Tirosint] 50 mcg PO DAILY 05/24/16 07/04/17 Prazosin HCl [Minipress] 5 mg PO HS 05/24/16 07/04/17 Propranolol HCl 20 mg PO HS 05/24/16 07/04/17 raNITIdine HCl [Zantac] 150 mg PO BID 05/24/16 07/04/17 Vitamin B Complex [B Complex] 1 tab PO DAILY 05/25/16 07/04/17 Albuterol Neb [Proventil Neb] 2.5 mg IH Q4HR PRN 08/10/16 07/04/17 Montelukast [Singulair] 10 mg PO HS 02/21/17 07/04/17 Pantoprazole Sodium [Protonix] 40 mg PO BID 02/21/17 07/04/17 Baclofen [Lioresal] 10 mg PO TID 04/23/17 07/04/17 Dicyclomine [Bentyl] 20 mg PO TID 06/29/17 07/04/17 diazePAM [Valium] 5 mg PO DAILY 06/29/17 07/04/17 BuPROPion XL (24 HR) [Wellbutrin 150 mg PO DAILY 07/04/17 07/04/17 Xl] Previous Rx's Medication Instructions Recorded Pregabalin [Lyrica] 150 mg PO BID capsule 02/24/17 Acetaminophen [Tylenol] 650 mg PO Q6HR PRN tab 04/25/17 Nicotine Patch [Nicoderm] 21 mg TD DAILY #30 patch.td24 07/05/17 OxyCODONE/APAP 10/325 [Percocet 1 each PO Q6HR PRN #15 tablet 07/05/17 10/325 MG] Sulfamethoxazole/Trimeth DS 1 each PO BID #14 tablet 07/05/17 [Bactrim DS] methylPREDNISolone [Medrol] 1 each PO DAILY #1 pack 08/09/17 Rizatriptan Benzoate [Maxalt Retail Greeting Card Merchandiser] 5 mg PO Q2HR PRN #20 tab.rapdis 12/07/17 Azithromycin [Azithromycin 6-Tab 250 mg PO PER PKG DI #6 tab 12/21/17 Pack] Acetaminophen [Tylenol] 1,000 mg PO TID #30 tablet 01/15/18 Lidocaine Patch [Lidoderm 5% patch] 1 each TP DAILY #5 adh..patch 01/15/18 Ondansetron [Zofran] 8 mg PO Q8HR #9 tablet 01/15/18 methylPREDNISolone [Medrol] 1 each PO DAILY #1 pack 08/09/18 Allergies Allergy/AdvReac Type Severity Reaction Status Date / Time latex Allergy Rash Verified 12/21/17 11:08 naproxen [From Naprosyn] Allergy Swelling Verified 12/21/17 11:08 of Lip/Tongue/Throat aluminum hydroxide AdvReac Vomiting Verified 12/21/17 11:08 [From Mylanta] bismuth subsalicylate AdvReac Vomiting Verified 12/21/17 11:08 [From Pepto-Bismol] caffeine AdvReac Vomiting Verified 12/21/17 11:08 calcium carbonate AdvReac Vomiting Verified 12/21/17 11:08 [From Mylanta] codeine AdvReac Vomiting Verified 12/21/17 11:08 magnesium [From Mylanta] AdvReac Vomiting Verified 12/21/17 11:08 simethicone [From Mylanta] AdvReac Vomiting Verified 12/21/17 11:08 tramadol [From Ultram] AdvReac Nausea Verified 12/21/17 11:08 Constitutional: Reports: fever, chills ENT ED: Denies: ear pain, throat pain, dental pain, hearing loss, epistaxis, congestion, dysphagia Cardiovascular: Denies: chest pain, palpitations, dyspnea on exertion, edema, syncope Respiratory: Denies: cough, dyspnea, wheezes, hemoptysis, stridor Gastrointestinal: Reports: abdominal pain, nausea, vomiting, diarrhea. Denies: constipation, hematemesis, melena, hematochezia Genitourinary: Denies: urgency, dysuria, frequency, hematuria Musculoskeletal: Denies: back pain Integumentary: Denies: rash Neurological: Denies: headache, weakness, confusion Endocrine: Denies: fatigue Past Medical History - Past Medical History Medical history: Reports: arthritis, asthma, COPD, fibromyalgia, GERD, migraine, thyroid disease Surgical history: Reports: cholecystectomy, hysterectomy Psychiatric history: Reports: anxiety, bipolar, depression, PTSD, prior suicide attempt, previous psychiatric hospitalization LEGAL RECORDS CLERK history: Reports: no LEGAL RECORDS CLERK history - Social History Smoking Status: Current every day smoker Smokeless Tobacco Status: No Alcohol use: Reports: none Drug use: Reports: marijuana Physical Exam - General Limitations: no limitations General appearance: alert Course Vital Signs Temperature 98.1 F 10/22/18 00:09 Pulse Rate 55 10/22/18 00:09 Respiratory Rate 18 10/22/18 00:09 Blood Pressure 118/78 10/22/18 00:09 O2 Sat by Pulse Oximetry 96 10/22/18 00:09 Temperature 98.1 F 10/22/18 00:09 Pulse Rate 56 10/22/18 03:30 Respiratory Rate 18 10/22/18 00:09 Blood Pressure 131/76 10/22/18 03:30 O2 Sat by Pulse Oximetry 96 10/22/18 00:09 Oxygen Delivery Oxygen Delivery Room Air Medical Decision Making - Medical Records Medical records reviewed: Yes I reviewed the patient's medical records. - Lab Data Lab results reviewed: Yes I reviewed the patient's lab results. Result diagrams: 10/22/18 01:26 10/22/18 01:26 Lab Results 10/22/18 10/22/18 10/22/18 Range/Units 01:26 01:26 01:32 WBC 15.6 H (4.3-11.1) K/mcL RBC 4.68 (3.82-4.97) M/mcL Hgb 13.4 (11.5-15.4) g/dL Hct 39.2 (35.3-44.9) % MCV 83.8 (83.0-100.0) fL MCH 28.6 (28.0-33.3) pg MCHC 34.2 (31.6-35.5) g/dL RDW 12.4 (11.5-14.5) % Plt Count 382 (140-400) K/mcL MPV 9.5 (9.4-12.4) fL Immature Gran % 0.7 (0-4) % Seg Neutrophils % 46.8 % Lymphocytes % 42.7 % Monocytes % 9.1 % Eosinophils % 0.3 % Basophils % 0.4 % Neutrophils # 7.3 (1.6-8.9) K/mcL Lymphocytes # 6.7 H (0.6-4.6) K/mcL Monocytes # 1.4 H (0.0-1.3) K/mcL Eosinophils # 0.0 (0.0-0.6) K/mcL Basophils # 0.1 (0.0-0.2) K/mcL Sodium 134 L (136-145) mEq/L Potassium 2.8 L (3.5-5.1) mEq/L Chloride 102 (98-107) mEq/L Carbon Dioxide 25 (23-29) mEq/L BUN 9 (6-20) mg/dL Creatinine 0.75 (0.60-1.20) mg/dL Est GFR ( Amer) > 60 (> 60) Est GFR (Non-Af Amer) > 60 (> 60) BUN/Creatinine Ratio 12 (6-26) Glucose 86 (70-105) mg/dL Calculated Osmolality 276 L (280-300) Calcium 9.4 (8.6-10.3) mg/dL Total Bilirubin 0.3 (0.3-1.0) mg/dL Direct Bilirubin 0.1 (0.0-0.2) mg/dL Indirect Bilirubin 0.2 (0.0-1.2) mg/dL AST 10 L (13-39) Units/L ALT 13 (7-52) Units/L Alkaline Phosphatase 101 (34-104) Units/L Serum Total Protein 7.2 (6.4-8.9) g/dL Albumin 4.3 (3.5-5.7) g/dL Globulin 2.9 (2.4-3.5) g/dL Albumin/Globulin Ratio 1.5 (1.1-2.2) Lipase 25 (11-82) Units/L Urine Color Yellow (Yellow) Urine Clarity Clear (Clear) Urine pH 6.0 (5.0-8.0) pH Units Ur Specific [place] 1.011 (1.010-1.025) Urine Protein Negative (Neg-Trace) mg/dL Urine Glucose (UA) Normal (Normal) mg/dL Urine Ketones Negative (Negative) mg/dL Urine Blood Negative (Negative) Urine Nitrite Negative (Negative) Urine Bilirubin Negative (Negative) Urine Urobilinogen Normal (Normal) mg/dL Ur Leukocyte Esterase Negative (Negative) Ur Culture Indicated? NO (NO) - Radiology Data Radiology results reviewed: Yes I reviewed the patient's radiology results. Abdomen/Pelvis CT 10/22/18 01:12 IMPRESSION: No acute abdominopelvic findings. No evidence of urinary tract stone disease. Normal appendix. D/ / Trevon Shearer / Trevon Shearer Interpreting Provider: Trevon Shearer Attestation Statement - Attestation Attestation: I, Nicho Dorado MD, personally evaluated this patient and discussed their management with the resident physician. I reviewed the resident's note and agree with the documented findings, medical decision making, and plan of care. 43-year-old female persisted emergency department with a complaint of epigastric abdominal pain for 3-4 days prior to arrival. Also some left mid and left lower abdominal pain. She has had a lot of nausea and vomiting and unable to keep anything down. She states that she has had chills and fever however she has been checking it at home and reports that the highest reading was 98.9. No melena, hematemesis, or hematochezia. No urinary symptoms. On examination patient is a well-developed well-nourished female in no acute d istress. She is alert and oriented 3. There is no cyanosis or diaphoresis. Breath sounds are clear and equal bilaterally. Heart regular rate and rhythm. Abdomen is soft with increased bowel sounds. There is moderate midepigastric tenderness and mild left mid and lower quadrant tenderness. Labs reviewed. Potassium 2.8. Patient does have a leukocytosis at 15.6 however on reviewing her previous labs she seems to frequently run in this range. CT the abdomen and pelvis showed no acute abnormality. The hospitalist, Dr. Khan, was consulted and accepted admission of the patient.
[2018-10-22] MEDS ORDERED: Naloxone 0.4 MG/ML INJ IVP PRN (04:13)
[2018-10-22] MEDS ORDERED: Acetaminophen 325 MG TABLET PO PRN (04:13)
[2018-10-22] MEDS ORDERED: traMADol 50 MG TABLET PO PRN (04:13)
[2018-10-22] MEDS ORDERED: 1: Ringers Solution, Lactated 1,000 ML with Promethazine 50 MG 2: Ringers Solution, Lac IV SCH (04:15)
[2018-10-22] MEDS ORDERED: Ondansetron 4 MG/2 ML VIAL ONE (04:36)
[2018-10-22] MEDS: Ondansetron 4 MG/2 ML VIAL IVP PRN ×2 (04:42→16:41)
[2018-10-22] MEDS ORDERED: [UNRECOGNIZED DRUG - OTHER] IVPB ONE (04:45)
[2018-10-22] MEDS ORDERED: PYRIDOXINE IVPB ONE (04:45)
[2018-10-22] MEDS ORDERED: PROMETHAZINE IVPB ONE (04:45)
[2018-10-22] MEDS ORDERED: VITAMIN K IVPB ONE (04:45)
[2018-10-22] MEDS ORDERED: MVI IVPB ONE (04:45)
[2018-10-22] MEDS ORDERED: *HR* LORazepam 2 MG/ML VIAL IVP ONE (04:59)
[2018-10-22] MEDS: Ketorolac 30 MG/ML VIAL IVP PRN ×2 (05:14→11:49)
[2018-10-22] MEDS: 0.9 % Sodium Chloride w KCl 40 MEQ/1,000 ML MLS IVC SCH ×2 (05:20→13:47)
--- NOTE | 2018-10-22 05:32 | Internal Med History&Physical ---
Date of Encounter: 10/22/18 Time of Encounter: 05:29 Internal Medicine - H&P: HPI Chief complaint: Nausea and vomiting. Admitted From: Home Plans for Post Hospital Care: Home History of present illness: Jennifer Wei is a 43-year-old woman who reports multiple medical and psychiatric comorbidities who presents to the emergency room complaining of 3 days of mid abdominal and epigastric pain associated with nausea and multiple episodes of vomiting with occasional diarrhea. She has noticed no blood in any of those products. She has had some chills but no fever. She feels significantly fatigued and malaise. She has been feeling it as a burning sensation in the middle of her abdomen. Exam shows seen to have moderate tenderness of her abdominal palpation with grams revealing potassium of 2.8, leukocyte count of 15.6 and sodium of 134. Review of old records it is noted that she has frequently had a leukocyte level at that range. Attempts were made to supplement her potassium orally but she vomited them. She received multiple doses of pain medications and antiemetics with no relief. CT abdomen/pelvis was done which showed no acute anomalies. She is admitted for further observation. She admits to daily chronic marijuana use. Past Med Surg Social Fam HX - Past Medical History Medical history: arthritis, asthma, COPD, fibromyalgia, GERD, migraine, thyroid disease Additional medical history: hypothyroidism Psychiatric history: anxiety, bipolar, depression, PTSD, prior suicide attempt, previous psychiatric hospitalization - Past Surgical History Surgical History: cholecystectomy, hysterectomy - Social History Smoking Status: Current every day smoker Smokeless Tobacco Status: No Alcohol use: none Drug use: marijuana - Family History Father Adopted: No Family Member Ethnicity: Non- Living Status: Hx Family Cardiac Disorders: Yes (hyperlipidemia) Hx Family Respiratory Disorders: No Hx Family Cancer: Yes (Esophageal) Hx Family GI Disorders: No Hx Family Endocrine Disorder: No Hx Family Neuromuscular Disorders: No Hx Family Neurologic Disorders: Yes (anxiety) Hx Family HEENT Disorders: No Hx Family Autoimmune Disorders: No Mother Adopted: No Family Member Ethnicity: Non- Living Status: Still Living Hx Family Cardiac Disorders: No Hx Family Respiratory Disorders: Yes Hx Family Cancer: No Hx Family GI Disorders: Yes (Kidney stones, IBS) Hx Family Endocrine Disorder: No Hx Family Neuromuscular Disorders: No Hx Family Neurologic Disorders: Yes (Anxiety) Hx Family HEENT Disorders: No Hx Family Autoimmune Disorders: No Internal Medicine - H&P: Meds Duloxetine HCl [Cymbalta] 30 mg PO DAILY 04/25/15 [History] Lurasidone HCl [Latuda] 120 mg PO HS 04/25/15 [History] Trazodone HCl [TraZODone] 150 mg PO HS 04/25/15 [History] Albuterol Sulfate [Proair Hfa] 1 puff IH TID 05/24/16 [History] Cholecalciferol (Vitamin D3) [Vitamin D3] 1,000 unit PO DAILY 05/24/16 [History] HydrOXYzine Pamoate [Vistaril] 50 mg PO TID 05/24/16 [History] Levothyroxine Sodium [Tirosint] 50 mcg PO DAILY 05/24/16 [History] Prazosin HCl [Minipress] 5 mg PO HS 05/24/16 [History] Propranolol HCl 20 mg PO HS 05/24/16 [History] raNITIdine HCl [Zantac] 150 mg PO BID 05/24/16 [History] Vitamin B Complex [B Complex] 1 tab PO DAILY 05/25/16 [History] Albuterol Neb [Proventil Neb] 2.5 mg IH Q4HR PRN 08/10/16 [History] Montelukast [Singulair] 10 mg PO HS 02/21/17 [History] Pantoprazole Sodium [Protonix] 40 mg PO BID 02/21/17 [History] Pregabalin [Lyrica] 150 mg PO BID capsule 02/24/17 [Rx] Baclofen [Lioresal] 10 mg PO TID 04/23/17 [History] Acetaminophen [Tylenol] 650 mg PO Q6HR PRN tab 04/25/17 [Rx] Dicyclomine [Bentyl] 20 mg PO TID 06/29/17 [History] diazePAM [Valium] 5 mg PO DAILY 06/29/17 [History] BuPROPion XL (24 HR) [Wellbutrin Xl] 150 mg PO DAILY 07/04/17 [History] Nicotine Patch [Nicoderm] 21 mg TD DAILY #30 patch.td24 07/05/17 [Rx] OxyCODONE/APAP 10/325 [Percocet 10/325 MG] 1 each PO Q6HR PRN #15 tablet 07/05/17 [Rx] Sulfamethoxazole/Trimeth DS [Bactrim DS] 1 each PO BID #14 tablet 07/05/17 [Rx] methylPREDNISolone [Medrol] 1 each PO DAILY #1 pack 08/09/17 [Rx] Rizatriptan Benzoate [Maxalt Baggage Agent Supervisor] 5 mg PO Q2HR PRN #20 tab.rapdis 12/07/17 [Rx] Azithromycin [Azithromycin 6-Tab Pack] 250 mg PO PER PKG DI #6 tab 12/21/17 [Rx] Acetaminophen [Tylenol] 1,000 mg PO TID #30 tablet 01/15/18 [Rx] Lidocaine Patch [Lidoderm 5% patch] 1 each TP DAILY #5 adh..patch 01/15/18 [Rx] Ondansetron [Zofran] 8 mg PO Q8HR #9 tablet 01/15/18 [Rx] methylPREDNISolone [Medrol] 1 each PO DAILY #1 pack 08/09/18 [Rx] Allergy/AdvReac Type Severity Reaction Status Date / Time latex Allergy Rash Verified 12/21/17 11:08 naproxen [From Naprosyn] Allergy Swelling Verified 12/21/17 11:08 of Lip/Tongue/Throat aluminum hydroxide AdvReac Vomiting Verified 12/21/17 11:08 [From Mylanta] bismuth subsalicylate AdvReac Vomiting Verified 12/21/17 11:08 [From Pepto-Bismol] caffeine AdvReac Vomiting Verified 12/21/17 11:08 calcium carbonate AdvReac Vomiting Verified 12/21/17 11:08 [From Mylanta] codeine AdvReac Vomiting Verified 12/21/17 11:08 magnesium [From Mylanta] AdvReac Vomiting Verified 12/21/17 11:08 simethicone [From Mylanta] AdvReac Vomiting Verified 12/21/17 11:08 tramadol [From Ultram] AdvReac Nausea Verified 12/21/17 11:08 All Systems PM: A 10-system review of systems was performed and is negative for pertinent findings except as documented above in the HPI. - Constitutional Vitals: Temp Pulse Resp BP Pulse Ox 98.4 F 51 15 142/76 95 10/22/18 05:20 10/22/18 05:20 10/22/18 05:20 10/22/18 05:20 10/22/18 05:20 Exam: Vitals: Reviewed General: Well-developed white woman lying in bed in notable discomfort. Skin: Warm, dry, pale. HEENT: Dry mucous membranes. + conjunctivae pallor. Neck: No lymphadenopathy. No JVD. No carotid bruits. No palpable thyroid. Chest: Normal thoracic expansion. Normal breath sounds. Clear to auscultation. Heart: Normal S1 & S2; rhythmic. No rubs or murmurs. Abdomen: Non-distended, soft and tenderness elicited on palpation of the upper hemiabdomen. Extremities: No clubbing, cyanosis or edema. No calf tenderness. Normal distal pulses. Neurological: Awake, alert and oriented to person, place and time. No focal deficits. Psych: Anxious. Internal Med - H&P Results - Labs CBC & Chem 7: 10/22/18 01:26 10/22/18 01:26 Labs: Short CBC 10/22/18 Range/Units 01:26 WBC 15.6 H (4.3-11.1) K/mcL Hgb 13.4 (11.5-15.4) g/dL Hct 39.2 (35.3-44.9) % Plt Count 382 (140-400) K/mcL Neutrophils # 7.3 (1.6-8.9) K/mcL BMP 10/22/18 01:26 Sodium 134 L Potassium 2.8 L Chloride 102 Carbon Dioxide 25 BUN 9 Creatinine 0.75 Glucose 86 Calcium 9.4 Liver Function 10/22/18 Range/Units 01:26 Total Bilirubin 0.3 (0.3-1.0) mg/dL Direct Bilirubin 0.1 (0.0-0.2) mg/dL AST 10 L (13-39) Units/L ALT 13 (7-52) Units/L Alkaline Phosphatase 101 (34-104) Units/L Albumin 4.3 (3.5-5.7) g/dL Urine 10/22/18 Range/Units 01:32 Urine Color Yellow (Yellow) Urine Clarity Clear (Clear) Urine pH 6.0 (5.0-8.0) pH Units Ur Specific [place] 1.011 (1.010-1.025) Urine Protein Negative (Neg-Trace) mg/dL Urine Glucose (UA) Normal (Normal) mg/dL - Impressions ITS Impressions Abdomen/Pelvis CT 10/22/18 01:12 IMPRESSION: No acute abdominopelvic findings. No evidence of urinary tract stone disease. Normal appendix. D/ / Trevon Shearer / Trevon Shearer Interpreting Provider: Trevon Shearer - Assessment and plan (1) Intractable nausea and vomiting Current Visit: Yes Status: Acute Assessment and plan: Unclear etiology. Abdomen CT is unremarkable. I have the concern that this may be related to cannabinoid hyperemesis syndrome given the poor responsiveness thus far and her history. Will admit for observation and trial an infusion of promethazine in LR with multivitamins as well as benzodiazepines with prn ondansetron. In some cases haloperidol has been used and topical capsaicin cream however due to the uncertainty in diagnosis we will avoid these for now. Clear liquid diet ordered which can be advanced as tolerated. Qualifiers: Vomiting type: unspecified Qualified Code(s): R11.2 - Nausea with vomiting, unspecified (2) Hypokalemia Current Visit: Yes Status: Acute Assessment and plan: Likely secondary to upper GI losses. She has been unable to tolerate by mouth supplementation. Will provide 40 mEq of KCl in normal saline to run at 125 per hour to achieve a goal potassium of 4.0. We will check magnesium as well to ensure adequacy. EKG done shows low voltage and poor R-wave progression. (3) DVT prophylaxis Current Visit: Yes Status: Acute Assessment and plan: Subcutaneous heparin ordered. (4) Smoking Current Visit: Yes Status: Chronic Assessment and plan: 5 minutes were spent counseling and educating the patient on this habit. creative services director and resources were made available. (5) Anxiety and depression Current Visit: Yes Status: Chronic Assessment and plan: Notable on presentation. All medications should be resumed once reconciled. (6) Hypothyroid Current Visit: Yes Status: Chronic Assessment and plan: Should be resumed once able to tolerate by mouth. No urgency for an intravenous route right now. Qualifiers: Hypothyroidism type: unspecified Qualified Code(s): E03.9 - Hypothyroidism, unspecified - Time Spent With Patient Total time spent is greater than 50% in coordination of care (as documented) at patient's floor/unit and/or counseling patient: Greater than 35 minutes
[2018-10-22] MEDS: *HR* Heparin 5,000 UNIT/ML VIAL SQ SCH ×2 (05:44→18:58)
[2018-10-22 05:49] LABS: Magnesium 1.9 mg/dL (1.6-2.6)
[2018-10-22 15:32] LABS: Amphetamine Screen,Urine Negative ng/mL (Cutoff=1000); Barbiturate Screen,Urine Negative ng/mL (Cutoff=200); Benzodiazepines Screen,Urine Negative ng/mL (Cutoff=200); Cannabinoid Screen,Urine Positive ng/mL (Cutoff = 50); Cocaine Screen,Urine Negative ng/mL (Cutoff= 300); Opiate Screen,Urine Positive ng/mL (Cutoff=300); Phencyclidine Screen,Urine Negative ng/mL (Cutoff=25)
[2018-10-22 15:49] LABS: Adenovirus F 40/41 PCR Not detected (Not detect); Astrovirus PCR Not detected (Not detect); C.difficile Toxin A/B Gene PCR Not detected (Not detect); Campylobacter by PCR Not detected (Not detect); Cryptosporidium by PCR Not detected (Not detect); Cyclospora cayetanensis PCR Not detected (Not detect); E. coli O157 by PCR Not detected (Not detect); Entamoeba histolytica PCR Not detected (Not detect); Enteroaggregative E.coli(EAEC) Not detected (Not detect); Enteropathogenic E.coli(EPEC) Not detected (Not detect); Enterotoxigenic E.coli (ETEC) Not detected (Not detect); Giardia lamblia PCR Not detected (Not detect); Norovirus GI/GII PCR Not detected (Not detect); Plesiomonas shigelloides PCR Not detected (Not detect); Rotavirus A PCR Not detected (Not detect); Salmonella PCR Not detected (Not detect); Sapovirus PCR Not detected (Not detect); Shig/EnteroinvasiveE coli EIEC Not detected (Not detect); Shigalike tox-prod E coli STEC Not detected (Not detect); Vibrio PCR Not detected (Not detect); Vibrio cholerae PCR Not detected (Not detect); Yersinia enterocolitica PCR Not detected (Not detect)
[2018-10-22] MEDS: hydrOXYzine pamoate 25 MG CAPSULE PO PRN (16:01)
[2018-10-22] MEDS: Nicotine 21 MG PATCH.TD24 TD SCH (16:02)
--- NOTE | 2018-10-22 16:27 | Event Note ---
Date of Encounter: 10/22/18 Time of Encounter: 16:37 No acute events. Patient still nauseated with abdominal pain. Resting comfortably during exam at bedside. VS: reviewed, unremarkable. Labs: WBC 15k, no bandemia, potassium 2.9. 1) Intractable N/V - CT abdomen/pelvis unremarkable. + THC, possibly related to marijuana abuse. Continue supportive care, Zofran 2) Hypokalemia - Replaced with KCL, recheck levels this afternoon. 3) Tobacco abuse - Nicotine patch 4) Anxiety and depression - Resume home medications.
[2018-10-22] MEDS: traZODone 50 MG TABLET PO SCH (22:21)
[2018-10-22] MEDS ORDERED: (Rizatriptan Benzoate [Maxalt Mlt] 10 MG) PO PRN (22:38)
[2018-10-23] MEDS: Ketorolac 30 MG/ML VIAL IVP PRN ×4 (00:30→18:22)
[2018-10-23] MEDS: Ondansetron 4 MG/2 ML VIAL IVP PRN ×2 (00:30→06:50)
[2018-10-23] MEDS: hydrOXYzine pamoate 25 MG CAPSULE PO PRN ×3 (02:49→15:30)
[2018-10-23] MEDS: *HR* Heparin 5,000 UNIT/ML VIAL SQ SCH ×2 (06:00→17:18)
[2018-10-23 07:26] LABS: Basophils # 0.1 K/mcL (0.0-0.2); Basophils % 0.5 %; Eosinophils % 0.2 %; Hematocrit 39.4 % (35.3-44.9); Hemoglobin 13.7 g/dL (11.5-15.4); Immature Granulocytes % 0.8 % (0-4); Lymphocytes # 3.5 K/mcL (0.6-4.6); Lymphocytes % 26.6 %; Mean Corpuscular HGB Conc 34.8 g/dL (31.6-35.5); Mean Corpuscular Hemoglobin 28.5 pg (28.0-33.3); Mean Corpuscular Volume 82.1 fL (83.0-100.0); Mean Platelet Volume 9.4 fL (9.4-12.4); Monocytes # 1.5 K/mcL (0.0-1.3); Monocytes % 11.6 %; Neutrophils # 7.8 K/mcL (1.6-8.9); Platelet Count 384 K/mcL (140-400); Red Cell Distribution Width 12.6 % (11.5-14.5); Segmented Neutrophils % 60.3 %
[2018-10-23] MEDS: Baclofen 10 MG TABLET PO SCH ×3 (07:33→20:21)
[2018-10-23] MEDS: Pregabalin 50 MG CAPSULE PO SCH ×2 (07:34→20:21)
[2018-10-23] MEDS: Famotidine 20 MG TABLET PO SCH ×2 (07:34→20:21)
[2018-10-23] MEDS: Nicotine 21 MG PATCH.TD24 TD SCH (07:34)
[2018-10-23] MEDS: Budesonide/Formoterol 160/4.5 1 PUFF INH IH SCH ×2 (07:51→20:31)
--- NOTE | 2018-10-23 08:35 | Internal Med Progress Note ---
<Shey Martell N - Last Filed: 10/23/18 13:03> Hospitalist Progress Note - Encounter Date of Encounter: 10/23/18 Time of Encounter: 08:35 - Subjective Interval History: Ms. Wei was seen and evaluated this morning at the bedside. At that time, she was quite teaful, and was crying secondary to abdominal pain that she rates as 9/10 in severity. She indicates that the pain is localized in the epigastric area and does not radiate. Patient says that she has not had this type of pain since she had her gallbladder removed in June 2017. She states that her symptoms first started on , and have increased in frequency since them. She reports little relief of her nausea with zofran. She reports one episode of diarrhea today, which she states is brown in color, and denies any hematochezia. She also states that she is not tolerating clear liquids well. Staff reports that she has repeatedly voiced anxiety during this admission. - Exam Vitals: Temp Pulse Resp BP Pulse Ox 98.3 F 68 16 150/89 99 10/23/18 05:09 10/23/18 05:09 10/23/18 07:52 10/23/18 05:09 10/23/18 07:52 Exam: GENERAL: Tearful adult female lying in bed. She appears to be in mild distress secondary to abdominal pain. HEENT: Atraumatic and normocephalic. CARDIOVASCULAR: Regular rate and rhythm. S1 and S2 present. No murmurs, gallops, or rubs appreciated. RESPIRATORY: Clear to auscultation bilaterally. Chest rises and falls symmetrically with respiration. No accessory muscle use noted. GASTROINTESTINAL: Abdomen is soft and nondistended. Hypoactive bowel sounds x4 quadrants. Tenderness to palpation over epigastric area, with patient withdrawing from palpation. EXTREMITIES: No clubbing, cyanosis, or edema present. SKIN: Warm, dry, and intact. NEUROLOGIC: She is cooperative with exam and answers questions appropriately. No apparent focal deficits present. PSYCHIATRIC: Patient is tearful and anxious-appearing. - Assessment and Plan (1) Hypokalemia Current Visit: Yes Status: Acute Assessment and Plan: Likely secondary to GI loss from vomiting/diarrhea. Patient has also had poor PO intake. - Replete with 40mEq potassium elixir + 40mEq IV. - Repeat BMP and magnesium with AM labs. (2) Anxiety and depression Current Visit: Yes Status: Chronic Assessment and Plan: Patient has reportedly been repeatedly voicing anxiety during this admission. Staff reports that the patient has stated that she takes daily benzodiazepines; however, I contacted her pharmacy, and they have no record of her having been prescribed or having filled that type of medication. - Continue outpatient medications of cymbalta and buspirone. - Hydroxyzine 50mg TID PRN anxiety. (3) Hypothyroid Current Visit: Yes Status: Chronic Assessment and Plan: - Continue home dose of levothyroxine 50mcg daily. (4) Smoking Current Visit: Yes Status: Chronic Assessment and Plan: - Continue nicotine patch 21mg daily. (5) DVT prophylaxis Current Visit: Yes Status: Acute Assessment and Plan: - Heparin 5000units SQ Q8H (6) Intractable nausea and vomiting Current Visit: Yes Status: Acute Assessment and Plan: Unclear etiology. Review of prior records shows several hospital visits over many years for similar complaints. She has also been followed by Dr. Gardiner in the GI clinic for these issues. Patient does use marijuana on a daily bases, which may be contributing to her symptoms. She has not discontinued this, despite several recommendations to do so, specifically in regards to her chronic nausea/vomiting. CT of the abdomen/pelvis performed on 10/22/2018 was negative for acute abdominal/pelvic findings or urinary tract disease; additionally, patient was noted to have a normal appendix. Patient reports minimal relief of symptoms with zofran. - Discontinue zofran; begin phenergan 12.5mg IVP Q6H PRN. - Continue to encourage PO intake of fluids and continue clear liquid diet as tolerated. - GI consult placed - patient will be made NPO after midnight in the cawse that a procedure is indicated. - Time Spent with Patient Total time spent is greater than 50% in coordination of care (as documented) at patient's floor/unit and/or counseling patient: Internal Medicine: Result - Labs CBC & Chem 7: 10/23/18 07:14 10/23/18 09:15 Labs: Short CBC 10/23/18 Range/Units 07:14 WBC 13.0 H (4.3-11.1) K/mcL Hgb 13.7 (11.5-15.4) g/dL Hct 39.4 (35.3-44.9) % Plt Count 384 (140-400) K/mcL Neutrophils # 7.8 (1.6-8.9) K/mcL BMP 10/22/18 15:43 Potassium 3.6 D - Impressions Impressions Abdomen/Pelvis CT 10/22/18 01:12 IMPRESSION: No acute abdominal or pelvic findings. No evidence of urinary tract stone disease. Normal appendix. D/ / 10/22/2018 07:34:40 Trevon Shearer / margarita Interpreting Provider: Trevon Shearer Consult Discharge Plan - Plan Referrals: NONE,PCP [Primary Care Provider] - <Ariadne Lama - Last Filed: 10/23/18 17:11> Hospitalist Progress Note - Encounter Date of Encounter: 10/23/18 - Exam Vitals: Temp Pulse Resp BP Pulse Ox 97.9 F 71 19 149/91 96 10/23/18 15:00 10/23/18 15:00 10/23/18 15:00 10/23/18 15:00 10/23/18 15:00 - Assessment and Plan (1) Hypokalemia Current Visit: Yes Status: Acute (2) DVT prophylaxis Current Visit: Yes Status: Acute (3) Smoking Current Visit: Yes Status: Chronic (4) Anxiety and depression Current Visit: Yes Status: Chronic (5) Hypothyroid Current Visit: Yes Status: Chronic (6) Intractable nausea and vomiting Current Visit: Yes Status: Acute - Time Spent with Patient Total time spent is greater than 50% in coordination of care (as documented) at patient's floor/unit and/or counseling patient: Internal Medicine: Result - Labs CBC & Chem 7: 10/23/18 07:14 10/23/18 09:15 Labs: Short CBC 10/23/18 Range/Units 07:14 WBC 13.0 H (4.3-11.1) K/mcL Hgb 13.7 (11.5-15.4) g/dL Hct 39.4 (35.3-44.9) % Plt Count 384 (140-400) K/mcL Neutrophils # 7.8 (1.6-8.9) K/mcL BMP 10/23/18 09:15 Sodium 136 Potassium 2.9 L Chloride 106 Carbon Dioxide 22 L BUN 5 L Creatinine 0.53 L Glucose 131 H Calcium 9.1 - Impressions Impressions Abdomen/Pelvis CT 10/22/18 01:12 IMPRESSION: No acute abdominal or pelvic findings. No evidence of urinary tract stone disease. Normal appendix. D/ / 10/22/2018 07:34:40 Trevon Shearer / margarita Interpreting Provider: Trevon Shearer - Attending Attestation I examined this patient and my medical decision-making was reviewed with the Resident Physician. I agree with the documented findings, disposition and treatment plan as described except to the extent set forth below. <Shey Martell N - Last Filed: 10/23/18 13:03> (3) Hypothyroid Qualifiers: Hypothyroidism type: unspecified Qualified Code(s): E03.9 - Hypothyroidism, unspecified (6) Intractable nausea and vomiting Qualifiers: Vomiting type: unspecified Qualified Code(s): R11.2 - Nausea with vomiting, unspecified <Andria Lama Rheem - Last Filed: 10/23/18 17:11> (5) Hypothyroid Qualifiers: Hypothyroidism type: unspecified Qualified Code(s): E03.9 - Hypothyroidism, unspecified (6) Intractable nausea and vomiting Qualifiers: Vomiting type: unspecified Qualified Code(s): R11.2 - Nausea with vomiting, unspecified
[2018-10-23] MEDS: Acetaminophen 325 MG TABLET PO PRN ×2 (10:01→15:30)
[2018-10-23 10:08] LABS: BUN/Creatinine Ratio 9 (6-26); Blood Urea Nitrogen 5 mg/dL (6-20); Calcium 9.1 mg/dL (8.6-10.3); Carbon Dioxide 22 mEq/L (23-29); Chloride 106 mEq/L (98-107); Glucose 131 mg/dL (70-105); Osmolality,Calculated 281 (280-300); Potassium 2.9 mEq/L (3.5-5.1); Sodium 136 mEq/L (136-145); eGFR For Non-African Americans > 60 (> 60)
[2018-10-23] MEDS ORDERED: Potassium Chloride 40 MEQ, Lidocaine 1% 2 ML in D5% in Water 500 ML IVPB ONE (11:09)
[2018-10-23] MEDS: *HR* Promethazine 25 MG/ML VIAL IVP PRN ×2 (12:41→18:22)
[2018-10-23] MEDS ORDERED: SUMAtriptan succinate 50 MG TABLET PO ONE (16:04)
[2018-10-23] MEDS: traZODone 50 MG TABLET PO SCH (20:21)
[2018-10-24] MEDS: Acetaminophen 325 MG TABLET PO PRN ×3 (05:08→16:20)
[2018-10-24] MEDS: *HR* Promethazine 25 MG/ML VIAL IVP PRN ×3 (05:44→17:57)
[2018-10-24] MEDS: *HR* Heparin 5,000 UNIT/ML VIAL SQ SCH ×2 (06:00→17:33)
[2018-10-24] MEDS: Budesonide/Formoterol 160/4.5 1 PUFF INH IH SCH (07:31)
[2018-10-24 07:50] LABS: Basophils # 0.1 K/mcL (0.0-0.2); Basophils % 0.8 %; Eosinophils # 0.2 K/mcL (0.0-0.6); Eosinophils % 1.4 %; Hematocrit 41.3 % (35.3-44.9); Immature Granulocytes % 0.4 % (0-4); Lymphocytes # 3.6 K/mcL (0.6-4.6); Lymphocytes % 29.2 %; Mean Corpuscular HGB Conc 33.9 g/dL (31.6-35.5); Mean Corpuscular Hemoglobin 28.7 pg (28.0-33.3); Mean Corpuscular Volume 84.6 fL (83.0-100.0); Mean Platelet Volume 9.6 fL (9.4-12.4); Monocytes # 1.3 K/mcL (0.0-1.3); Monocytes % 10.7 %; Neutrophils # 7.1 K/mcL (1.6-8.9); Platelet Count 360 K/mcL (140-400); Red Blood Count 4.88 M/mcL (3.82-4.97); Red Cell Distribution Width 12.9 % (11.5-14.5); Segmented Neutrophils % 57.5 %
[2018-10-24 08:08] LABS: BUN/Creatinine Ratio 11 (6-26); Blood Urea Nitrogen 7 mg/dL (6-20); Calcium 9.2 mg/dL (8.6-10.3); Carbon Dioxide 22 mEq/L (23-29); Chloride 107 mEq/L (98-107); Glucose 80 mg/dL (70-105); Magnesium 1.9 mg/dL (1.6-2.6); Osmolality,Calculated 279 (280-300); Potassium 3.7 mEq/L (3.5-5.1); Sodium 136 mEq/L (136-145); eGFR For Non-African Americans > 60 (> 60)
[2018-10-24] MEDS: Ketorolac 30 MG/ML VIAL IVP PRN (08:12)
--- NOTE | 2018-10-24 08:12 | Internal Med Progress Note ---
Hospitalist Progress Note - Encounter Date of Encounter: 10/24/18 Time of Encounter: 08:12 - Subjective Interval History: Ms. Wei was seen and evaluated this morning at the bedside. At that time, she was quite teaful, and was crying secondary to abdominal pain that she rates as 9/10 in severity. She indicates that the pain is localized in the epigastric area and does not radiate. Patient says that she has not had this type of pain since she had her gallbladder removed in June 2017. She states that her symptoms first started on , and have increased in frequency since them. She reports little relief of her nausea with zofran. She reports one episode of diarrhea today, which she states is brown in color, and denies any hematochezia. She also states that she is not tolerating clear liquids well. Staff reports that she has repeatedly voiced anxiety during this admission. - Exam Vitals: Temp Pulse Resp BP Pulse Ox 97.9 F 82 17 117/80 98 10/24/18 03:36 10/24/18 03:36 10/24/18 07:34 10/24/18 03:36 10/24/18 07:34 - Assessment and Plan (1) Intractable nausea and vomiting Current Visit: Yes Status: Acute (2) Hypokalemia Current Visit: Yes Status: Acute (3) Anxiety and depression Current Visit: Yes Status: Chronic (4) Hypothyroid Current Visit: Yes Status: Chronic (5) Smoking Current Visit: Yes Status: Chronic (6) DVT prophylaxis Current Visit: Yes Status: Acute - Time Spent with Patient Total time spent is greater than 50% in coordination of care (as documented) at patient's floor/unit and/or counseling patient: Internal Medicine: Result - Labs CBC & Chem 7: 10/24/18 07:05 10/24/18 07:05 Labs: Short CBC 10/24/18 Range/Units 07:05 WBC 12.4 H (4.3-11.1) K/mcL Hgb 14.0 (11.5-15.4) g/dL Hct 41.3 (35.3-44.9) % Plt Count 360 (140-400) K/mcL Neutrophils # 7.1 (1.6-8.9) K/mcL BMP 10/23/18 10/24/18 09:15 07:05 Sodium 136 136 Potassium 2.9 L 3.7 D Chloride 106 107 Carbon Dioxide 22 L 22 L BUN 5 L 7 Creatinine 0.53 L 0.61 Glucose 131 H 80 Calcium 9.1 9.2 Consult Discharge Plan - Plan Referrals: NONE,PCP [Primary Care Provider] - (1) Intractable nausea and vomiting Qualifiers: Vomiting type: unspecified Qualified Code(s): R11.2 - Nausea with vomiting, unspecified (4) Hypothyroid Qualifiers: Hypothyroidism type: unspecified Qualified Code(s): E03.9 - Hypothyroidism, unspecified
[2018-10-24] MEDS: Nicotine 21 MG PATCH.TD24 TD SCH (08:14)
[2018-10-24] MEDS: Pregabalin 50 MG CAPSULE PO SCH (08:16)
[2018-10-24] MEDS: Baclofen 10 MG TABLET PO SCH ×2 (08:16→14:06)
[2018-10-24] MEDS: Famotidine 20 MG TABLET PO SCH (08:17)
--- NOTE | 2018-10-24 10:00 | Gastroenterology Consult Note ---
<Dionna Swan - Last Filed: 10/24/18 09:48> Date of Encounter: 10/24/18 Time of Encounter: 09:20 - Assessment and plan (1) Abdominal pain Current Visit: Yes Status: Acute Assessment and plan: Pt has chronic abdominal pain, has been seen as an outpatient for IBS with diarrhea and constipation. She presents with epigastric pain, she has been taking ibuprofen multiple times a day. She may need EGD to rule out gastritis or pud, will discuss with Dr Gardiner. Continue ppi and antiemetics as needed. Qualifiers: Abdominal location: epigastric Qualified Code(s): R10.13 - Epigastric pain (2) Vomiting Current Visit: No Status: Chronic Assessment and plan: Pt has chronic nausea per office notes, has been on zofran and phenergan at home. She admits to daily marijuana use and may have canabinoid hyperemesis syndrome. Qualifiers: Vomiting type: unspecified Vomiting Intractability: unspecified Nausea presence: unspecified Qualified Code(s): R11.10 - Vomiting, unspecified (3) Irritable bowel syndrome Current Visit: No Status: Chronic - Time Spent With Patient Total time spent is greater than 50% in coordination of care (as documented) at patient's floor/unit and/or counseling patient: GI History of Present Illness - Data of Consult Patient: known to practice within the last 3 years Consult date: 10/24/18 Requesting Physician: Ariadne Lama MD - Consult Narrative Reason for consult: epigastric pain, nausea and vomiting History of present illness: Jennifer Wei is a 43-year-old woman with a pmhx of IBS, GERD, asthma, depression, anxiety, PTSD, fibromyalgia, insomnia, hypothyroidism, and TMJ. She presented with complaints of 3 days of mid abdominal and epigastric pain associated with nausea and multiple episodes of vomiting with occasional diarrhea. She states last Tuesday she made a follow up appt with Dr Gardiner because she had upper abdominal bloating, pain and nausea. She also reports she was constipated at that time and she started taking miralax, enemas and glycerin suppositories but they weren't helping. On she began having diarrhea, a nd vomiting. She denies any hemetemesis, hematochezia, or melena. She has had some chills but no fever. She feels significantly fatigued and malaise. She has been feeling it as a burning sensation in the middle of her abdomen. Labs on admission revealed a potassium of 2.8, leukocyte count of 15.6 and sodium of 134. Review of old records it is noted that she has frequently had a leukocyte level at that range. Attempts were made to supplement her potassium orally but she vomited them. She received multiple doses of pain medications and antiemetics with no relief. CT abdomen/pelvis was done which showed no acute anomalies. She admits to daily chronic marijuana use. She also admits to taking ibuprofen 800 mg 2-3 times a day. procedures: EGD/colonoscopy 02/01 1 mm tubular adenoma, normal EGD anticoagulants: none nsaids: ibuprofen 800 mg 2-3 times a day Past Med Surg Social Fam HX - Past Medical History Medical history: arthritis, asthma, COPD, fibromyalgia, GERD, migraine, thyroid disease Additional medical history: hypothyroidism Psychiatric history: anxiety, bipolar, depression, PTSD, prior suicide attempt, previous psychiatric hospitalization - Past Surgical History Surgical History: cholecystectomy, hysterectomy - Social History Smoking Status: Current every day smoker Smokeless Tobacco Status: No Alcohol use: none Drug use: marijuana - Family History Father Adopted: No Family Member Ethnicity: Non- Living Status: Hx Family Cardiac Disorders: Yes (hyperlipidemia) Hx Family Respiratory Disorders: No Hx Family Cancer: Yes (Esophageal) Hx Family GI Disorders: No Hx Family Endocrine Disorder: No Hx Family Neuromuscular Disorders: No Hx Family Neurologic Disorders: Yes (anxiety) Hx Family HEENT Disorders: No Hx Family Autoimmune Disorders: No Mother Adopted: No Family Member Ethnicity: Non- Living Status: Still Living Hx Family Cardiac Disorders: No Hx Family Respiratory Disorders: Yes Hx Family Cancer: No Hx Family GI Disorders: Yes (Kidney stones, IBS) Hx Family Endocrine Disorder: No Hx Family Neuromuscular Disorders: No Hx Family Neurologic Disorders: Yes (Anxiety) Hx Family HEENT Disorders: No Hx Family Autoimmune Disorders: No Review of Systems: GI: as per [facility] GENERAL: denies fever, has some chills EYES: denies yellow discoloration ENT: denies pain with swallowing or difficulty swallowing CARDIO: denies chest pain, palpitations RESP: Shortness of breath with exertion : denies change in color of urine NEURO: weakness HEME: Denies any bruising MS: chronic back and joint pain DERM: denies rash or itching PSYCH: history of anxiety, depression, and PTSD - Constitutional Vitals: Temp Pulse Resp BP Pulse Ox 97.9 F 82 17 117/80 98 10/24/18 03:36 10/24/18 03:36 10/24/18 07:34 10/24/18 03:36 10/24/18 07:34 Exam: CONSTITUTIONAL:alert, no acute distress.HEAD:normocephalic.EYES:no jaundice.NECK:no obvious swelling.HEART:regular rate and rhythm, no murmurs.LUNGS:bilateral good air entry.ABDOMEN:non distended, soft, tender to epigastric area, no masses palpable, no organomegaly.RECTAL EXAM:Deferred.EXTREMITIES:no clubbing, cyanosis or edema.SKIN:no stigmata of chronic liver disease.NEUROLOGIC:no obvious focal defect. Results - Labs CBC & Chem 7: 10/24/18 07:05 10/24/18 07:05 Labs: Last Result Calcium 9.2 mg/dL (8.6-10.3) 10/24/18 07:05 Urine Opiates Screen Positive ng/mL (Fxfcvr=682) H 10/22/18 01:23 Entire Visit Hgb 14.0 g/dL (11.5-15.4) 10/24/18 07:05 Hct 41.3 % (35.3-44.9) 10/24/18 07:05 Total Bilirubin 0.3 mg/dL (0.3-1.0) 10/22/18 01:26 AST 10 Units/L (13-39) L 10/22/18 01:26 ALT 13 Units/L (7-52) 10/22/18 01:26 Lipase 25 Units/L (11-82) 10/22/18 01:26 Consult Discharge Plan - Plan Referrals: NONE,PCP [Primary Care Provider] - <Stephen Gardiner - Last Filed: 10/24/18 18:13> Date of Encounter: 10/24/18 Time of Encounter: 15:00 - Time Spent With Patient Total time spent is greater than 50% in coordination of care (as documented) at patient's floor/unit and/or counseling patient: GI History of Present Illness - Data of Consult Requesting Physician: Ariadne Lama MD - Consult Narrative History of present illness: Ms. Wei is a 43 year old female - Constitutional Vitals: Temp Pulse Resp BP Pulse Ox 98.2 F 69 16 111/80 94 10/24/18 16:33 10/24/18 16:33 10/24/18 16:33 10/24/18 16:33 10/24/18 16:33 Results - Labs CBC & Chem 7: 10/24/18 07:05 10/24/18 07:05 Labs: Last Result Calcium 9.2 mg/dL (8.6-10.3) 10/24/18 07:05 Urine Opiates Screen Positive ng/mL (Ntrfaz=834) H 10/22/18 01:23 Entire Visit Hgb 14.0 g/dL (11.5-15.4) 10/24/18 07:05 Hct 41.3 % (35.3-44.9) 10/24/18 07:05 Total Bilirubin 0.3 mg/dL (0.3-1.0) 10/22/18 01:26 AST 10 Units/L (13-39) L 10/22/18 01:26 ALT 13 Units/L (7-52) 10/22/18 01:26 Lipase 25 Units/L (11-82) 10/22/18 01:26 - Attending Attestation I have personally performed a face to face evaluation on this patient. I have reviewed and agree with the care plan. History and Exam by me shows: Patient seen. Complaining of epigastric discomfort on examination one epigastric tenderness. Assessment: Patient with epigastric pain does take NSAIDs. Rec: EGD to rule out gastritis peptic ulcer disease etc.
[2018-10-24] MEDS: hydrOXYzine pamoate 25 MG CAPSULE PO PRN (12:01)
[2018-10-24] MEDS ORDERED: SUMAtriptan succinate 50 MG TABLET PO PRN (14:33)
[2018-10-24] MEDS ORDERED: *HR* FentaNYL (PF) 100 MCG/2 ML VIAL ONE (14:53)
[2018-10-24] MEDS ORDERED: Simethicone 40 MG/0.6 ML MLS IR ONE (14:54)
[2018-10-24] MEDS ORDERED: Tetracaine/Benzocaine/Butamben 1 SPRAY AEROSOL MM ONE (14:54)
[2018-10-24] MEDS ORDERED: *HR* Midazolam HCl 5 MG/5 ML VIAL IVP ONE (14:54)
[2018-10-24] MEDS ORDERED: *HR* FentaNYL (PF) 100 MCG/2 ML VIAL IVP ONE (14:54)
--- NOTE | 2018-10-24 14:56 | Pre-Sedation Evaluation ---
Pre-sedation evaluation - Pre-sedation checklist Date of procedure: 10/24/18 Procedure: EGD Recent Vitals: Last Vital Signs Temp 98.4 F 10/24/18 14:45 Pulse 70 10/24/18 14:45 Resp 16 10/24/18 14:45 BP 121/81 10/24/18 14:45 Pulse Ox 96 10/24/18 14:45 H&P (including ROS) documented in medical record: Yes Previous reaction to sedatives/anesthetics: No Dietary Status: NPO after Midnight Dentition: No loose teeth or bridges ASA Classification *see protocol: CLASS II-Mild systemic disease Plan of Care: Pt appropriate candidate for procedure/moderate/conscious sedation, Risks/benefits of procedure/sedation discussed w/ patient/family
[2018-10-24] MEDS: *HR* Midazolam HCl 5 MG/5 ML VIAL IVP ONE ×2 (15:05→15:11)
[2018-10-24 16:34] VITALS: BP 111/80
--- NOTE | 2018-10-24 16:47 | Discharge Summary ---
Orders not resulted at time of discharge: Pending orders 10/24/18 15:14 Surgical Pathology [PTH] Routine Date of Encounter: 10/24/18 Time of Encounter: 16:47 - Discharge Diagnosis (1) Intractable nausea and vomiting Status: Acute Qualifiers: Vomiting type: unspecified Qualified Code(s): R11.2 - Nausea with vomiting, unspecified (2) Hypokalemia Status: Acute (3) Anxiety and depression Status: Chronic (4) Hypothyroid Status: Chronic Qualifiers: Hypothyroidism type: unspecified Qualified Code(s): E03.9 - Hypothyroidism, unspecified (5) Smoking Status: Chronic (6) DVT prophylaxis Status: Acute Hospital course: Ms. Wei is a 43 year old female - Time Spent with Patient Total time spent providing and/or coordinating discharge services: - Discharge Medications Home Medications: Lurasidone HCl [Latuda] 120 mg PO HS 04/25/15 [History] Albuterol Sulfate [Proair Hfa] 1 puff IH TID PRN 05/24/16 [History] HydrOXYzine Pamoate [Vistaril] 100 mg PO HS 05/24/16 [History] Levothyroxine Sodium [Tirosint] 50 mcg PO DAILY 05/24/16 [History] Montelukast [Singulair] 10 mg PO HS 02/21/17 [History] Pantoprazole Sodium [Protonix] 40 mg PO BID 02/21/17 [History] Baclofen [Lioresal] 10 mg PO TID 04/23/17 [History] Acetaminophen [Tylenol] 650 mg PO Q6HR PRN tab 04/25/17 [Rx] Budesonide/Formoterol 160/4.5 [Symbicort 160/4.5] 2 puff PO BID 10/22/18 [History] Buspirone HCl [Buspar] 30 mg PO BID 10/22/18 [History] DULoxetine [Cymbalta] 30 mg PO DAILY 10/22/18 [History] Dicyclomine Hcl [Bentyl] 20 mg PO DAILY PRN 10/22/18 [History] Doxycycline Hyclate 100 mg PO BID 10/22/18 [History] Duloxetine HCl [Cymbalta] 60 mg PO DAILY 10/22/18 [History] Ibuprofen 800 mg PO Q8H PRN 10/22/18 [History] Pregabalin [Lyrica] 200 mg PO BID 10/22/18 [History] Propranolol [Inderal] 10 mg PO DAILY 10/22/18 [History] Ranitidine HCl [Acid Human Services Instructor] 150 mg PO BID 10/22/18 [History] Rizatriptan Benzoate [Maxalt D[employer] Worker] 10 mg PO DAILY PRN 10/22/18 [History] hydrOXYzine HCl [Hydroxyzine HCl] 25 mg PO TID 10/22/18 [History] traZODone [TraZODone] 50 mg PO HS 10/22/18 [History] Allergies/Adverse Reactions: Allergy/AdvReac Type Severity Reaction Status Date / Time latex Allergy Rash Verified 12/21/17 11:08 naproxen [From Naprosyn] Allergy Swelling Verified 12/21/17 11:08 of Lip/Tongue/Throat aluminum hydroxide AdvReac Vomiting Verified 12/21/17 11:08 [From Mylanta] bismuth subsalicylate AdvReac Vomiting Verified 12/21/17 11:08 [From Pepto-Bismol] caffeine AdvReac Vomiting Verified 12/21/17 11:08 calcium carbonate AdvReac Vomiting Verified 12/21/17 11:08 [From Mylanta] codeine AdvReac Vomiting Verified 12/21/17 11:08 magnesium [From Mylanta] AdvReac Vomiting Verified 12/21/17 11:08 simethicone [From Mylanta] AdvReac Vomiting Verified 12/21/17 11:08 tramadol [From Ultram] AdvReac Nausea Verified 12/21/17 11:08 Date of admission: 10/23/18 07:48 Primary care physician: PCP NONE Consults: 10/23/18 13:40 Consult to Gastroenterology [CONS] Routine Consulting Provider: [facility] Reason for Consult: Intractable nausea/vomiting. Complains of severe epigastric pain. Established with Dr. Gardiner in outpatient clinic. Time Notified: 13:42 Call Completed: No - Constitutional Vitals: Temp Pulse Resp BP Pulse Ox 98.2 F 69 16 111/80 94 10/24/18 16:33 10/24/18 16:33 10/24/18 16:33 10/24/18 16:33 10/24/18 16:33 - Patient Status Condition: Fair - Discharge Instructions Follow Up With: NONE,PCP [Primary Care Provider] -
--- NOTE | 2018-10-24 18:14 | Discharge Summary ---
<Simone Rojas - Last Filed: 10/24/18 18:10> - NOTES TO OUTPATIENT PROVIDER Notes to Outpatient Provider: Patient was admitted with intractable nausea and vomiting with abdominal pain. There is some concern that this is due to marijuana hyperemesis, however she did have EGD which demonstrated small ulcer. Discharged on twice a day Protonix and Carafate. Follow up with GI. Orders not resulted at time of discharge: Pending orders 10/24/18 15:14 Surgical Pathology [PTH] Routine Date of Encounter: 10/24/18 Time of Encounter: 18:10 - Discharge Diagnosis (1) Intractable nausea and vomiting Priority: Secondary Status: Acute Qualifiers: Vomiting type: unspecified Qualified Code(s): R11.2 - Nausea with vomiting, unspecified (2) Hypokalemia Priority: Secondary Status: Resolved (3) Smoking Priority: Secondary Status: Chronic (4) Anxiety and depression Priority: Secondary Status: Chronic (5) Hypothyroid Priority: Secondary Status: Chronic Qualifiers: Hypothyroidism type: unspecified Qualified Code(s): E03.9 - Hypothyroidism, unspecified (6) Gastric ulcer Priority: Primary Status: Acute Qualifiers: Gastric ulcer chronicity: acute Gastric ulcer complication status: without hemorrhage or perforation Qualified Code(s): K25.3 - Acute gastric ulcer without hemorrhage or perforation Hospital course: Ms. Wei is a 43 year old female with history of asthma, COPD, fibromyalgia and multiple psychiatric complaints who has been seen by gastroenterology in the past who presented to the emergency room initially for complaint of several day history of nausea and vomiting which is intractable. The patient does have extensive history of GERD for which she has been seen by Dr. Gardiner in the past, however she was having epigastric pain with nausea and vomiting that she said was intolerable. On arrival, the patient did have labs that demonstrated severe hypokalemia, however she had an abdominal CT that was generally normal. Gastroenterology did see the patient and she had an EGD which demonstrated a small non-bleeding gastric ulcer. The patient has had success at updating her nausea and vomiting given Phenergan, and she is stable for discharge with follow-up at PCP and GI. - Time Spent with Patient Total time spent providing and/or coordinating discharge services: - Discharge Medications Prescriptions: Promethazine [Phenergan] 12.5 mg PO Q8HR PRN #12 tablet PRN Reason: Nausea and Vomiting Esomeprazole Magnesium [Nexium] 20 mg PO BID 30 Days #60 capsule. Sucralfate [Carafate] 1 gm PO QID 30 Days #1 bottle Home Medications: Lurasidone HCl [Latuda] 120 mg PO HS 04/25/15 [History] Albuterol Sulfate [Proair Hfa] 1 puff IH TID PRN 05/24/16 [History] HydrOXYzine Pamoate [Vistaril] 100 mg PO HS 05/24/16 [History] Levothyroxine Sodium [Tirosint] 50 mcg PO DAILY 05/24/16 [History] Montelukast [Singulair] 10 mg PO HS 02/21/17 [History] Baclofen [Lioresal] 10 mg PO TID 04/23/17 [History] Acetaminophen [Tylenol] 650 mg PO Q6HR PRN tab 04/25/17 [Rx] Budesonide/Formoterol 160/4.5 [Symbicort 160/4.5] 2 puff PO BID 10/22/18 [History] Buspirone HCl [Buspar] 30 mg PO BID 10/22/18 [History] DULoxetine [Cymbalta] 30 mg PO DAILY 10/22/18 [History] Dicyclomine Hcl [Bentyl] 20 mg PO DAILY PRN 10/22/18 [History] Duloxetine HCl [Cymbalta] 60 mg PO DAILY 10/22/18 [History] Ibuprofen 800 mg PO Q8H PRN 10/22/18 [History] Pregabalin [Lyrica] 200 mg PO BID 10/22/18 [History] Propranolol [Inderal] 10 mg PO DAILY 10/22/18 [History] Ranitidine HCl [Acid Plate Maker] 150 mg PO BID 10/22/18 [History] Rizatriptan Benzoate [Maxalt Picture Framer] 10 mg PO DAILY PRN 10/22/18 [History] hydrOXYzine HCl [Hydroxyzine HCl] 25 mg PO TID 10/22/18 [History] traZODone [TraZODone] 50 mg PO HS 10/22/18 [History] Esomeprazole Magnesium [Nexium] 20 mg PO BID 30 Days #60 capsule. 10/24/18 [Rx] Promethazine [Phenergan] 12.5 mg PO Q8HR PRN #12 tablet 10/24/18 [Rx] Sucralfate [Carafate] 1 gm PO QID 30 Days #1 bottle 10/24/18 [Rx] Allergies/Adverse Reactions: Allergy/AdvReac Type Severity Reaction Status Date / Time latex Allergy Rash Verified 12/21/17 11:08 naproxen [From Naprosyn] Allergy Swelling Verified 12/21/17 11:08 of Lip/Tongue/Throat aluminum hydroxide AdvReac Vomiting Verified 12/21/17 11:08 [From Mylanta] bismuth subsalicylate AdvReac Vomiting Verified 12/21/17 11:08 [From Pepto-Bismol] caffeine AdvReac Vomiting Verified 12/21/17 11:08 calcium carbonate AdvReac Vomiting Verified 12/21/17 11:08 [From Mylanta] codeine AdvReac Vomiting Verified 12/21/17 11:08 magnesium [From Mylanta] AdvReac Vomiting Verified 12/21/17 11:08 simethicone [From Mylanta] AdvReac Vomiting Verified 12/21/17 11:08 tramadol [From Ultram] AdvReac Nausea Verified 12/21/17 11:08 Date of admission: 10/23/18 07:48 Primary care physician: PCP NONE Consults: 10/23/18 13:40 Consult to Gastroenterology [CONS] Routine Consulting Provider: [facility] [place] Reason for Consult: Intractable nausea/vomiting. Complains of severe epigastric pain. Established with Dr. Gardiner in outpatient clinic. Time Notified: 13:42 Call Completed: No Discharging clinician: Simone Rojas Anticipated date of discharge: 10/24/18 - Constitutional Vitals: Temp Pulse Resp BP Pulse Ox 98.2 F 69 16 111/80 94 10/24/18 16:33 10/24/18 16:33 10/24/18 16:33 10/24/18 16:33 10/24/18 16:33 Exam: Gen: Vitals noted. No acute distress. Eyes: anicteric sclerae, moist conjunctivae; no lid-lag; Pupils equal and reactive to light HENT: Atraumatic; oropharynx clear with moist mucous membranes and no mucosal ulcerations; normal hard and soft palate Neck: Trachea midline; supple, no thyromegaly or lymphadenopathy Cardiac: RRR, no murmur, +S1/S2 Pulmonary: CTA bilaterally, no wheezes, rales or rhonchi, equal chest expansion Abdomen: soft, mild tenderness to palpation in the epigastric region, no guarding. No masses or hepatosplenomegaly MSK: ROM intact, no joint swelling noted Extremities: no BLE edema, nontender calf, no cyanosis or clubbing Skin: Normal temperature, turgor and texture; no rash, ulcers or subcutaneous nodules Neuro: moves all extremities, no focal deficits. Psych: Appropriate mood and behavior, flat affect. A&Ox3 - Patient Status Disposition: Home, Self-Care Condition: Fair Functional capacity at discharge: independent ambulation Overall status at discharge: patient is back to baseline - Discharge Instructions Follow Up With: NONE,PCP [Primary Care Provider] - Additional Instructions: Discontinue Protonix, start Nexium twice a day. Start Carafate oral solution 4 times a day. Use Phenergan as needed every 8 hours for nausea and vomiting. Avoid spicy or acidic foods. Avoid NSAIDs like Advil, Motrin or Aleve as they will irritate the ulcer and likely instigate more. Avoid use of marijuana as it may induce intractable nausea and vomiting. For repeat episodes of pain, nausea, vomiting or if you notice unusually dark or black tarry stools, return to the ED. Follow-up with primary care within a week and a half. Follow-up with GI for repeat scope as directed. - Diet and Activity Activity: increase activity as tolerated Diet: regular diet <Ariadne Lama - Last Filed: 10/25/18 04:31> Orders not resulted at time of discharge: Pending orders 10/24/18 15:14 Surgical Pathology [PTH] Routine Date of Encounter: 10/25/18 - Discharge Diagnosis (1) Hypokalemia Status: Resolved (2) Smoking Status: Chronic (3) Anxiety and depression Status: Chronic (4) Hypothyroid Status: Chronic Qualifiers: Hypothyroidism type: unspecified Qualified Code(s): E03.9 - Hypothyroidism, unspecified (5) Intractable nausea and vomiting Status: Acute Qualifiers: Vomiting type: unspecified Qualified Code(s): R11.2 - Nausea with vomiting, unspecified (6) Gastric ulcer Status: Acute Qualifiers: Gastric ulcer chronicity: acute Gastric ulcer complication status: without hemorrhage or perforation Qualified Code(s): K25.3 - Acute gastric ulcer without hemorrhage or perforation Hospital course: Ms. Wei is a 43 year old female - Time Spent with Patient Total time spent providing and/or coordinating discharge services: Date of admission: 10/23/18 07:48 Primary care physician: PCP NONE Consults: 10/23/18 13:40 Consult to Gastroenterology [CONS] Routine Consulting Provider: [facility] [place] Reason for Consult: Intractable nausea/vomiting. Complains of severe epigastric pain. Established with Dr. Gardiner in outpatient clinic. Time Notified: 13:42 Call Completed: No - Constitutional Vitals: Temp Pulse Resp BP Pulse Ox 98.2 F 69 16 111/80 94 10/24/18 16:33 10/24/18 16:33 10/24/18 16:33 10/24/18 16:33 10/24/18 16:33 - Attending Attestation I examined this patient and my medical decision-making was reviewed with the Resident Physician. I agree with the documented findings, disposition and treatment plan as described except to the extent set forth below.
--- NOTE | 2018-10-25 14:16 | Electrocardiograph Report ---
[address] [address] Test Date: 2018-10-22 Pat Name: Jennifer Wei Department: [id number] Room: 3A24 Gender: F Map Clerk: : 1975 Requested By: Aden Yu Order Number: [id number] Reading MD: Pepe Presley Measurements Intervals [place] Rate: 55 P: 60 [place]: 137 QRS: 38 QRSD: 117 T: 46 QT: 474 QTc: 454 Interpretive Statements Sinus rhythm Nonspecific intraventricular conduction delay Low voltage, precordial leads Nonspecific ST-T abnormalities Electronically Signed On 10-25-2018 14:14:26 EST by Pepe Presley
== END 2018-10-24 18:54 | disposition home or self-care (01) | DRG 384 ==
LOC: 3ANU 23:58 → EMEROOARM 23:58 → SUATTDRO 10-22 04:17 → 3ANU 10-22 05:30
PROVIDERS: ADMIT Internal Medicine; ATTEND Student in an Organized Health Care Education/Training Program
PROC: ENDOEBX (2018-10-24 14:45)

== ENCOUNTER 2020-07-28 20:00 | Observation (INO) ==
[2020-07-28 21:35] LABS: Basophils # 0.1 K/mcL (0.0-0.2); Basophils % 0.9 %; Eosinophils # 0.1 K/mcL (0.0-0.6); Eosinophils % 0.7 %; Hematocrit 47.3 % (35.3-44.9); Hemoglobin 16.2 g/dL (11.5-15.4); Immature Granulocytes % 0.3 % (0-4); Lymphocytes # 3.7 K/mcL (0.6-4.6); Lymphocytes % 24.6 %; Mean Corpuscular HGB Conc 34.2 g/dL (31.6-35.5); Mean Corpuscular Hemoglobin 31.2 pg (28.0-33.3); Mean Corpuscular Volume 91.1 fL (83.0-100.0); Mean Platelet Volume 9.8 fL (9.4-12.4); Monocytes # 1.3 K/mcL (0.0-1.3); Monocytes % 8.4 %; Neutrophils # 9.9 K/mcL (1.6-8.9); Platelet Count 314 K/mcL (140-400); Red Blood Count 5.19 M/mcL (3.82-4.97); Red Cell Distribution Width 13.2 % (11.5-14.5); Segmented Neutrophils % 65.1 %; White Blood Count 15.2 K/mcL (4.3-11.1)
[2020-07-28 22:17] LABS: Alanine Aminotransferase 150 Units/L (7-52); Albumin 4.4 g/dL (3.5-5.7); Albumin/Globulin Ratio 1.4 (1.1-2.2); Alkaline Phosphatase 145 Units/L (34-104); Aspartate Amino Transferase 228 Units/L (13-39); BUN/Creatinine Ratio 21 (6-26); Bilirubin,Direct 0.1 mg/dL (0.0-0.2); Bilirubin,Indirect 0.3 mg/dL (0.0-1.0); Bilirubin,Total 0.4 mg/dL (0.3-1.0); Blood Urea Nitrogen 13 mg/dL (6-20); Calcium 9.3 mg/dL (8.6-10.3); Carbon Dioxide 24 mEq/L (23-29); Chloride 105 mEq/L (98-107); Globulin 3.1 g/dL (2.4-3.5); Glucose 84 mg/dL (70-105); Lipase 16 Units/L (11-82); Osmolality,Calculated 281 (280-300); Potassium 4.3 mEq/L (3.5-5.1); Sodium 136 mEq/L (136-145); Thyroid Stimulating Hormone 0.512 mcIU/mL (0.340-5.600); Total Protein 7.5 g/dL (6.4-8.9); Troponin I < 0.03 ng/mL (< 0.04); eGFR For African Americans > 60 (> 60); eGFR For Non-African Americans > 60 (> 60)
[2020-07-28] MEDS ORDERED: Famotidine 20 MG/2 ML VIAL IVP ONE (22:50)
[2020-07-28] MEDS ORDERED: Ondansetron ODT 4 MG TAB.RAPDIS SL ONE (22:50)
[2020-07-29] MEDS ORDERED: Acetaminophen 325 MG TABLET PO ONE ×2 (00:44→01:00)
[2020-07-29] MEDS ORDERED: Isovue-370 500 ML BOTTLE IVP ONE (00:45)
[2020-07-29 06:27] LABS: Hepatitis B Surface Antigen Nonreactive (Nonreactive)
[2020-07-29 06:56] LABS: Hepatitis C Virus Antibody Nonreactive (Nonreactive)
[2020-07-29 06:58] LABS: Hepatitis A Antibody IgM Nonreactive (Nonreactive); Hepatitis B Core IgM Nonreactive (Nonreactive)
[2020-07-29] MEDS ORDERED: Piperacillin/Tazobactam 3.375 GM in 0.9 % Sodium Chloride Mini Bag 100 ML IVPB ONE (07:40)
[2020-07-29] MEDS ORDERED: ALPRAZolam 0.5 MG TABLET PO ONE (07:41)
[2020-07-29] MEDS ORDERED: Piperacillin/Tazobactam 3.375 GM VIAL ONE (08:18)
[2020-07-29 08:56] LABS: Adenovirus Not Detected (Not Detect); Coronavirus 229E Not Detected (Not Detect); Coronavirus HKU1 Not Detected (Not Detect); Coronavirus NL63 Not Detected (Not Detect); Coronavirus OC43 Not Detected (Not Detect); Human Metapneumovirus Not Detected (Not Detect); Human Rhinovirus/Enterovirus Not Detected (Not Detect); SARS-CoV-2 Not Detected (Not Detect)
[2020-07-29 08:57] LABS: Bordetella Pertussis Not Detected (Not Detect); Chlamydophila pneumoniae Not Detected (Not Detect); Influenza A Subtype 2009 H1 Not Detected (Not Detect); Influenza B Not Detected (Not Detect); Mycoplasma pneumoniae Not Detected (Not Detect); Parainfluenza Virus 1 Not Detected (Not Detect); Parainfluenza Virus 2 Not Detected (Not Detect); Parainfluenza Virus 3 Not Detected (Not Detect); Parainfluenza Virus 4 Not Detected (Not Detect); Respiratory Syncytial Virus Not Detected (Not Detect)
[2020-07-29] MEDS ORDERED: Ondansetron 4 MG/2 ML VIAL IVP PRN (09:57)
[2020-07-29] MEDS ORDERED: *HR* Promethazine 25 MG/ML VIAL IM PRN (09:57)
[2020-07-29] MEDS ORDERED: Naloxone 0.4 MG/ML INJ IVP PRN (09:57)
[2020-07-29] MEDS: 0.9 % Sodium Chloride 1,000 ML IVC SCH (11:03)
[2020-07-29] MEDS: *HR* Buprenorphine HCl 2 MG SUBLINGUAL TABLET SL SCH (13:01)
[2020-07-29] MEDS ORDERED: Piperacillin/Tazobactam 3.375 GM in 0.9 % Sodium Chloride Mini Bag 100 ML IVPB SCH (16:00)
[2020-07-29] MEDS: *HR* Heparin 5,000 UNIT/ML VIAL SQ SCH (17:27)
[2020-07-29] MEDS: Pantoprazole 40 MG VIAL IVP SCH (17:30)
[2020-07-29] MEDS ORDERED: (Rizatriptan Benzoate [Maxalt Mlt] 10 MG) PO PRN (18:52)
[2020-07-29] MEDS: Baclofen 10 MG TABLET PO SCH (20:09)
[2020-07-29] MEDS: Simethicone 80 MG TAB.CHEW PO SCH (20:09)
[2020-07-29] MEDS: Nystatin SUSP 5 ML UD.LIQ BC SCH (20:55)
[2020-07-29] MEDS ORDERED: ARIPiprazole 10 MG TABLET PO SCH (21:00)
[2020-07-29] MEDS ORDERED: Famotidine 20 MG TABLET PO SCH (21:00)
[2020-07-30] MEDS: 0.9 % Sodium Chloride 1,000 ML IVC SCH (03:58)
[2020-07-30 05:26] LABS: Basophils # 0.1 K/mcL (0.0-0.2); Basophils % 0.8 %; Eosinophils # 0.1 K/mcL (0.0-0.6); Eosinophils % 1.1 %; Hematocrit 43.2 % (35.3-44.9); Immature Granulocytes % 0.1 % (0-4); Lymphocytes # 3.4 K/mcL (0.6-4.6); Lymphocytes % 37.9 %; Mean Corpuscular HGB Conc 31.9 g/dL (31.6-35.5); Mean Corpuscular Hemoglobin 29.2 pg (28.0-33.3); Mean Corpuscular Volume 91.3 fL (83.0-100.0); Mean Platelet Volume 10.1 fL (9.4-12.4); Monocytes # 0.8 K/mcL (0.0-1.3); Monocytes % 8.7 %; Neutrophils # 4.6 K/mcL (1.6-8.9); Platelet Count 285 K/mcL (140-400); Red Blood Count 4.73 M/mcL (3.82-4.97); Segmented Neutrophils % 51.4 %; White Blood Count 8.9 K/mcL (4.3-11.1)
[2020-07-30 05:36] LABS: Alanine Aminotransferase 70 Units/L (7-52); Albumin 3.9 g/dL (3.5-5.7); Albumin/Globulin Ratio 1.5 (1.1-2.2); Alkaline Phosphatase 134 Units/L (34-104); Aspartate Amino Transferase 23 Units/L (13-39); BUN/Creatinine Ratio 19 (6-26); Bilirubin,Total 0.4 mg/dL (0.3-1.0); Blood Urea Nitrogen 10 mg/dL (6-20); Calcium 8.9 mg/dL (8.6-10.3); Carbon Dioxide 23 mEq/L (23-29); Chloride 112 mEq/L (98-107); Globulin 2.6 g/dL (2.4-3.5); Glucose 87 mg/dL (70-105); Osmolality,Calculated 296 (280-300); Potassium 3.7 mEq/L (3.5-5.1); Sodium 144 mEq/L (136-145); Total Protein 6.5 g/dL (6.4-8.9); eGFR For African Americans > 60 (> 60); eGFR For Non-African Americans > 60 (> 60)
[2020-07-30 05:57] LABS: Bacteria,Urine Few per hpf (None-Few); Bilirubin,Urine Negative (Negative); Blood,Urine Small (Negative); Clarity,Urine Clear (Clear); Color,Urine Light-Yellow (Yellow); Glucose,Urine (UA) Normal (Normal); Ketones,Urine 80 mg/dL (Negative); Leukocyte Esterase,Urine Negative (Negative); Mucus,Urine Few per lpf (None-Few); Nitrite,Urine Negative (Negative); PH,Urine 6.5 pH Units (5.0-8.0); Protein,Urine Trace mg/dL (Neg-Trace); Specific Gravity,Urine 1.022 (1.010-1.025); Squamous Epithelial Cell,Urine Few per hpf (None-Few); Urobilinogen,Urine Normal (Normal); WBC,Urine 0-3 per hpf (0-3)
[2020-07-30] MEDS: Pantoprazole 40 MG VIAL IVP SCH (06:05)
[2020-07-30] MEDS: *HR* Heparin 5,000 UNIT/ML VIAL SQ SCH (06:06)
[2020-07-30 06:19] LABS: Hemoglobin 13.8 g/dL (11.5-15.4)
[2020-07-30] MEDS: Nystatin SUSP 5 ML UD.LIQ BC SCH ×2 (08:37→13:52)
[2020-07-30] MEDS: Baclofen 10 MG TABLET PO SCH ×2 (08:37→13:49)
[2020-07-30] MEDS: *HR* Buprenorphine HCl 2 MG SUBLINGUAL TABLET SL SCH (08:37)
[2020-07-30] MEDS: Simethicone 80 MG TAB.CHEW PO SCH ×2 (08:37→13:49)
[2020-07-30] MEDS ORDERED: Cholecalciferol (D-3) 1,000 UNIT (25MCG) TABLET PO SCH (09:00)
[2020-07-30] MEDS ORDERED: Bisacodyl 10 MG RECTAL SUPPOSITORY RC ONE (10:37)
[2020-07-30] MEDS ORDERED: Ketorolac 30 MG/ML VIAL IVP ONE (10:48)
[2020-07-30 16:07] VITALS: BP 124/77
[2020-07-30] MEDS ORDERED: Ringers Solution, Lactated 1,000 ML IVC SCH (17:00)
[2020-07-30] MEDS ORDERED: Ketorolac 30 MG/ML VIAL IVP PRN (17:01)
== END 2020-07-30 19:11 | disposition home or self-care (01) ==
LOC: EMEROOARM 20:00 → 3NENU 20:00 → SUATTDRO 07-29 09:40 → 3NENU 07-29 10:34
PROVIDERS: ADMIT Family Medicine; ATTEND Internal Medicine